=== PATIENT | female | born 1970 | race Two or more races ===

== ENCOUNTER 2018-10-14 11:41 | Inpatient (IN) | payer OTHER ==
[~2018-10-14] VITALS: Ht 167.6 cm; Wt 63.2 kg
[2018-10-14 13:13] LABS: Basophils # (auto) 0.1 uL; Eosinophils # (auto) 0.1 uL; Hemoglobin 12.8 g/dL (12.2-16.2); Lymphocytes # (auto) 2.2 uL; Monocytes # (auto) 0.9 uL
[2018-10-14 13:15] LABS: Basophils % (auto) 0.3 % (0.0-2.0); Eosinophils % (auto) 0.3 % (0.0-7.0); Hematocrit 37.6 % (36.0-46.0); Lymphocytes % (auto) 12.1 % (10.0-50.0); Mean Corpuscular Hemoglobin 32.5 pg (28.0-32.0); Mean Corpuscular Hgb Conc. 34.2 g/dL (32.0-36.0); Mean Corpuscular Volume 95.3 fL (80.0-100.0); Monocytes % (auto) 4.9 % (0.0-12.0); Neutrophils % (auto) 82.4 % (37.0-80.0); Nucleated Red Blood Cells % 0.1 %; Red Blood Cells 3.94 10^6/uL (4.0-5.20); Red Cell Distribution Width 12.5 % (11.8-14.3); White Blood Cell 18.2 10^3/uL (4.4-10.8)
[2018-10-14 13:24] LABS: INR 0.95 (0.9-1.15); Partial Thromboplastin Time 28.6 sec (23.78-33.04); Prothrombin Time 10.2 sec (9.27-12.13)
[2018-10-14 13:29] LABS: Albumin 2.2 g/dL (3.4-5.0); BUN/Creatinine Ratio 20.8; Calcium 8.7 mg/dL (8.5-10.1); Potassium 4.1 mmol/L (3.5-5.1)
[2018-10-14 13:32] LABS: Bilirubin, Total 0.3 mg/dL (0.2-1.0); Total Protein 9.2 g/dL (6.4-8.2)
[2018-10-14 14:36] LABS: Platelet Count (auto) 593 10^3/uL (140-450)
[2018-10-14] MEDS ORDERED: SODIUM CHLORIDE 0.9% 1,000 ML IVB ONE (15:21)
[2018-10-14] MEDS ORDERED: CLINDAMYCIN 600MG IV 50 ML IV ONE (15:30)
[2018-10-14] MEDS ORDERED: HYDROcodone-ACET 10/325MG TAB PO ONE (15:30)
[2018-10-14] MEDS ORDERED: NITROGLYCERIN 0.4 MG SL TAB SL PRN (17:30)
[2018-10-14] MEDS ORDERED: MORPHINE SULFATE 4 MG/ML SYR/VIAL IV PRN (17:30)
[2018-10-14] MEDS ORDERED: hydrALAZINE HCL 20 MG/ML VL IV PRN (17:30)
[2018-10-14] MEDS ORDERED: MORPHINE SULFATE 4 MG/ML SYR/VIAL IV ONE (17:30)
[2018-10-14] MEDS ORDERED: VANCOMYCIN PER PHARMACY 0 MG IV SCH (17:30)
[2018-10-14] MEDS ORDERED: DEXTROSE (50%) 50ML SYRG IV PRN (17:45)
[2018-10-14 18:10] LABS: Cholesterol 82 mg/dL (< 200); Triglycerides 126 mg/dL (< 150)
[2018-10-14 18:12] LABS: HDL Cholesterol 34 mg/dL (40-59); LDL Cholesterol 49 mg/dL (< 100)
[2018-10-14] MEDS: PIPERACILLIN-TAZOB 3.375GM 100 ML IV SCH ×2 (18:16→23:50)
[2018-10-14] MEDS: ONDANSETRON HCL 4 MG/2 ML VIAL IV PRN (18:17)
[2018-10-14] MEDS: SODIUM CHLORIDE 0.9% 1,000 ML IV SCH (19:42)
[2018-10-14 21:00] VITALS: BP 144/91
--- NOTE | 2018-10-14 21:00 | NUR ---
MS admit from [facility] admitted to [facility]/MS after SBAR received. Patient oriented to franklin Fagan RN, unit, room, bed, and unit policies regarding patient care and visiting hours. Patient weighed by bedscale and encouraged to call if they need something. All questions and concerns addressed, patient verbalized understanding. Note: pt. refused to take photo on her left foot ulcer due to pain. Addendum: 10/14/18 at 2349 by Katy Hunt RN above note time was 2200
[2018-10-14] MEDS ORDERED: ACETAMINOPHEN 325 MG TAB PO ONE (21:15)
[2018-10-14] MEDS: VANCOMYCIN 1GM/250ML 250 ML IV SCH (21:29)
[2018-10-14 22:00] VITALS: BP 137/79
[2018-10-14] MEDS: ACCU-CHEK COMFORT CURVE STRIP VI SCH (22:19)
[2018-10-14] MEDS: InsuLIN REG 1unit/0.01ml Soln (100units/ml) SC SCH (22:20)
[2018-10-14] MEDS ORDERED: GLIP-116 PO (23:15)
[2018-10-14] MEDS ORDERED: METF-370 PO (23:15)
[2018-10-15] MEDS ORDERED: MAGNESIUM SULFATE 1GM/100ML 200 ML IV ONE (00:17)
[2018-10-15] MEDS: MAGNESIUM SULFATE 1GM/100ML 100 ML IV SCH ×2 (00:18→01:34)
[2018-10-15] MEDS: SODIUM CHLORIDE 0.9% 1,000 ML IV SCH ×3 (01:45→17:45)
[2018-10-15 05:30] VITALS: BP 145/85
[2018-10-15] MEDS: PIPERACILLIN-TAZOB 3.375GM 100 ML IV SCH ×3 (06:00→18:00)
[2018-10-15 06:07] LABS: Basophils # (auto) 0.1 uL; Basophils % (auto) 0.3 % (0.0-2.0); Eosinophils # (auto) 0.1 uL; Hemoglobin 11.6 g/dL (12.2-16.2); Mean Corpuscular Volume 95.1 fL (80.0-100.0); White Blood Cell 15.2 10^3/uL (4.4-10.8)
[2018-10-15 06:10] LABS: Eosinophils % (auto) 0.6 % (0.0-7.0); Hematocrit 34.3 % (36.0-46.0); Lymphocytes # (auto) 2.1 uL; Lymphocytes % (auto) 13.9 % (10.0-50.0); Mean Corpuscular Hemoglobin 32.2 pg (28.0-32.0); Mean Corpuscular Hgb Conc. 33.8 g/dL (32.0-36.0); Monocytes # (auto) 1.2 uL; Neutrophils # (auto) 11.7 uL; Neutrophils % (auto) 77.2 % (37.0-80.0); Platelet Count (auto) 568 10^3/uL (140-450); Red Blood Cells 3.61 10^6/uL (4.0-5.20); Red Cell Distribution Width 12.3 % (11.8-14.3)
[2018-10-15 06:16] LABS: BUN/Creatinine Ratio 19.7; Calcium 8.3 mg/dL (8.5-10.1); Potassium 4.4 mmol/L (3.5-5.1)
[2018-10-15] MEDS: InsuLIN REG 1unit/0.01ml Soln (100units/ml) SC SCH ×4 (06:18→22:48)
[2018-10-15] MEDS: ACCU-CHEK COMFORT CURVE STRIP VI SCH ×4 (06:19→22:35)
--- NOTE | 2018-10-15 08:10 | NUR ---
SHIFT REPORT Received report from Katy SAUCEDA RN. per RN patient refused wound photos.
--- NOTE | 2018-10-15 08:50 | NUR ---
Opening Shift Note Assumed care of patient, awake and alert. No S/S of distress/SOB or pain. Instructed on POC and to call for assist PRN, will continue to monitor for changes Q1hr and PRN.
[2018-10-15 09:00] VITALS: BP 125/84
[2018-10-15] MEDS: VANCOMYCIN 1GM/250ML 250 ML IV SCH ×2 (09:04→21:21)
[2018-10-15] MEDS: HYDROcodone-ACET 5/325MG TAB PO PRN ×3 (09:05→22:35)
--- NOTE | 2018-10-15 12:23 | NUR ---
WOUND CARE/PHOTOS Patient free of pain at this time, agreed to wound care and photos. Photos taken as per policy.
[2018-10-15 13:00] VITALS: BP 126/72
--- NOTE | 2018-10-15 16:30 | NUR ---
WOUND CARE NOTE: Wound care consult received from physician. Patient is a 48 yo female admitted for sepsis and osteomyelitis to left foot. Patient with history of hypertension, diabetes and hysterectomy. Patient recently medicated for pain by bedside RNNena and patient states pain is tolerable. Last Cedric score is 20. Patient pending podiatry consultation. Photographs taken by coastal/harbor defense officer. Patient noted to have several wounds to left foot. Wound to dorsal foot measures 2x2cm and is black with extending erythema approximately 4cm. Wound to plantar foot measures 1x1cm and is black. No drainage noted to either wound. Wounds cleanse with NS and culture taken from dorsal wound. Covered wound bedside with foam dressing and secured with kerlex gauze. RECOMMENDATIONS: Diabetic teaching; Dietary consult; Nursing to cleanse wounds with wound cleanser, pat dry and cover with foam and secure with kerlex, change daily and PRN; wound care team to continue to follow. Addendum: 10/15/18 at 1859 by LAUREL GRADY RN Amended: Links added.
--- NOTE | 2018-10-15 16:30 | NUR ---
WOUND CARE supply teacher rounding on patient for consult. RN will collect culture.
[2018-10-15 17:00] VITALS: BP 156/89
--- NOTE | 2018-10-15 19:10 | NUR ---
Opening Shift Note Assumed care of patient, awake and alert. No S/S of distress or SOB. Instructed on POC and to call for assistance PRN, will continue to monitor for changes Q1hr and PRN.
[2018-10-15] MEDS: ACETAMINOPHEN 500 MG TAB PO PRN (21:24)
--- NOTE | 2018-10-15 21:25 | NUR ---
Patient has fever Patient has a temperature of 101.1. Tylenol given and cooling measures applied. Patient is not showing any signs or symptoms of distress. Will continue to monitor patient.
[2018-10-15 21:48] VITALS: BP 96/66
--- NOTE | 2018-10-15 22:40 | NUR ---
Reassess fever Patient currently has a temperature of 99.2. Cooling measures continued, patient is not showing any signs or symptoms of distress. Will continue to monitor patient.
[2018-10-16] MEDS: PIPERACILLIN-TAZOB 3.375GM 100 ML IV SCH ×5 (00:06→23:29)
[2018-10-16] MEDS: SODIUM CHLORIDE 0.9% 1,000 ML IV SCH ×3 (01:45→23:29)
[2018-10-16 05:27] VITALS: BP 111/73
[2018-10-16] MEDS: InsuLIN REG 1unit/0.01ml Soln (100units/ml) SC SCH ×4 (06:32→21:52)
[2018-10-16] MEDS: INSULIN NPH Isophane (HUMAN) 1unit/0.01ml Susp(100units/ml) SC SCH ×2 (06:32→17:20)
[2018-10-16] MEDS: ACCU-CHEK COMFORT CURVE STRIP VI SCH ×4 (06:32→21:52)
--- NOTE | 2018-10-16 07:50 | NUR ---
Opening Shift Note Assumed care of patient, awake and alert. Bolivian speaker, dressing to left foot clean/dry/intact. No S/S of distress/SOB or pain. Instructed on POC and to call for assist PRN, bed locked in the lowest position, call light within easy reach, will continue to monitor for changes Q1hr and PRN.
[2018-10-16 08:00] VITALS: BP 157/104
[2018-10-16] MEDS: VANCOMYCIN 1GM/250ML 250 ML IV SCH ×2 (08:45→21:02)
[2018-10-16] MEDS: HYDROcodone-ACET 5/325MG TAB PO PRN ×2 (08:45→20:37)
[2018-10-16 09:00] VITALS: BP 157/104
--- NOTE | 2018-10-16 09:20 | NUR ---
DR. FRANK AT BEDSIDE.
[2018-10-16 09:44] LABS: Basophils # (auto) 0.1 uL; Eosinophils # (auto) 0.1 uL; Lymphocytes # (auto) 1.6 uL; Monocytes # (auto) 0.9 uL; Monocytes % (auto) 5.5 % (0.0-12.0); Neutrophils # (auto) 13.5 uL
[2018-10-16 09:46] LABS: Basophils % (auto) 0.3 % (0.0-2.0); Eosinophils % (auto) 0.7 % (0.0-7.0); Hematocrit 35.1 % (36.0-46.0); Hemoglobin 11.9 g/dL (12.2-16.2); Lymphocytes % (auto) 9.8 % (10.0-50.0); Mean Corpuscular Hemoglobin 32.4 pg (28.0-32.0); Mean Corpuscular Volume 95.2 fL (80.0-100.0); Neutrophils % (auto) 83.7 % (37.0-80.0); Platelet Count (auto) 625 10^3/uL (140-450); Red Blood Cells 3.68 10^6/uL (4.0-5.20); Red Cell Distribution Width 12.5 % (11.8-14.3); White Blood Cell 16.2 10^3/uL (4.4-10.8)
[2018-10-16 10:24] LABS: BUN/Creatinine Ratio 13.6; Calcium 8.5 mg/dL (8.5-10.1); Potassium 4.6 mmol/L (3.5-5.1)
[2018-10-16] MEDS: MORPHINE SULFATE 4 MG/ML SYR/VIAL IV PRN (10:52)
--- NOTE | 2018-10-16 12:06 | NUR ---
Nutrition consult/assessment Notes please see attached link for complete assessment Est. Needs BW [id number] kcal (25-30 kcal/kgBW), 62-80 gms pro (1.0-1.3 gms/kgBW r/t severe hypoalb, wounds). Will continue to monitor pertinent labs and reassess nutrient needs prn Addendum: 10/16/18 at [address] Amended: Links added.
[2018-10-16 12:32] VITALS: BP 150/81
[2018-10-16 17:00] VITALS: BP 140/68
--- NOTE | 2018-10-16 17:44 | NUR ---
DR. RICO AT BEDSIDE FOR PODIATRY CONSULT.
--- NOTE | 2018-10-16 17:55 | NUR ---
NEW ORDER FROM DR. RICO, MRI LEFT FOOT W/WO CONTRAST. ORDER READ BACK AND VERIFIED, WILL PUT IN ORDER.
--- NOTE | 2018-10-16 17:58 | NUR ---
PT AND PT'S STATED SHE DOES NOT HAVE PACEMAKER, Sx CLIPS, WIRES, RODS.
--- NOTE | 2018-10-16 18:05 | NUR ---
DRESSING CHANGE TO LEFT FOOT DONE. PT TOLERATED WELL.
--- NOTE | 2018-10-16 19:24 | NUR ---
CARE ENDORSED TO PAYAL KINNEY.
--- NOTE | 2018-10-16 20:00 | NUR ---
OPENING NOTE RECEIVED REPORT FROM DAYSHIFT RN. ASSUMING ROLE OF CARE OF PATIENT AT THIS TIME. PATIENT SHOWING NO SIGN OF DISTRESS, SHORTNESS OF BREATH, BUT PATIENT STATES PAIN AT 9/10. PATIENT WILL BE GIVEN PAIN MEDICATION WHEN AVAILABLE. PATIENT EDUCATED ON PLAN OF CARE FOR THE NIGHT. PATIENT VERBALIZED UNDERSTANDING. BED LOWERED, CALL LIGHT WITHIN REACH, AND PATIENT WILL BE ROUNDED ON EVERY HOUR AND NEEDED.
[2018-10-16] MEDS: MULTIPLE VITAMINS W/ MINERALS TAB PO SCH (21:52)
[2018-10-16] MEDS: ASCORBIC ACID 500 MG TAB PO SCH (21:52)
[2018-10-16 22:00] VITALS: BP 116/71
[2018-10-16] MEDS: Pro-Stat SF 30ml Vanilla PO SCH (22:14)
[2018-10-17] VITALS (7 sets, daily range): BP systolic 100–158; BP diastolic 69–97
[2018-10-17] MEDS: PIPERACILLIN-TAZOB 3.375GM 100 ML IV SCH ×4 (05:19→23:35)
[2018-10-17] MEDS: ONDANSETRON HCL 4 MG/2 ML VIAL IV PRN (05:19)
[2018-10-17] MEDS: InsuLIN REG 1unit/0.01ml Soln (100units/ml) SC SCH ×4 (06:38→22:05)
[2018-10-17] MEDS: ACCU-CHEK COMFORT CURVE STRIP VI SCH ×4 (06:38→21:32)
[2018-10-17] MEDS: INSULIN NPH Isophane (HUMAN) 1unit/0.01ml Susp(100units/ml) SC SCH ×2 (06:38→18:12)
--- NOTE | 2018-10-17 07:50 | NUR ---
Opening Shift Note Assumed care of patient, awake and alert. No S/S of distress/SOB or pain. IV to right Ac 22G infusing Ns @ 80ml/hr. Dressing to left foot clean/dry/intact. Instructed on POC and to call for assist PRN, bed locked in the lowest position, call light within easy reach, will continue to monitor for changes Q1hr and PRN.
[2018-10-17 09:46] LABS: Basophils # (auto) 0.1 uL; Basophils % (auto) 0.3 % (0.0-2.0); Eosinophils # (auto) 0 uL; Eosinophils % (auto) 0.2 % (0.0-7.0); Lymphocytes # (auto) 1.5 uL; Mean Corpuscular Volume 94.4 fL (80.0-100.0); Platelet Count (auto) 615 10^3/uL (140-450)
[2018-10-17 09:49] LABS: Hematocrit 31.6 % (36.0-46.0); Hemoglobin 10.8 g/dL (12.2-16.2); Lymphocytes % (auto) 7.9 % (10.0-50.0); Mean Corpuscular Hemoglobin 32.4 pg (28.0-32.0); Mean Corpuscular Hgb Conc. 34.3 g/dL (32.0-36.0); Neutrophils # (auto) 16.9 uL; Neutrophils % (auto) 86.6 % (37.0-80.0); Red Blood Cells 3.35 10^6/uL (4.0-5.20); White Blood Cell 19.6 10^3/uL (4.4-10.8)
[2018-10-17] MEDS: MULTIPLE VITAMINS W/ MINERALS TAB PO SCH ×2 (10:16→21:27)
[2018-10-17] MEDS: ASCORBIC ACID 500 MG TAB PO SCH ×2 (10:16→21:27)
[2018-10-17] MEDS: Pro-Stat SF 30ml Vanilla PO SCH ×2 (10:16→21:32)
[2018-10-17] MEDS: MORPHINE SULFATE 4 MG/ML SYR/VIAL IV PRN ×3 (10:16→21:26)
[2018-10-17] MEDS: VANCOMYCIN 1GM/250ML 250 ML IV SCH ×2 (10:24→21:21)
[2018-10-17] MEDS: SODIUM CHLORIDE 0.9% 1,000 ML IV SCH ×2 (11:06→23:33)
--- NOTE | 2018-10-17 12:00 | NUR ---
PT OFF UNIT FOR MRI LEFT FOOT VIA W/C, NO S/S OF ACUTE DISTRESS NOTED AT DEPARTURE.
--- NOTE | 2018-10-17 13:15 | NUR ---
PT BACK TO ROOM, VS WNL WILL CONTINUE CARE.
[2018-10-17] MEDS ORDERED: FLUCONAZOLE 200MG/100ML 100 ML IV ONE (15:00)
[2018-10-17] MEDS ORDERED: LIDOCAINE 1% (LOCAL ANESTH.) PF 5ml SDV ID ONE (16:45)
--- NOTE | 2018-10-17 16:45 | NUR ---
PICC line placement Patient/Patient significant other educated on need for PICC line placement. All risks and benefits explained and all questions and concerns addressed prior to procedure. Noted past medical history and allergies with no contraindications. INR and Plt counts within acceptable range. 4 fr PICC line inserted via right basilic vein using [employer]'s [employer] US and Tip Location System. Sterile technique with maximum barrier precautions utilized. Blood return obtained from the lumen and each flushed easily with NS using proper technique. PICC secured with Stat-lock; biodisc and occlusive dressing applied. Stat portable chest x-ray obtained for PICC tip placement. *Baseline Arm Circumference 24cm. Internal length 38cm. External length 0cm. PICC lot # [id number]. Note: Placed easily
--- NOTE | 2018-10-17 20:00 | NUR ---
Opening Shift Note Assumed care of patient, awake and alert, Djiboutian speaking, military aircraft designer at bedside. oriented x 4. on room air with even and unlabored respirations, no S/S of distress or SOB or pain. Dressing to left foot clean, dry, and intact. PICC intact and patent. bed low locked position with side rails up x 2 and call light within reach. BSC within reach at bedside. Instructed on POC and to call for assist PRN, will continue to monitor for changes Q1hr and PRN.
--- NOTE | 2018-10-17 20:11 | NUR ---
CARE ENDORSED TO NIKO KINNEY.
[2018-10-17] MEDS: SODIUM CHLOR 0.9% PF (SALINE LOCK) 10ML VIAL/SYR IV SCH (21:32)
--- NOTE | 2018-10-17 22:45 | NUR ---
Wound dressing change dressing change to left foot done per orders. patient tolerated well.
[2018-10-18 05:00] VITALS: BP 115/75
[2018-10-18] MEDS: PIPERACILLIN-TAZOB 3.375GM 100 ML IV SCH ×3 (06:45→17:49)
[2018-10-18 06:48] LABS: Basophils # (auto) 0 uL; Eosinophils # (auto) 0.1 uL; Lymphocytes # (auto) 1.5 uL; Monocytes # (auto) 0.9 uL
[2018-10-18] MEDS: ACCU-CHEK COMFORT CURVE STRIP VI SCH ×4 (06:57→21:24)
[2018-10-18 06:59] LABS: BUN/Creatinine Ratio 15.3; Calcium 8.3 mg/dL (8.5-10.1); Potassium 3.8 mmol/L (3.5-5.1)
--- NOTE | 2018-10-18 07:00 | NUR ---
Closing Note patient resting in bed with even and unlabored respirations. iv intact and patent infusing zosyn at 33.33ml/hr. dressing to left foot clean, dry, and intact. endorsed care to day shift RN.
[2018-10-18] MEDS: INSULIN NPH Isophane (HUMAN) 1unit/0.01ml Susp(100units/ml) SC SCH ×2 (07:03→17:28)
[2018-10-18] MEDS: InsuLIN REG 1unit/0.01ml Soln (100units/ml) SC SCH ×4 (07:03→21:24)
[2018-10-18 07:13] LABS: Basophils % (auto) 0.1 % (0.0-2.0); Eosinophils % (auto) 0.6 % (0.0-7.0); Hematocrit 29.1 % (36.0-46.0); Hemoglobin 10.2 g/dL (12.2-16.2); Lymphocytes % (auto) 10.7 % (10.0-50.0); Mean Corpuscular Hemoglobin 32.9 pg (28.0-32.0); Mean Corpuscular Hgb Conc. 34.9 g/dL (32.0-36.0); Mean Corpuscular Volume 94.4 fL (80.0-100.0); Monocytes % (auto) 6.6 % (0.0-12.0); Neutrophils # (auto) 11.7 uL; Platelet Count (auto) 593 10^3/uL (140-450); Red Blood Cells 3.08 10^6/uL (4.0-5.20); Red Cell Distribution Width 12.4 % (11.8-14.3); White Blood Cell 14.2 10^3/uL (4.4-10.8)
[2018-10-18 08:00] VITALS: BP 132/89
[2018-10-18 09:38] VITALS: BP 132/89
[2018-10-18] MEDS: VANCOMYCIN 1GM/250ML 250 ML IV SCH ×2 (10:10→21:00)
[2018-10-18] MEDS: FLUCONAZOLE 200MG/100ML 100 ML IV SCH (10:10)
[2018-10-18] MEDS: Pro-Stat SF 30ml Vanilla PO SCH ×2 (10:11→21:23)
[2018-10-18] MEDS: MULTIPLE VITAMINS W/ MINERALS TAB PO SCH ×2 (10:11→21:23)
[2018-10-18] MEDS: ASCORBIC ACID 500 MG TAB PO SCH ×2 (10:11→21:24)
[2018-10-18] MEDS: SODIUM CHLOR 0.9% PF (SALINE LOCK) 10ML VIAL/SYR IV SCH ×2 (10:11→21:23)
[2018-10-18] MEDS: MORPHINE SULFATE 4 MG/ML SYR/VIAL IV PRN ×2 (10:16→17:28)
[2018-10-18] MEDS: SODIUM CHLORIDE 0.9% 1,000 ML IV SCH (12:53)
[2018-10-18 13:26] VITALS: BP 137/80
[2018-10-18] MEDS: HYDROcodone-ACET 5/325MG TAB PO PRN (13:46)
--- NOTE | 2018-10-18 15:50 | NUR ---
DR. RAMIREZ AT BEDSIDE.
--- NOTE | 2018-10-18 16:02 | NUR ---
NEW ORDERS FROM DR. RICO OBTAIN CONSENT FOR AMPUTATION OF THE FOURTH LEFT TOE, RESECTION OF OSTEOMYELITIC BONE FOURTH METATARSAL HEAD, NPO AFTER MIDNIGHT SATURDAY. SURGERY PLANNED FOR Saturday. ORDERS READ BACK AND VERIFIED, WILL PUT IN ORDER.
[2018-10-18] MEDS ORDERED: MORPHINE SULFATE 4 MG/ML SYR/VIAL IV PRN (16:15)
--- NOTE | 2018-10-18 16:55 | NUR ---
HOUSE SUP NOTIFIED OF ORDER FROM DR. RICO FOR Sx ON Saturday.
[2018-10-18 17:18] VITALS: BP 125/74
--- NOTE | 2018-10-18 19:27 | NUR ---
CARE ENDORSED TO BARAK KINNEY
--- NOTE | 2018-10-18 19:45 | NUR ---
OPENING SHIFT NOTE RECEIVED REPORT FROM DAYSHIFT RN. PATIENT RESTING COMFORTABLY IN BED. NO S/S OF DISTRESS OR SOB, NO PAIN NOTED OR REPORTED. PATIENT A/O X4. UPDATED PATIENT ON POC, VERBALIZED UNDERSTANDING. BED LOCKED IN LOW POSITION, CALL LIGHT WITHIN REACH. WILL CONTINUE TO MONITOR PATIENT Q1HR AND PRN.
[2018-10-18 22:00] VITALS: BP 114/75
[2018-10-19] VITALS (7 sets, daily range): BP systolic 111–164; BP diastolic 56–95
[2018-10-19] MEDS: SODIUM CHLORIDE 0.9% 1,000 ML IV SCH ×2 (00:30→13:13)
[2018-10-19] MEDS: PIPERACILLIN-TAZOB 3.375GM 100 ML IV SCH ×4 (05:49→18:52)
[2018-10-19] MEDS: InsuLIN REG 1unit/0.01ml Soln (100units/ml) SC SCH ×4 (06:35→21:33)
[2018-10-19] MEDS: INSULIN NPH Isophane (HUMAN) 1unit/0.01ml Susp(100units/ml) SC SCH ×2 (06:35→18:52)
[2018-10-19] MEDS: ACCU-CHEK COMFORT CURVE STRIP VI SCH ×4 (06:35→21:34)
[2018-10-19] MEDS: MORPHINE SULFATE 4 MG/ML SYR/VIAL IV PRN ×3 (06:43→20:57)
[2018-10-19 06:47] LABS: Basophils # (auto) 0.1 uL; Hemoglobin 10.3 g/dL (12.2-16.2); Lymphocytes # (auto) 2.2 uL; Neutrophils # (auto) 10.1 uL; White Blood Cell 13.5 10^3/uL (4.4-10.8)
[2018-10-19 06:50] LABS: Basophils % (auto) 0.4 % (0.0-2.0); Eosinophils # (auto) 0.1 uL; Eosinophils % (auto) 1.1 % (0.0-7.0); Hematocrit 29.4 % (36.0-46.0); Lymphocytes % (auto) 16.1 % (10.0-50.0); Mean Corpuscular Hemoglobin 33.4 pg (28.0-32.0); Mean Corpuscular Hgb Conc. 35.1 g/dL (32.0-36.0); Mean Corpuscular Volume 95.1 fL (80.0-100.0); Monocytes % (auto) 7.3 % (0.0-12.0); Neutrophils % (auto) 75.1 % (37.0-80.0); Platelet Count (auto) 655 10^3/uL (140-450); Red Blood Cells 3.09 10^6/uL (4.0-5.20); Red Cell Distribution Width 12.4 % (11.8-14.3)
[2018-10-19 07:05] LABS: BUN/Creatinine Ratio 16.2; Calcium 8.8 mg/dL (8.5-10.1); Potassium 4.1 mmol/L (3.5-5.1)
[2018-10-19] MEDS: FLUCONAZOLE 200MG/100ML 100 ML IV SCH (10:07)
[2018-10-19] MEDS: MULTIPLE VITAMINS W/ MINERALS TAB PO SCH ×2 (10:08→21:32)
[2018-10-19] MEDS: Pro-Stat SF 30ml Vanilla PO SCH ×2 (10:08→21:33)
[2018-10-19] MEDS: SODIUM CHLOR 0.9% PF (SALINE LOCK) 10ML VIAL/SYR IV SCH ×2 (10:08→21:32)
[2018-10-19] MEDS: ASCORBIC ACID 500 MG TAB PO SCH ×2 (10:08→21:33)
[2018-10-19] MEDS ORDERED: VANCOMYCIN 1,250 MG in D5W 5% 250 ML IV SCH (14:00)
--- NOTE | 2018-10-19 19:05 | NUR ---
ASSUMED PATIENT CARE- NOC SHIFT PATIENT IS BENGALI SPEAKING ONLY. PATIENT IS ALERT AND ORIENTED X4, ANSWERS IN COMPLETE SENTENCES AND MAKES APPROPRIATE EYE CONTACT. PATIENT IS IN BED, HEAD OF BED IS UP >30 DEGREES AND BED RAILS UP X2 FOR SAFETY PRECAUTIONS. BEDSIDE TABLE WITHIN REACH, CALL LIGHT WITHIN REACH. DISCUSSED POC WITH PATIENT AND INSTRUCTED PATIENT TO CALL PRN; PATIENT VERBALIZED UNDERSTANDING. WILL CONTINUE TO MONITOR Q1H AND PRN. BEDSIDE COMMODE AT BEDSIDE. DRESSING DRY AND INTACT.
[2018-10-20] VITALS (7 sets, daily range): BP systolic 113–157; BP diastolic 69–103
--- NOTE | 2018-10-20 | NUR ---
PATIENT NPO FOR PROCEDURE. PATIENT IS AWARE; VERBALIZED UNDERSTANDING.
[2018-10-20] MEDS: PIPERACILLIN-TAZOB 3.375GM 100 ML IV SCH ×2 (00:33→05:50)
[2018-10-20] MEDS: SODIUM CHLORIDE 0.9% 1,000 ML IV SCH ×2 (01:20→15:04)
--- NOTE | 2018-10-20 04:50 | NUR ---
URINE SENT TO LAB FOR UA PROTOCOL FOR PROCEDURE
--- NOTE | 2018-10-20 05:10 | NUR ---
EKG COMPLETE PROTOCOL FOR PROCEDURE, PRINT OUT IN HARD CHART
[2018-10-20 05:12] LABS: Urine Bacteria NONE SEEN /hpf (None Seen); Urine Blood TRACE /uL (Negative); Urine Specific Gravity 1.006 (1.001-1.035); Urine WBC 1 /hpf (0 - 5)
[2018-10-20] MEDS: InsuLIN REG 1unit/0.01ml Soln (100units/ml) SC SCH ×4 (06:39→22:55)
[2018-10-20] MEDS: INSULIN NPH Isophane (HUMAN) 1unit/0.01ml Susp(100units/ml) SC SCH ×2 (06:39→18:25)
[2018-10-20] MEDS: ACCU-CHEK COMFORT CURVE STRIP VI SCH ×4 (06:40→22:55)
--- NOTE | 2018-10-20 07:00 | NUR ---
Opening Shift Note Assumed care of patient, awake and alert. No S/S of distress/SOB. Pain reported at 8/10. Pain management options discussed with the patient. Instructed on POC and to call for assist PRN, will continue to monitor for changes Q1hr and PRN.
[2018-10-20 07:10] LABS: Basophils # (auto) 0.1 uL; Lymphocytes # (auto) 1.7 uL
[2018-10-20 07:12] LABS: Basophils % (auto) 0.6 % (0.0-2.0); Eosinophils # (auto) 0.1 uL; Eosinophils % (auto) 1.2 % (0.0-7.0); Hematocrit 30.3 % (36.0-46.0); Hemoglobin 10.5 g/dL (12.2-16.2); Lymphocytes % (auto) 14.4 % (10.0-50.0); Mean Corpuscular Hemoglobin 32.7 pg (28.0-32.0); Mean Corpuscular Hgb Conc. 34.5 g/dL (32.0-36.0); Mean Corpuscular Volume 94.8 fL (80.0-100.0); Monocytes # (auto) 0.9 uL; Monocytes % (auto) 7.3 % (0.0-12.0); Neutrophils # (auto) 9.2 uL; Neutrophils % (auto) 76.5 % (37.0-80.0); Platelet Count (auto) 644 10^3/uL (140-450); Red Cell Distribution Width 12.1 % (11.8-14.3)
[2018-10-20 07:21] LABS: BUN/Creatinine Ratio 15.5; Calcium 8.8 mg/dL (8.5-10.1); Magnesium 1.7 mg/dL (1.6-2.6); Potassium 4.1 mmol/L (3.5-5.1)
--- NOTE | 2018-10-20 09:00 | NUR ---
IV removal IV DC'd with clean sterile technique, catheter fully intact. Pressure dressing applied to site. Patient tolerated well. NOTE: Iv site was tender to touch and caused the patient pain. Was removed for phlebitis.
--- NOTE | 2018-10-20 09:07 | NUR ---
Patient to Or for procedure. VS stable and WNL at time of transfer. The patient is calm. went with the patient to pre-op. report given to tommy. Will await patient's return to her room.
[2018-10-20] MEDS ORDERED: BUPIVACAINE 0.75% INJ 10ML MPV SDV IJ ONE (09:11)
[2018-10-20] MEDS ORDERED: ceFAZolin 1GM/50ML 50 ML IV ONE (09:11)
[2018-10-20] MEDS ORDERED: PROPOFOL 10 MG/ML 20 ML IV ONE (09:23)
[2018-10-20] MEDS ORDERED: fentaNYL CITRATE 100 MCG/2 ML VL ONE (09:23)
[2018-10-20] MEDS ORDERED: MIDAZOLAM HCL 1MG/1ML-2 ML VIAL ONE (09:23)
[2018-10-20] MEDS ORDERED: ceFAZolin 1GM VL ONE (09:33)
[2018-10-20] MEDS: Pro-Stat SF 30ml Vanilla PO SCH ×2 (10:00→20:43)
[2018-10-20] MEDS ORDERED: ONDANSETRON HCL 4 MG/2 ML VIAL IV ONE (10:15)
[2018-10-20] MEDS ORDERED: ePHEDrine SULFATE 50 MG/ML AMP IV PRN (10:15)
[2018-10-20] MEDS ORDERED: hydrALAZINE HCL 20 MG/ML VL IV PRN (10:15)
[2018-10-20] MEDS: HYDROmorphone HCL 2 MG/ML VL IV PRN ×2 (10:23→10:33)
[2018-10-20] MEDS: ONDANSETRON HCL 4 MG/2 ML VIAL IV PRN (10:41)
--- NOTE | 2018-10-20 11:03 | NUR ---
Patient back from procedure. Tolerated well, no complications noted. Site to the left foot is wrapped in kerlix. small amount od bright red drainage noted to the stie. Awaiting a wound vac placement by the wound care nurse.
--- NOTE | 2018-10-20 11:28 | NUR ---
Nutrition Follow-up Notes Wt.: 65.6 kg Pt was with MD at bedside. per records pt with resolving sepsis. per records pt to have sx today for her wounds. per nursing pt is NPO. pt was on CCHO 60 gm/meal diet with adequate PO of 75% x 6 per RN doc Est. Needs BW [id number] kcal (25-30 kcal/kgBW), 62-80 gms pro (1.0-1.3 gms/kgBW r/t severe hypoalb, wounds). Will continue to monitor pertinent labs and reassess nutrient needs prn Labs: CREAT 1.16 H, GLU 173 H Skin: Cedric scale 20, low risk, pt's with DFU per electronics assembler. Pls refer to chinese language professor's notes for details. Noted pt on MVI C GI: Pt has no BM reported per electronics assembler. PES: Altered nutrition related lab values r/t current/chronic medical condition aeb elev A1C, severe hypoalb, hypocalcemia, hyperglycemia Will continue to monitor PO intake, skin status, pertinent labs and weight trend. F/u in 3-5 days. Rec.: 1.) consider prostat 1 packet bid 2) resume diet as medically feasible 3) refer to CDE oN DC 4) continue current plan of care
[2018-10-20] MEDS: FLUCONAZOLE 200MG/100ML 100 ML IV SCH (12:11)
[2018-10-20] MEDS: SODIUM CHLOR 0.9% PF (SALINE LOCK) 10ML VIAL/SYR IV SCH ×2 (12:12→20:42)
[2018-10-20] MEDS: MULTIPLE VITAMINS W/ MINERALS TAB PO SCH ×2 (12:12→20:43)
[2018-10-20] MEDS: ASCORBIC ACID 500 MG TAB PO SCH ×2 (12:12→20:43)
[2018-10-20] MEDS: HYDROcodone-ACET 5/325MG TAB PO PRN ×2 (13:04→20:44)
--- NOTE | 2018-10-20 13:45 | NUR ---
WOUND CARE NOTE: IN TO SEE PATIENT AT THIS TIME PER MD ORDER FOR WOUND VAC PLACEMENT, FOLLOWING OPEN AMPUTATION OF RIGHT # 4 TOE. PATIENT RECENTLY RETURNED TO ROOM. POST OPERATIVE DRESSING REMOVED. PATIENT HAS BEEN PREMEDICATED FOR PAIN. WOUND MEASURES 10 X 3.5 X 2.8 CM. TENDON IS VISIBLE WITHIN OPEN WOUND BED. WOUND DRAINAGE IS SANGUINOUS IN VERY LIGHT AMOUNTS. CLEANSED SKIN WITH WOUND CLEANSER, PATTED DRY WITH STERILE GAUZE. APPLIED CAVILON BARRIER FILM AND CLEAR DRAPE TO PERIWOUND. PLACED WHITE FOAM WITHIN OPEN WOUND TO PROTECT TENDON. APPLIED BLACK GRANUFOAM, DRAPE, TRAC PAD. CONNECTED TO WOUND VAC, TURNED VAC, SETTING TO 125 MM/HG CONTINUOUS. GOOD SUCTION, NO LEAKS DETECTED. WOUND CARE TEAM WILL CONTINUE TO MONITOR. Addendum: 10/20/18 at 1911 by Nancy Ortiz RN Amended: Links added.
[2018-10-20] MEDS: MORPHINE SULFATE 4 MG/ML SYR/VIAL IV PRN ×3 (14:05→22:20)
[2018-10-20] MEDS: ceFAZolin 1GM/50ML 50 ML IV SCH ×2 (15:04→18:25)
--- NOTE | 2018-10-20 19:00 | NUR ---
ASSUMED PATIENT CARE- NOC SHIFT PATIENT IS ALERT AND ORIENT X4, ANSWERS IN COMPLETE SENTENCES AND MAKES APPROPRIATE EYE CONTACT. PATIENT IS YAKUT SPEAKING ONLY. PATIENT IS STATUS POST AMPUTATION OF LEFT FOURTH TOE, WOUND VAC IN PLACE. WOUND VAC IS DRAINING SCANT AMOUNT OF SEROSANGUINEOUS FLUID. DRAINING PROPERLY. PATIENT REPORTS PAIN 10/10. DRESSING IS CLEAN, DRY AND INTACT. BED IS LOCKED IN LOWEST POSITION, BED RAILS UP X2, BEDSIDE TABLE WITHIN REACH, CALL LIGHT WITHIN REACH. DISCUSSED POC WITH PATIENT AND INSTRUCTED PATIENT TO CALL PRN; PATIENT VERBALIZED UNDERSTANDING.
[2018-10-21] MEDS: ceFAZolin 1GM/50ML 50 ML IV SCH ×2 (00:40→05:37)
[2018-10-21 05:11] VITALS: BP 115/77
[2018-10-21] MEDS: MORPHINE SULFATE 4 MG/ML SYR/VIAL IV PRN ×4 (05:38→20:51)
[2018-10-21] MEDS: INSULIN NPH Isophane (HUMAN) 1unit/0.01ml Susp(100units/ml) SC SCH ×2 (06:51→17:10)
[2018-10-21] MEDS: InsuLIN REG 1unit/0.01ml Soln (100units/ml) SC SCH ×4 (06:51→22:06)
[2018-10-21] MEDS: ACCU-CHEK COMFORT CURVE STRIP VI SCH ×4 (06:52→22:06)
[2018-10-21] MEDS: ACETAMINOPHEN 500 MG TAB PO PRN (06:59)
--- NOTE | 2018-10-21 07:35 | NUR ---
patient is alert and oriented x4 with no distress noted, respirations are unlabored, at bedside, patient repositioned herself in bed, she verbalized she was in pain, will medicate as ordered to manage pain, wound vac to left foot is intact, no leaks noted, scant serous drainage noted. she has sensation to the foot, can move foot, will continue to monitor, dressing is c-d-i.
--- NOTE | 2018-10-21 08:47 | NUR ---
MESSAGE LEFT FOR REGGIE AT [facility] TO DISCUSS DISCHARGE PLAN. AWAITING CALL BACK.
[2018-10-21 09:00] VITALS: BP 134/87
[2018-10-21] MEDS: FLUCONAZOLE 200MG/100ML 100 ML IV SCH (09:10)
[2018-10-21] MEDS: ASCORBIC ACID 500 MG TAB PO SCH ×2 (09:11→21:58)
[2018-10-21] MEDS: MULTIPLE VITAMINS W/ MINERALS TAB PO SCH ×2 (09:11→21:58)
[2018-10-21] MEDS: SODIUM CHLOR 0.9% PF (SALINE LOCK) 10ML VIAL/SYR IV SCH ×2 (09:11→21:58)
[2018-10-21] MEDS: Pro-Stat SF 30ml Vanilla PO SCH ×2 (09:12→22:08)
--- NOTE | 2018-10-21 12:00 | NUR ---
WOUND CARE NOTE: Daily check of wound vac. Wound vac in place to left foot, dressing C/D/I with no signs of leak noted. Suction remains at 125mm Hg continuous. Dressing scheduled to be changed 10/23/18. All paperwork necessary for home vac left in chart for primary doctor to sign. KAJAL Salas aware. Wound care team to continue to follow.
[2018-10-21 13:00] VITALS: BP 139/92
--- NOTE | 2018-10-21 13:05 | NUR ---
dr doe came to assess the patient and verbalized he'd start d/c planning for home antibiotic, wound care and wound vac care. he answered all the patients questions.
[2018-10-21] MEDS ORDERED: CEFTRIAXONE SODIUM 2 GM in D5W 5% 50 ML IV ONE (15:00)
--- NOTE | 2018-10-21 15:57 | NUR ---
ORDER AND CLINICALS FAXED TO [facility] FOR HOME IV ABX AND NURSING.
[2018-10-21 17:00] VITALS: BP 155/92
[2018-10-21] MEDS: HYDROcodone-ACET 5/325MG TAB PO PRN (17:09)
--- NOTE | 2018-10-21 19:05 | NUR ---
ASSUMED PATIENT CARE- NOC SHIFT PATIENT IS ALERT AND ORIENTED, ANSWERS IN COMPLETE SENTENCES AND MAKES APPROPRIATE EYE CONTACT. PATIENT STATES THAT SHE FEELS BETTER TODAY AND THAT SHE IS READY TO GO HOME. PATIENT IS IN BED, BED IS LOCKED AT LOWEST POSITION, BED RAILS UP X2 AND HEAD OF BED IS UP >30 DEGREES FOR SAFETY PRECAUTIONS. BEDSIDE TABLE WITHIN REACH, CALL LIGHT WITHIN REACH. PATIENT HAS WOUND VAC, DRAINING PROPERLY. DRESSING TO LEFT FOOT IS CLEAN, DRY AND INTACT. DISCUSSED POC WITH PATIENT AND INSTRUCTED PATIENT TO CALL PRN; PATIENT VERBALIZED UNDERSTANDING. WILL CONTINUE TO MONITOR Q1H AND PRN.
[2018-10-21 20:00] VITALS: BP 136/86
[2018-10-21 22:00] VITALS: BP 136/86
[2018-10-22 05:00] VITALS: BP 132/83
[2018-10-22] MEDS: INSULIN NPH Isophane (HUMAN) 1unit/0.01ml Susp(100units/ml) SC SCH ×2 (06:43→18:09)
[2018-10-22] MEDS: InsuLIN REG 1unit/0.01ml Soln (100units/ml) SC SCH ×4 (06:43→22:28)
[2018-10-22] MEDS: ACCU-CHEK COMFORT CURVE STRIP VI SCH ×4 (06:44→22:28)
[2018-10-22] MEDS: HYDROcodone-ACET 5/325MG TAB PO PRN (06:44)
--- NOTE | 2018-10-22 06:52 | NUR ---
PROVIDED PATIENT WITH INCENTIVE SPIROMETER INSTRUCTED PATIENT ON HOW TO USE INCENTIVE SPIROMETER AND PROVIDED EDUCATIONS FOR DC USE AND ITS IMPORTANCE.
[2018-10-22 07:59] LABS: Basophils # (auto) 0.1 uL; Eosinophils # (auto) 0.2 uL; Hematocrit 31.3 % (36.0-46.0); Hemoglobin 10.8 g/dL (12.2-16.2); Monocytes # (auto) 0.7 uL
[2018-10-22 08:01] LABS: Basophils % (auto) 0.6 % (0.0-2.0); Eosinophils % (auto) 1.7 % (0.0-7.0); Lymphocytes # (auto) 1.8 uL; Lymphocytes % (auto) 15.6 % (10.0-50.0); Mean Corpuscular Hgb Conc. 34.6 g/dL (32.0-36.0); Mean Corpuscular Volume 95.4 fL (80.0-100.0); Monocytes % (auto) 6.2 % (0.0-12.0); Neutrophils # (auto) 8.6 uL; Neutrophils % (auto) 75.9 % (37.0-80.0); Platelet Count (auto) 615 10^3/uL (140-450); Red Blood Cells 3.28 10^6/uL (4.0-5.20); Red Cell Distribution Width 12.5 % (11.8-14.3); White Blood Cell 11.3 10^3/uL (4.4-10.8)
[2018-10-22 08:12] LABS: BUN/Creatinine Ratio 21.9; Calcium 9.2 mg/dL (8.5-10.1); Potassium 4.2 mmol/L (3.5-5.1)
[2018-10-22 08:41] VITALS: BP 154/93
[2018-10-22] MEDS: MORPHINE SULFATE 4 MG/ML SYR/VIAL IV PRN ×3 (09:08→20:57)
[2018-10-22] MEDS: FLUCONAZOLE 200MG/100ML 100 ML IV SCH (09:50)
[2018-10-22] MEDS: Pro-Stat SF 30ml Vanilla PO SCH ×2 (09:50→22:28)
[2018-10-22] MEDS: SODIUM CHLOR 0.9% PF (SALINE LOCK) 10ML VIAL/SYR IV SCH ×2 (09:50→22:27)
[2018-10-22] MEDS: ASCORBIC ACID 500 MG TAB PO SCH ×2 (09:50→22:28)
[2018-10-22] MEDS: MULTIPLE VITAMINS W/ MINERALS TAB PO SCH ×2 (09:50→22:28)
--- NOTE | 2018-10-22 10:57 | NUR ---
SPOKE WITH LISA AT [facility]. EXPLAINED TO HER THAT WE ARE UNABLE TO FIND A CONTRACTED HOME HEALTH AGENCY THAT WILL SERVICE PATIENT. LISA WILL TALK TO THEIR ELECTRICAL WORKER AND CALL BACK. PHONE NUMBER FOR LISA [phone] EXT
[2018-10-22] MEDS: CEFTRIAXONE SODIUM 2 GM in D5W 5% 50 ML IV SCH (11:30)
[2018-10-22 11:53] VITALS: BP 121/78
--- NOTE | 2018-10-22 15:20 | NUR ---
WOUND CARE NOTE: T/C from bedside RNMariel. Wound vacc is stating possible blockage. Troubleshoot wound vacc and changed out tract pad. Suction maintained at 125mm Hg continuous. Slight leak noted and reinforced edges with clear drape. Seal achieved. Scant amount of sanguinous drainage noted in tubing and canister. Plan for complete dressing change on 10/23/18. Wound care team to continue to follow.
--- NOTE | 2018-10-22 15:44 | NUR ---
ORDER AND CLINICALS FAXED TO [facility] FOR POSSIBLE CONSIDERATION OF SERVICING PATIENT. [employer] FORM AND CLINICALS FAXED TO [facility]. ORDER AND CLINICALS FAXED TO [facility]
[2018-10-22 16:44] VITALS: BP 162/94
[2018-10-22 22:00] VITALS: BP 137/88
[2018-10-23] MEDS: MORPHINE SULFATE 4 MG/ML SYR/VIAL IV PRN ×4 (04:42→20:41)
[2018-10-23 05:27] VITALS: BP 133/90
[2018-10-23] MEDS: INSULIN NPH Isophane (HUMAN) 1unit/0.01ml Susp(100units/ml) SC SCH ×2 (06:26→18:42)
[2018-10-23] MEDS: ACCU-CHEK COMFORT CURVE STRIP VI SCH ×4 (06:26→22:24)
[2018-10-23] MEDS: InsuLIN REG 1unit/0.01ml Soln (100units/ml) SC SCH ×4 (06:27→22:24)
[2018-10-23 08:12] VITALS: BP 137/88
[2018-10-23] MEDS: HYDROcodone-ACET 5/325MG TAB PO PRN ×2 (08:14→16:39)
[2018-10-23] MEDS: Pro-Stat SF 30ml Vanilla PO SCH ×2 (09:00→22:24)
[2018-10-23] MEDS: SODIUM CHLOR 0.9% PF (SALINE LOCK) 10ML VIAL/SYR IV SCH ×2 (09:30→22:25)
[2018-10-23] MEDS: ASCORBIC ACID 500 MG TAB PO SCH ×2 (10:07→22:24)
[2018-10-23] MEDS: FLUCONAZOLE 200MG/100ML 100 ML IV SCH (10:07)
[2018-10-23] MEDS: MULTIPLE VITAMINS W/ MINERALS TAB PO SCH ×2 (10:07→22:24)
--- NOTE | 2018-10-23 11:13 | NUR ---
Nutrition Follow-up Notes Wt.: 63.2 kg Pt was with WC RN by bedside when rounded this am. per records pt s/p sx for her wounds, resumed on CCHO 60 gm/meal diet with adequate PO of 75% x6 per RN doc Est. Needs BW [id number] kcal (25-30 kcal/kgBW), 62-80 gms pro (1.0-1.3 gms/kgBW r/t severe hypoalb, wounds). Will continue to monitor pertinent labs and reassess nutrient needs prn Labs: BUN 25 H, CREAT 1.14 H, GLU 203 H Skin: Cedric scale 20, low risk, pt's with s/p debridement for DFU per cosmetic sales. Pls refer to clinic mgr's notes for details. Noted pt on MVI C GI: Pt has no BM reported per cosmetic sales. PES: Altered nutrition related lab values r/t current/chronic medical condition aeb elev A1C, severe hypoalb, hypocalcemia, hyperglycemia Will continue to monitor PO intake, skin status, pertinent labs and weight trend. F/u in 3-5 days. Rec.: 1.) consider prostat 1 packet bid if alb trend dwn with improved RFT. 2) refer to CDE oN DC 4) continue current plan of care
[2018-10-23 11:52] VITALS: BP 129/87
[2018-10-23] MEDS: CEFTRIAXONE SODIUM 2 GM in D5W 5% 50 ML IV SCH (12:00)
--- NOTE | 2018-10-23 12:00 | NUR ---
Spoke with insurance regarding wound vac. Stated they would bring it to bedside within the next two hours. Gave them the room number of the patient and the phone number of the hospital.
--- NOTE | 2018-10-23 12:10 | NUR ---
WOUND CARE NOTE: Wound care in to see patient for reevaluation of R foot wound and to change wound vac dressing. Patient is resting in bed in Rm 286A. She's premedicated for pain by her bedside nurse prior dressing change. Patient is self turn and reposition and her current Cedric score is 17. Patient is three days s/p amputation of R 4th toe. Removed R foot wound vac dressing. Patient's R dorsal foot wound measuring 8.5x3x1.2cm. Wound is red with visible tendon, minimal serosanguineous drainage noted. 25 mL serosanguineous drainage noted in canister. There's maceration to dorsal aspect of R foot wound and multi partial thickness wound. R foot has mild edema and shiny. Cleansed R foot wound with wound cleanser, patted dry with sterile gauze. Applied skin protectant to juanita wound. Covered juanita wound with transparent drape run along anterior lower leg for bridging. Applied one small piece of white foam to protect tendon. Packed wound cavity with one piece granu foam dressing, run over transparent drape to lower anterior leg. Placed trac pad over hole, connect tubings and run wound vac as order 125 mmHg continuos. Good suction noted with good seal, no leak detected. Patient tolerated well. New photograph of wound taken for reference. Patient's family at bedside. RECOMMENDATION: Continuation of all wound care order prescribed by MD, continue with skin/wound plan of care, continue monitoring by wound care while patient is hospitalized. Addendum: 10/23/18 at 1613 by Krystina Sanchez RN Amended: Links added.
--- NOTE | 2018-10-23 13:11 | NUR ---
PHONE CALL MADE TO DR RICO OFFICE TO INQUIRE ABOUT PATIENT COMING TO THEIR OFFICE FOR WOUND CARE. DR. RICO IS OUT OF STATE UNTIL NEXT WEEK. HIS OFFICE WILL TRY AND GET IN TOUCH WITH HIM. MESSAGE ALSO LEFT WITH REGGIE AT [facility] TO INQUIRE ABOUT OUTPATIENT WOUND CARE AND IF IT IS A COVERED BENEFIT.
[2018-10-23 17:00] VITALS: BP 167/104
--- NOTE | 2018-10-23 17:08 | NUR ---
assessment Patient is a 48 year old female who is Azerbaijani speaking. Patients Manual is at bedside translating for us. Patients cognitive abilities are intact. Prior to admission patient lived home with family and functioned with assistance from her . Per patient she will return home to her prior living arrangements post discharge and family will transport her home. Patient has a wheelchair for home use. Patients PCP is Dr Seo. Patient has been advised to call [employer] at [phone] for her deductible and copay amounts. Patients Manual informed me he will call and let me know what to do about patients IV ABX and home health. I informed patient she has a right to speak to a social media project manager regarding all care. I informed patient she has a right to participate in any and all discharge planning. Patient is aware of visiting hours on the hospital floor. I informed patient she has a right to privacy. Patient does not have a POA and advanced directive. I have offered patient information on POA and advanced directives. I informed the patient the advantages and benefits of having an Advanced Directive. Patient verbalized understanding and agreed to discharge plan. Addendum: 10/23/18 at 1712 by Justyna CASTELLANOS Amended: Links added.
[2018-10-23 21:55] VITALS: BP 143/86
[2018-10-24 05:41] LABS: BUN/Creatinine Ratio 28.7; Calcium 9.2 mg/dL (8.5-10.1)
[2018-10-24] MEDS: InsuLIN REG 1unit/0.01ml Soln (100units/ml) SC SCH ×4 (06:02→21:29)
[2018-10-24] MEDS: ACCU-CHEK COMFORT CURVE STRIP VI SCH ×4 (06:03→21:29)
[2018-10-24] MEDS: INSULIN NPH Isophane (HUMAN) 1unit/0.01ml Susp(100units/ml) SC SCH ×2 (06:03→18:16)
[2018-10-24 06:18] VITALS: BP 122/82
[2018-10-24] MEDS: MORPHINE SULFATE 4 MG/ML SYR/VIAL IV PRN ×2 (06:30→10:38)
--- NOTE | 2018-10-24 07:00 | NUR ---
PATIENT RESTING IN BED. ALERT AND ORIENTED. PAIN MED ADMINISTERED AT 0630 FOR 9/10 LEFT TOE PAIN S/P AMPUTATION. REASSESSED AND PAIN MUCH MORE TOLERABLE. PATIENT NOW COMFORTABLE. BED IN LOWEST LOCKED POSITION AND CALL SALAS W/IN REACH. CARE ENDORSED TO DAY SHIFT RN.
--- NOTE | 2018-10-24 07:15 | NUR ---
hift note: Received report from night NIRMAL Johnson. Pt resting in bed, bed locked, rails up x 2, in low position, call light in reach.
[2018-10-24 09:00] VITALS: BP 126/85
[2018-10-24] MEDS: HYDROcodone-ACET 5/325MG TAB PO PRN ×2 (09:01→18:27)
[2018-10-24] MEDS: Pro-Stat SF 30ml Vanilla PO SCH ×2 (10:00→21:28)
[2018-10-24] MEDS: FLUCONAZOLE 200MG/100ML 100 ML IV SCH (10:34)
[2018-10-24] MEDS: MULTIPLE VITAMINS W/ MINERALS TAB PO SCH ×2 (10:34→21:28)
[2018-10-24] MEDS: ENOXAPARIN SOD 40 MG/0.4 ML SYRINGE SC SCH (10:35)
[2018-10-24] MEDS: ASCORBIC ACID 500 MG TAB PO SCH ×2 (10:35→21:28)
[2018-10-24] MEDS: LISINOPRIL 5 MG TAB PO SCH (10:36)
[2018-10-24] MEDS: SODIUM CHLOR 0.9% PF (SALINE LOCK) 10ML VIAL/SYR IV SCH ×2 (10:37→21:57)
--- NOTE | 2018-10-24 12:06 | NUR ---
WOUND CARE NOTE: Wound care in for daily monitoring of wound vac functioning. Patient's L Foot wound vac dressing remain intact and attached to Info Vac, functioning well at 125 mmHg continuos as MD ordered. Good seal noted, no leak detected. 25 mL serosanguineous drainage noted in canister, will continue to monitor. Patient's not at bedside at this time.
[2018-10-24] MEDS: CEFTRIAXONE SODIUM 2 GM in D5W 5% 50 ML IV SCH (12:13)
[2018-10-24 13:00] VITALS: BP 125/83
--- NOTE | 2018-10-24 14:15 | NUR ---
SPOKE WITH CALIBRATION CHECKER AT [place] TO INQUIRE ABOUT PATIENT GOING TO URGENT CARE TO RECEIVE IV ANTIBIOTICS WHEN DISCHARGED. PHONE NUMBER [phone]. THEY WILL RESEARCH WHAT URGENT CARE SHE CAN USE AND CALL BACK WITH INFORMATION.
--- NOTE | 2018-10-24 14:36 | NUR ---
WOUND CARE NOTE: Noted wound consult to teach patient's wound dressing change for wound vac. Patient's L foot wound vac dressing was changed yesterday at presence of patient's . Teaching given verbally and by demonstration and explaining the NPWT. Informed patient's nurse, RN Linnette to call wound care if patient's at bedside; if needs another teaching or wants another teaching before discharge or next dressing change.
[2018-10-24 17:00] VITALS: BP 162/99
--- NOTE | 2018-10-24 19:10 | NUR ---
ASSUMED CARE, PT. AWAKE, BERMUDIAN SPEAKING ONLY, NO C/O PAIN, NO SOB.
[2018-10-24 22:00] VITALS: BP 133/83
[2018-10-25 05:00] VITALS: BP 144/83
[2018-10-25] MEDS: INSULIN NPH Isophane (HUMAN) 1unit/0.01ml Susp(100units/ml) SC SCH ×2 (06:12→17:00)
[2018-10-25] MEDS: ACCU-CHEK COMFORT CURVE STRIP VI SCH ×4 (06:12→21:26)
[2018-10-25] MEDS: InsuLIN REG 1unit/0.01ml Soln (100units/ml) SC SCH ×4 (06:12→21:25)
[2018-10-25 09:00] VITALS: BP 124/78
[2018-10-25] MEDS: SODIUM CHLOR 0.9% PF (SALINE LOCK) 10ML VIAL/SYR IV SCH ×2 (09:19→22:09)
[2018-10-25] MEDS: MULTIPLE VITAMINS W/ MINERALS TAB PO SCH ×2 (09:19→21:20)
[2018-10-25] MEDS: FLUCONAZOLE 100 MG TAB PO SCH (09:19)
[2018-10-25] MEDS: ASCORBIC ACID 500 MG TAB PO SCH ×2 (09:20→21:20)
[2018-10-25] MEDS: Pro-Stat SF 30ml Vanilla PO SCH ×2 (09:20→21:20)
[2018-10-25] MEDS: ENOXAPARIN SOD 40 MG/0.4 ML SYRINGE SC SCH (09:21)
[2018-10-25] MEDS: LISINOPRIL 5 MG TAB PO SCH (09:21)
[2018-10-25] MEDS: HYDROcodone-ACET 5/325MG TAB PO PRN ×2 (09:22→21:21)
--- NOTE | 2018-10-25 10:45 | NUR ---
WOUND CARE NOTE: Wound care in for daily monitoring of wound vac functioning. Patient's L Foot wound vac dressing remain intact and tubings are connected to Info Vac which is functioning well at 125 mmHg continuos as MD ordered. Good seal noted, no leak detected. Serosanguineous drainage noted in canister not passing the disha of 50mL, will continue to monitor. Attempted to teach patient's for wound care, wound vac dressing change but he states that after seeing the dressing application the other day make him doubt if he's able to do it as he is half blind and his hands are shaky. He added that he's willing to do it but not sure if he can. RN Linnette at bedside. DR. Guillory made aware.
--- NOTE | 2018-10-25 10:48 | NUR ---
WOUND CARE THE PATIENT'S SAYS HE IS HALF-BLIND AND HIS HANDS ARE SHAKY, MAKING HIM UNABLE TO DO ANY WOUND VAC CARE. WOUND NURSE IN THE ROOM HEARING THE SAME.
[2018-10-25] MEDS: CEFTRIAXONE SODIUM 2 GM in D5W 5% 50 ML IV SCH (12:06)
[2018-10-25 13:00] VITALS: BP 127/74
--- NOTE | 2018-10-25 13:09 | NUR ---
REPORT REPORT ENDORSED TO NIRMAL SALAS WHO WILL BE TAKING OVER FROM THIS TIME.
--- NOTE | 2018-10-25 15:41 | NUR ---
WOUND CULTURES HAVE BEEN COMPLETED 10/20/18 IT WAS STILL PENDING ORDER HOWEVER ITS BEEN COMPLETED THE DAY OF PROCEDURE WITH MD RICO
[2018-10-25 17:00] VITALS: BP 159/92
[2018-10-25] MEDS: MORPHINE SULFATE 4 MG/ML SYR/VIAL IV PRN ×2 (17:11→22:09)
--- NOTE | 2018-10-25 19:25 | NUR ---
OPENING SHIFT NOTE ASSUMED CARE OF PATIENT FROM DAY SHIFT RN JOSUE. PATIENT IS AWAKE, ALERT, AND SITTING UP IN BED RELAXED WITH EVEN AND UNLABORED RESPIRATIONS. FAMILY IS AT BEDSIDE. BED IS LOW, LOCKED, CALL LIGHT IN REACH, SIDE RAILS UP X2 AND NONSKID SOCKS ON RIGHT FOOT AND WOUND VAC TO LEFT FOOT. INSTRUCTED ON POC AND TO CALL FOR ASSIST PRN. WILL CONTINUE TO MONITOR.
[2018-10-26 05:28] VITALS: BP 121/82
[2018-10-26] MEDS ORDERED: THYR90TA PO (06:56)
[2018-10-26] MEDS ORDERED: SERT-274 PO (06:56)
[2018-10-26] MEDS ORDERED: FOLI1TAB6 PO (07:09)
[2018-10-26] MEDS ORDERED: FAMO-12 PO (07:09)
[2018-10-26] MEDS ORDERED: ONDA-155 PO (07:09)
[2018-10-26] MEDS ORDERED: FAMO20IN2 IV (07:09)
[2018-10-26] MEDS ORDERED: ATOR10TA52 PO (07:09)
[2018-10-26] MEDS ORDERED: FERR-20 PO (07:09)
[2018-10-26] MEDS ORDERED: ALLO100T PO (07:09)
[2018-10-26] MEDS ORDERED: RANI1TAB6 PO (07:09)
--- NOTE | 2018-10-26 07:10 | NUR ---
OPENING SHIFT NOTE Received report from night RN Sushma. Pt resting in bed, bed in low pos., locked, rails up x2, call massey in reach. Denies any pain.
[2018-10-26] MEDS: ACCU-CHEK COMFORT CURVE STRIP VI SCH ×4 (07:11→22:16)
[2018-10-26] MEDS: InsuLIN REG 1unit/0.01ml Soln (100units/ml) SC SCH ×4 (07:11→22:00)
[2018-10-26] MEDS: INSULIN NPH Isophane (HUMAN) 1unit/0.01ml Susp(100units/ml) SC SCH ×2 (07:15→18:16)
--- NOTE | 2018-10-26 07:19 | NUR ---
OPENING SHIFT NOTE TRANSFERRED CARE TO DAY SHIFT RN. PATIENT IS AWAKE, ALERT, AND SITTING UP IN BED RELAXED WITH EVEN AND UNLABORED RESPIRATIONS. BED IS LOW, LOCKED, CALL LIGHT IN REACH, SIDE RAILS UP X2 AND NONSKID SOCKS ON RIGHT FOOT AND WOUND VAC TO LEFT FOOT. Addendum: 10/26/18 at 0724 by PATI PALUMBO RN RN CLOSING SHIFT NOTE
[2018-10-26 08:49] VITALS: BP 114/80
[2018-10-26] MEDS: MULTIPLE VITAMINS W/ MINERALS TAB PO SCH ×2 (09:51→22:12)
[2018-10-26] MEDS: HYDROcodone-ACET 5/325MG TAB PO PRN ×2 (09:52→18:15)
[2018-10-26] MEDS: ASCORBIC ACID 500 MG TAB PO SCH ×2 (09:52→22:12)
[2018-10-26] MEDS: FLUCONAZOLE 100 MG TAB PO SCH (09:52)
[2018-10-26] MEDS: LISINOPRIL 5 MG TAB PO SCH (09:53)
[2018-10-26] MEDS: ENOXAPARIN SOD 40 MG/0.4 ML SYRINGE SC SCH (09:54)
[2018-10-26] MEDS: Pro-Stat SF 30ml Vanilla PO SCH ×2 (09:54→22:16)
[2018-10-26] MEDS: CEFTRIAXONE SODIUM 2 GM in D5W 5% 50 ML IV SCH (10:11)
[2018-10-26] MEDS: SODIUM CHLOR 0.9% PF (SALINE LOCK) 10ML VIAL/SYR IV SCH ×2 (10:12→22:16)
--- NOTE | 2018-10-26 10:14 | NUR ---
PICC CARE PICC Dressing change done. good blood return to the single port.
--- NOTE | 2018-10-26 11:56 | NUR ---
WOUND CARE NOTE: Wound care in to see patient to change R foot wound vac dressing. Patient continue resting in bed in Rm 286A. She's premedicated for pain by her bedside nurse prior dressing change. Patient is self turn and reposition and her current Cedric score is 15. Patient is six days s/p amputation of R 4th toe b y Dr. Marley. Patient's at bedside. Removed patient's R foot wound vac dressing. Patient's R dorsal foot wound measuring 8 x3x1.2cm. Wound is red with visible tendon, minimal serosanguineous drainage noted. There's multi partial thickness wound to proximal aspect of L dorsal foot. Cleansed R foot wound with wound cleanser, patted dry with sterile gauze. Applied skin protectant to juanita wound. Applied adaptic gauze to exposed tendon protect. Packed wound cavity with one piece granu foam dressing. Placed trac pad over hole and connected tubings. Run wound vac as ordered at 125 mmHg continuos. Good seal noted with good suction , no leak detected. Patient tolerated well. New photograph of wound taken for reference. Canister has over 25 mL serosanguineous drainage but not passed the 50mL disha. Patient and family wound care education given. Allowed patient's to help with wound care. Patient's states "There is no way I can do that". Patient tolerated dressing change well. RECOMMENDATION: Continuation of all wound care order prescribed by MD, continue with skin/wound plan of care, continue monitoring by wound care while patient is hospitalized. Addendum: 10/26/18 at 1808 by Krystina Sanchez RN Amended: Links added.
[2018-10-26] MEDS: MORPHINE SULFATE 4 MG/ML SYR/VIAL IV PRN ×2 (12:21→19:51)
[2018-10-26 13:00] VITALS: BP 148/91
[2018-10-26 17:00] VITALS: BP 120/78
--- NOTE | 2018-10-26 19:05 | NUR ---
SHIFT REPORT Endorsed report to night NIRMAL KRUEGER. Pt in bed resting, bed in low pos., locked, rails up x 2, call light in reach. at [id number]. No distress noted.
--- NOTE | 2018-10-26 19:25 | NUR ---
OPENING SHIFT NOTE ASSUMED CARE OF PATIENT FROM DAY SHIFT RN DAVE. PATIENT IS AWAKE, ALERT, AND SITTING UP IN BED RELAXED WITH EVEN AND UNLABORED RESPIRATIONS. FAMILY IS AT BEDSIDE. BED IS LOW, LOCKED, CALL LIGHT IN REACH, SIDE RAILS UP X2 AND NONSKID SOCKS ON RIGHT FOOT AND WOUND VAC TO LEFT FOOT. INSTRUCTED ON POC AND TO CALL FOR ASSIST PRN. WILL CONTINUE TO MONITOR.
[2018-10-26 22:00] VITALS: BP 125/84
[2018-10-27] MEDS: MORPHINE SULFATE 4 MG/ML SYR/VIAL IV PRN ×3 (05:00→18:04)
[2018-10-27 05:39] VITALS: BP 97/68
[2018-10-27] MEDS: InsuLIN REG 1unit/0.01ml Soln (100units/ml) SC SCH ×4 (06:35→21:55)
[2018-10-27] MEDS: ACCU-CHEK COMFORT CURVE STRIP VI SCH ×4 (07:08→21:47)
[2018-10-27] MEDS: INSULIN NPH Isophane (HUMAN) 1unit/0.01ml Susp(100units/ml) SC SCH ×2 (07:08→18:03)
--- NOTE | 2018-10-27 07:12 | NUR ---
CLOSING SHIFT NOTE TRANSFERRED CARE TO DAY SHIFT RN. PATIENT IS AWAKE, ALERT, AND SITTING UP IN BED RELAXED WITH EVEN AND UNLABORED RESPIRATIONS. BED IS LOW, LOCKED, CALL LIGHT IN REACH, SIDE RAILS UP X2 AND NONSKID SOCKS ON RIGHT FOOT AND WOUND VAC TO LEFT FOOT.
--- NOTE | 2018-10-27 08:00 | NUR ---
RECEIVED PT RESTING IN BED, CALL LIGHT WITHIN REACH, PT DENIES ANY PAIN OR DISCOMFORT AT THIS TIME, WOUND VAC ON LT FOOD, NO LEAK NOTICED, WILL CONTINUE TO MONITOR PT.
[2018-10-27 09:00] VITALS: BP 118/79
[2018-10-27] MEDS: SODIUM CHLOR 0.9% PF (SALINE LOCK) 10ML VIAL/SYR IV SCH ×2 (09:08→21:47)
[2018-10-27] MEDS: FLUCONAZOLE 100 MG TAB PO SCH (09:08)
[2018-10-27] MEDS: CEFTRIAXONE SODIUM 2 GM in D5W 5% 50 ML IV SCH (09:08)
[2018-10-27] MEDS: ENOXAPARIN SOD 40 MG/0.4 ML SYRINGE SC SCH (09:09)
[2018-10-27] MEDS: MULTIPLE VITAMINS W/ MINERALS TAB PO SCH ×2 (09:09→21:46)
[2018-10-27] MEDS: Pro-Stat SF 30ml Vanilla PO SCH ×2 (09:09→21:47)
[2018-10-27] MEDS: LISINOPRIL 5 MG TAB PO SCH (09:09)
[2018-10-27] MEDS: ASCORBIC ACID 500 MG TAB PO SCH ×2 (09:09→21:46)
--- NOTE | 2018-10-27 10:58 | NUR ---
WOUND CARE NOTE: Wound care in for daily monitoring of wound vac functioning. Patient is resting in bed in Rm. 286A. She's awake, alert and oriented. She's in no stated pain at this time. Patient's L Foot wound vac dressing remain intact and attached to Info Vac, functioning well at 125 mmHg continuos as MD ordered. Good seal noted, no leak detected. About 50 mL serosanguineous drainage noted in canister, will continue to monitor.
[2018-10-27] MEDS ORDERED: LISI-275 PO (12:05)
[2018-10-27] MEDS ORDERED: ASCO500T11 PO (12:05)
[2018-10-27 13:00] VITALS: BP 138/89
--- NOTE | 2018-10-27 14:22 | NUR ---
SPOKE WITH [place] AT [facility] (DR. AQUILES HADDAD [phone]) PER D[place] PATIENT NEEDS TO FOLLOW UP WITH THEIR OFFICE TO BE SET UP WITH A WOUND CARE CLINIC POST DISCHARGE. APPOINTMENT WAS MADE FOR SaturdayOCTOBER 29 AT 10:45AM. DR FRANK ADVISED OF DISCHARGE PLAN AND WILL DISCHARGE PATIENT 10-28-18.
[2018-10-27 17:00] VITALS: BP 135/84
--- NOTE | 2018-10-27 19:20 | NUR ---
Opening Shift Note Received report from Nancy KINNEY. Assumed care of patient, awake and alert, sitting on the bed. No S/S of distress/SOB or pain. Left foot wound dressing c/d/i and connected to wound vac functioning well. Instructed on POC and to call for assist PRN, will continue to monitor for changes Q1hr and PRN.
[2018-10-27 22:00] VITALS: BP 153/95
[2018-10-27] MEDS ORDERED: ATORVASTATIN 20 MG TAB PO SCH (22:00)
[2018-10-28 05:19] VITALS: BP 143/91
[2018-10-28] MEDS: ACCU-CHEK COMFORT CURVE STRIP VI SCH ×3 (06:47→16:47)
[2018-10-28] MEDS: InsuLIN REG 1unit/0.01ml Soln (100units/ml) SC SCH ×3 (06:48→16:47)
[2018-10-28] MEDS: INSULIN NPH Isophane (HUMAN) 1unit/0.01ml Susp(100units/ml) SC SCH (06:49)
[2018-10-28] MEDS: MORPHINE SULFATE 4 MG/ML SYR/VIAL IV PRN ×2 (06:49→14:54)
--- NOTE | 2018-10-28 07:20 | NUR ---
Patient still with moderate L foot pain. Requesting for stool softener. Endorsed care to Fannie KINNEY.
[2018-10-28 08:00] VITALS: BP 111/78
[2018-10-28 09:00] VITALS: BP 111/78
[2018-10-28] MEDS: HYDROcodone-ACET 5/325MG TAB PO PRN (09:04)
[2018-10-28] MEDS ORDERED: FLUC100T34 PO (09:31)
[2018-10-28] MEDS ORDERED: AMPI500C8 PO (09:31)
[2018-10-28] MEDS: LISINOPRIL 5 MG TAB PO SCH (10:00)
[2018-10-28] MEDS: MULTIPLE VITAMINS W/ MINERALS TAB PO SCH (10:15)
[2018-10-28] MEDS: CEFTRIAXONE SODIUM 2 GM in D5W 5% 50 ML IV SCH (10:15)
[2018-10-28] MEDS: FLUCONAZOLE 100 MG TAB PO SCH (10:15)
[2018-10-28] MEDS: ASCORBIC ACID 500 MG TAB PO SCH (10:15)
[2018-10-28] MEDS: ENOXAPARIN SOD 40 MG/0.4 ML SYRINGE SC SCH (10:17)
[2018-10-28] MEDS: SODIUM CHLOR 0.9% PF (SALINE LOCK) 10ML VIAL/SYR IV SCH (10:22)
[2018-10-28] MEDS: Pro-Stat SF 30ml Vanilla PO SCH (10:22)
[2018-10-28 12:28] VITALS: BP 128/85
[2018-10-28 12:45] VITALS: BP 128/85
--- NOTE | 2018-10-28 16:00 | NUR ---
WOUND CARE NOTE: Patient's daughter at bedside for education regarding wound vacc and dressing changes while at home. Patient is to be discharged today and daughter states she will be helping manage wound vacc for her mother. Previous wound care nurse, Krystina, attempted to teach patient's , but he stated that it was too much for him. Went over all supplies provided by [facility] with daughter, to include home vacc, carrying pouch, AC adapter and cord, white and black foam, canisters and extra drape. Daughter verbalized understand and didn't have any questions. Educated on basics of dressing changes and frequency as well as therapy settings. Photographs taken on 10/26/18 with last dressing change.
--- NOTE | 2018-10-28 16:45 | NUR ---
LAUREL KINNEYBANKRUPTCY LAW SPECIALIST NURSE AT BEDSIDE TEACHING WOUND VAC CARE. PATIENTS DAUGHTER VERBALIZED UNDERSTANDING OF THE TEACHING. NO PHOTOS TAKEN AT THIS TIME WOUND PICTURES WERE TAKEN ON LAST WOUND VAC CHANGE ON 10/26/18 WOUND VAC TO BE CHANGED EVERY 3 DAYS. PER LAUREL KINNEY SHE IS AWARE AND WILL DOCUMENT ON PHOTOS.
[2018-10-28 17:00] VITALS: BP 155/97
--- NOTE | 2018-10-28 17:56 | NUR ---
Discharge instructions given as ordered. Encourage to follow up with PMD as instructed. All questions and concerns addressed. Patient verbalized understanding. Medication reconciliation form completed and copy given to patient. No Home medications held in Pharmacy and none to be returned to patient, and no needed vaccines given. PICC line removed with catheter intact, pressure dressing applied. Patient taken to vehicle via wheelchair with all personal belongings, accompanied by staff and family member. No distress noted at time of departure, patient went with wound vac attached, and all prescriptions.
== END 2018-10-28 18:25 | disposition home or self-care (01) | DRG 853 ==
LOC: ER 11:41 → OVERFLOW 17:28 → WEST WING 21:41
PROVIDERS: ADMIT Nurse Practitioner Acute Care; ATTEND Internal Medicine
PROC: 02HV33Z Insertion of Infusion Device into Superior Vena Cava, Percutaneous Approach (ICD-10-PCS; 2018-10-17)
PROC: 0Y6N0ZD Detachment at Left Foot, Partial 4th Ray, Open Approach (ICD-10-PCS; 2018-10-20)
PROC: 0Y6W0Z0 Detachment at Left 4th Toe, Complete, Open Approach (ICD-10-PCS; principal; 2018-10-20 09:20)
DX: A41.9 Sepsis, unspecified organism (principal); E43 Unspecified severe protein-calorie malnutrition; E11.52 Type 2 diabetes mellitus with diabetic peripheral angiopathy with gangrene; E87.1 Hypo-osmolality and hyponatremia; L03.116 Cellulitis of left lower limb; M86.8X7 Other osteomyelitis, ankle and foot; E11.65 Type 2 diabetes mellitus with hyperglycemia; E11.69 Type 2 diabetes mellitus with other specified complication; E78.5 Hyperlipidemia, unspecified; E83.42 Hypomagnesemia; I10 Essential (primary) hypertension; Z79.4 Long term (current) use of insulin; Z82.49 Family history of ischemic heart disease and other diseases of the circulatory system; Z90.710 Acquired absence of both cervix and uterus; Z68.22 Body mass index [BMI] 22.0-22.9, adult
CPT/HCPCS: 36415; 36569; 71045; 73700; 73718; 80048; 80053; 80061; 80202; 81001; 82962; 83036; 83605; 83735; 84443; 84702; 85025; 85610; 85652; 85730; 86850; 86900; 86901; 87040; 87205; 93005; 93926; 94761; 96361; 96365; 96367; 96375; 97116; 97530; A6257; G0378; J0690; J0696; J1450; J1815; J2250; J2405; J2543; J2704; J3490; J7060

== ENCOUNTER 2022-04-12 21:37 | Inpatient (IN) | payer MEDICAID, OTHER ==
[~2022-04-12] VITALS: Ht 167.6 cm; Wt 55.6 kg
[~2022-04-12 21:37] MED LIST: AMPI500C8 PO; ASCO500T11 PO; ATOR10TA52 PO; FAMO-12 PO; FERR-20 PO; FLUC100T34 PO; FOLI1TAB6 PO; LISI-275 PO; SERT50TA19 PO; THYR90TA PO
[2022-04-12] MEDS ORDERED: ALBUTEROL SULF 2.5 MG/0.5ML(0.5%) NEB SOLN NEB ONE (22:30)
[2022-04-12] MEDS ORDERED: IPRATROPIUM BROM 0.5 MG/2.5ML INH SOL NEB ONE (22:30)
[2022-04-12] MEDS ORDERED: ASPirin 325 MG TAB PO ONE (22:30)
[2022-04-12 22:49] LABS: Basophils # (auto) 0.1 10 ^3/uL (0-0.2); Basophils % (auto) 1.2 % (0.0-2.0); Eosinophils # (auto) 0.2 10 ^3/uL (0-0.8); Eosinophils % (auto) 2.9 % (0.0-7.0); Hematocrit 31.4 % (36.0-46.0); Hemoglobin 9.9 g/dL (12.2-16.2); Lymphocytes # (auto) 1.4 10 ^3/uL (0.4-5.4); Lymphocytes % (auto) 23.3 % (10.0-50.0); Mean Corpuscular Hgb Conc. 31.5 g/dL (32.0-36.0); Mean Corpuscular Volume 98.1 fL (80.0-100.0); Monocytes # (auto) 0.5 10 ^3/uL (0-1.3); Monocytes % (auto) 8.2 % (0.0-12.0); Neutrophils # (auto) 3.9 10 ^3/uL (1.6-8.6); Neutrophils % (auto) 64.4 % (37.0-80.0); Nucleated Red Blood Cells % 0.4 %; Red Cell Distribution Width 15.1 % (11.8-14.3); White Blood Cell 6.1 10^3/uL (4.4-10.8)
[2022-04-12 23:08] LABS: Albumin 2.5 g/dL (3.4-5.0); Calcium 7.8 mg/dL (8.5-10.1); Magnesium 2.4 mg/dL (1.6-2.6); Potassium 4.4 mmol/L (3.5-5.1)
[2022-04-12 23:10] LABS: BUN/Creatinine Ratio 10.1
[2022-04-12 23:13] LABS: Bilirubin, Total 0.2 mg/dL (0.2-1.0); Total Protein 6.6 g/dL (6.4-8.2)
[2022-04-13] VITALS (22 sets, daily range): BP systolic 81–184; BP diastolic 54–100
[2022-04-13] MEDS ORDERED: cefTRIAXone 1GM/50ML D5W 50 ML IV ONE ×2 (01:00→13:00)
[2022-04-13] MEDS ORDERED: SODIUM CHLORIDE 0.9% 1,000 ML IV ONE (01:00)
[2022-04-13] MEDS ORDERED: AZITHROMYCIN 500MG/ 250ML 250 ML IV ONE (01:00)
[2022-04-13 01:22] LABS: INR 0.98 (0.9-1.15); Partial Thromboplastin Time 30.2 sec (24.6-33.4)
[2022-04-13] MEDS ORDERED: HEPARIN SODIUM (PORCINE) 5000 UNITS/ML 1ML VIAL IV ONE ×2 (01:45→21:00)
[2022-04-13] MEDS: HEPARIN DRIP/D5W 100UNITS/ML 250 ML IV SCH ×2 (02:15→06:53)
[2022-04-13] MEDS ORDERED: ALBUMIN 25% 100 ML IV ONE (04:30)
[2022-04-13] MEDS ORDERED: FUROSEMIDE 40 MG/4 ML VIAL IV ONE (04:30)
[2022-04-13] MEDS ORDERED: DEXTROSE (50%) 50ML SYRG IV PRN (04:30)
[2022-04-13] MEDS ORDERED: DOCUSATE SOD 100 MG CAP PO PRN (04:30)
[2022-04-13 05:02] LABS: Basophils # (auto) 0.1 10 ^3/uL (0-0.2); Basophils % (auto) 0.7 % (0.0-2.0); Eosinophils # (auto) 0.1 10 ^3/uL (0-0.8); Eosinophils % (auto) 1.4 % (0.0-7.0); Hematocrit 27.6 % (36.0-46.0); Hemoglobin 9.1 g/dL (12.2-16.2); Lymphocytes # (auto) 1.3 10 ^3/uL (0.4-5.4); Lymphocytes % (auto) 16.1 % (10.0-50.0); Mean Corpuscular Hemoglobin 32.2 pg (28.0-32.0); Mean Corpuscular Hgb Conc. 32.8 g/dL (32.0-36.0); Mean Corpuscular Volume 98.2 fL (80.0-100.0); Monocytes # (auto) 0.8 10 ^3/uL (0-1.3); Monocytes % (auto) 9.9 % (0.0-12.0); Neutrophils % (auto) 71.9 % (37.0-80.0); Nucleated Red Blood Cells % 0.5 %; Red Blood Cells 2.82 10^6/uL (4.0-5.20); Red Cell Distribution Width 15.3 % (11.8-14.3); White Blood Cell 8.3 10^3/uL (4.4-10.8)
[2022-04-13 05:17] LABS: Albumin 2.3 g/dL (3.4-5.0); Calcium 7.4 mg/dL (8.5-10.1); Potassium 4.3 mmol/L (3.5-5.1)
[2022-04-13 05:20] LABS: Bilirubin, Total 0.1 mg/dL (0.2-1.0); Total Protein 5.9 g/dL (6.4-8.2)
[2022-04-13 05:24] LABS: INR 1.03 (0.9-1.15)
[2022-04-13] MEDS ORDERED: MORPHINE SULFATE INJ 2 MG/ml SYRG IV PRN (05:30)
[2022-04-13] MEDS ORDERED: NITROGLYCERIN 0.4 MG SL TAB SL PRN (05:30)
[2022-04-13 05:43] LABS: Partial Thromboplastin Time 90.5 sec (24.6-33.4)
[2022-04-13] MEDS: SODIUM CHLOR 0.9% PF (SALINE LOCK) 10ML VIAL/SYR IV SCH ×3 (06:03→22:28)
[2022-04-13] MEDS: ACCU-CHEK COMFORT CURVE STRIP VI SCH ×4 (06:58→22:30)
[2022-04-13] MEDS: InsuLIN REG 1unit/0.01ml Soln (100units/ml) SC SCH ×4 (06:59→22:00)
[2022-04-13] MEDS: FAMOTIDINE (10MG/ML) 2ML VL IV SCH (11:18)
[2022-04-13] MEDS: FUROSEMIDE 40 MG/4 ML VIAL IV SCH (11:18)
[2022-04-13] MEDS: AZITHROMYCIN 500MG/ 250ML 250 ML IV SCH (11:19)
[2022-04-13] MEDS: ASPirin 81 mg TAB PO SCH (11:19)
[2022-04-13] MEDS: MULTIPLE VITAMIN TAB PO SCH (11:20)
[2022-04-13] MEDS: MORPHINE SULFATE INJ 2 MG/ml SYRG IV PRN (12:00)
[2022-04-13] MEDS: ONDANSETRON HCL 4 MG/2 ML VIAL IV PRN (14:13)
[2022-04-13] MEDS ORDERED: fentaNYL Drip 2500mCg/250mlNS 250 ML IV ONE (19:19)
[2022-04-13] MEDS ORDERED: MIDAZOLAM DRIP 50 mg/50mL 50 ML IV ONE (19:19)
[2022-04-13 19:50] LABS: INR 0.97 (0.9-1.15); Partial Thromboplastin Time 34.9 sec (24.6-33.4)
[2022-04-13 21:02] LABS: Eosinophils # (auto) 0.1 10 ^3/uL (0-0.8); Hemoglobin 8.2 g/dL (12.2-16.2); Lymphocytes # (auto) 0.8 10 ^3/uL (0.4-5.4); Lymphocytes % (auto) 7.7 % (10.0-50.0); Monocytes # (auto) 0.5 10 ^3/uL (0-1.3); Nucleated Red Blood Cells % 0.8 %
[2022-04-13 21:04] LABS: Basophils # (auto) 0 10 ^3/uL (0-0.2); Basophils % (auto) 0.3 % (0.0-2.0); Eosinophils % (auto) 1.4 % (0.0-7.0); Hematocrit 26.6 % (36.0-46.0); Mean Corpuscular Hemoglobin 30.9 pg (28.0-32.0); Mean Corpuscular Hgb Conc. 30.9 g/dL (32.0-36.0); Mean Corpuscular Volume 99.9 fL (80.0-100.0); Monocytes % (auto) 5.1 % (0.0-12.0); Neutrophils # (auto) 8.6 10 ^3/uL (1.6-8.6); Neutrophils % (auto) 85.5 % (37.0-80.0); Red Blood Cells 2.66 10^6/uL (4.0-5.20); Red Cell Distribution Width 15.9 % (11.8-14.3)
[2022-04-13] MEDS: NOREPINEPHRINE 8 MG/250ML KIT 250 ML IV SCH (21:20)
[2022-04-13 21:24] LABS: INR 1.01 (0.9-1.15); Partial Thromboplastin Time 32.6 sec (24.6-33.4)
[2022-04-13 21:28] LABS: Albumin 2.5 g/dL (3.4-5.0); Calcium 7.6 mg/dL (8.5-10.1); Potassium 4.4 mmol/L (3.5-5.1)
[2022-04-13 21:32] LABS: BUN/Creatinine Ratio 9.2; Bilirubin, Total 0.4 mg/dL (0.2-1.0)
[2022-04-13] MEDS ORDERED: EPINEPHrine HCL 1 MG/10 ML SYRG IV ONE (21:33)
[2022-04-13] MEDS ORDERED: SODIUM BICARBONATE 8.4 % INJ 50ML VIAL IV ONE ×2 (22:00→22:16)
[2022-04-13] MEDS: SODIUM BICARBONATE 50ML VIAL 150 ML in D5W 5% 1,000 ML IV SCH (22:28)
[2022-04-13] MEDS: ATORVASTATIN 20 MG TAB PO SCH (22:28)
[2022-04-13] MEDS: PROPOFOL 100 ML IV SCH (22:46)
[2022-04-14] VITALS (105 sets, daily range): BP systolic 97–131; BP diastolic 54–88
[2022-04-14] MEDS: MIDAZOLAM DRIP 50 mg/50mL 50 ML IV SCH ×3 (00:59→19:45)
[2022-04-14] MEDS ORDERED: BUMETANIDE INJECTION 10 ML ONE (01:29)
[2022-04-14] MEDS ORDERED: hydrALAZINE HCL 20 MG/ML VL IV PRN (01:30)
[2022-04-14] MEDS ORDERED: BUMETANIDE 2.5mg/10ml (0.25 mg/ml) INJ IV ONE ×2 (01:30→09:00)
[2022-04-14 03:15] LABS: Eosinophils # (auto) 0.1 10 ^3/uL (0-0.8); Eosinophils % (auto) 1.4 % (0.0-7.0); Hemoglobin 7.6 g/dL (12.2-16.2); Lymphocytes # (auto) 1.1 10 ^3/uL (0.4-5.4); Mean Corpuscular Hemoglobin 31.7 pg (28.0-32.0); Neutrophils % (auto) 74.1 % (37.0-80.0); Red Blood Cells 2.38 10^6/uL (4.0-5.20)
[2022-04-14 03:17] LABS: Basophils # (auto) 0 10 ^3/uL (0-0.2); Basophils % (auto) 0.7 % (0.0-2.0); Lymphocytes % (auto) 16.6 % (10.0-50.0); Mean Corpuscular Hgb Conc. 31.5 g/dL (32.0-36.0); Mean Corpuscular Volume 100.7 fL (80.0-100.0); Monocytes # (auto) 0.5 10 ^3/uL (0-1.3); Monocytes % (auto) 7.2 % (0.0-12.0); Neutrophils # (auto) 4.9 10 ^3/uL (1.6-8.6); Red Cell Distribution Width 15.6 % (11.8-14.3); White Blood Cell 6.6 10^3/uL (4.4-10.8)
[2022-04-14 03:25] LABS: Albumin 2.3 g/dL (3.4-5.0); BUN/Creatinine Ratio 10.3; Calcium 7.5 mg/dL (8.5-10.1); Phosphorus 5.1 mg/dL (2.5-4.90); Potassium 4.1 mmol/L (3.5-5.1); Uric Acid 8.8 mg/dL (2.6-6.0)
[2022-04-14 03:28] LABS: Bilirubin, Total 0.2 mg/dL (0.2-1.0); Total Protein 5.5 g/dL (6.4-8.2)
[2022-04-14 03:36] LABS: Partial Thromboplastin Time 62.9 sec (24.6-33.4)
[2022-04-14] MEDS: HEPARIN DRIP/D5W 100UNITS/ML 250 ML IV SCH (05:51)
[2022-04-14] MEDS: InsuLIN REG 1unit/0.01ml Soln (100units/ml) SC SCH ×4 (06:59→22:00)
[2022-04-14] MEDS: ACCU-CHEK COMFORT CURVE STRIP VI SCH ×4 (06:59→22:15)
[2022-04-14] MEDS: SODIUM CHLOR 0.9% PF (SALINE LOCK) 10ML VIAL/SYR IV SCH ×3 (06:59→22:15)
[2022-04-14 08:56] LABS: Eosinophils # (auto) 0.2 10 ^3/uL (0-0.8); Hemoglobin 7.8 g/dL (12.2-16.2); Lymphocytes # (auto) 1.8 10 ^3/uL (0.4-5.4); Monocytes # (auto) 0.5 10 ^3/uL (0-1.3); Neutrophils # (auto) 3.5 10 ^3/uL (1.6-8.6); Nucleated Red Blood Cells % 0.9 %; Red Cell Distribution Width 15.1 % (11.8-14.3); White Blood Cell 6.1 10^3/uL (4.4-10.8)
[2022-04-14 08:57] LABS: Basophils # (auto) 0.1 10 ^3/uL (0-0.2); Eosinophils % (auto) 3.8 % (0.0-7.0); Hematocrit 24.1 % (36.0-46.0); Lymphocytes % (auto) 29.6 % (10.0-50.0); Mean Corpuscular Hemoglobin 31.1 pg (28.0-32.0); Mean Corpuscular Hgb Conc. 32.1 g/dL (32.0-36.0); Mean Corpuscular Volume 96.7 fL (80.0-100.0); Monocytes % (auto) 8.4 % (0.0-12.0); Neutrophils % (auto) 57.2 % (37.0-80.0)
[2022-04-14 09:13] LABS: BUN/Creatinine Ratio 9.9; Calcium 7.5 mg/dL (8.5-10.1); Potassium 3.8 mmol/L (3.5-5.1)
[2022-04-14 09:17] LABS: INR 1.02 (0.9-1.15); Partial Thromboplastin Time 42.1 sec (24.6-33.4)
[2022-04-14] MEDS: MULTIPLE VITAMIN TAB PO SCH (09:58)
[2022-04-14] MEDS: ASPirin 81 mg TAB PO SCH (09:58)
[2022-04-14] MEDS: AZITHROMYCIN 500MG/ 250ML 250 ML IV SCH (09:58)
[2022-04-14] MEDS: cefTRIAXone 1GM/50ML D5W 50 ML IV SCH (09:58)
[2022-04-14] MEDS: FAMOTIDINE (10MG/ML) 2ML VL IV SCH (09:59)
[2022-04-14] MEDS: FUROSEMIDE 40 MG/4 ML VIAL IV SCH (09:59)
[2022-04-14] MEDS: PROPOFOL 100 ML IV SCH ×2 (10:09→17:59)
[2022-04-14] MEDS: fentaNYL Drip 2500mCg/250mlNS 250 ML IV SCH ×2 (10:12→19:45)
[2022-04-14] MEDS: SODIUM BICARBONATE 50ML VIAL 150 ML in D5W 5% 1,000 ML IV SCH (12:30)
[2022-04-14 17:07] LABS: Urine Bacteria FEW /hpf (None Seen); Urine Blood TRACE /uL (Negative); Urine Mucus FEW (None Seen); Urine Specific Gravity 1.008 (1.001-1.035); Urine WBC 206 /hpf (0 - 5); Urine WBC Clumps PRESENT /hpf (None Seen)
[2022-04-14 17:27] LABS: Creatinine, Urine 31 mg/dL (30.0-125.0); Sodium Urine 116 mmol/L (40-220)
[2022-04-14] MEDS: NOREPINEPHRINE 8 MG/250ML KIT 250 ML IV SCH (19:45)
[2022-04-14 20:03] LABS: INR 1.05 (0.9-1.15); Partial Thromboplastin Time 44.2 sec (24.6-33.4)
[2022-04-14] MEDS: ATORVASTATIN 20 MG TAB PO SCH (22:15)
[2022-04-15] VITALS (90 sets, daily range): BP systolic 93–158; BP diastolic 65–96
[2022-04-15] MEDS: SODIUM BICARBONATE 50ML VIAL 150 ML in D5W 5% 1,000 ML IV SCH (04:58)
[2022-04-15 05:16] LABS: Basophils # (auto) 0 10 ^3/uL (0-0.2); Basophils % (auto) 0.7 % (0.0-2.0); Eosinophils # (auto) 0.5 10 ^3/uL (0-0.8); Hematocrit 26.4 % (36.0-46.0); Hemoglobin 8.7 g/dL (12.2-16.2); Lymphocytes # (auto) 1.9 10 ^3/uL (0.4-5.4); Lymphocytes % (auto) 25.7 % (10.0-50.0); Mean Corpuscular Hemoglobin 31.6 pg (28.0-32.0); Mean Corpuscular Volume 95.9 fL (80.0-100.0); Monocytes # (auto) 0.7 10 ^3/uL (0-1.3); Neutrophils # (auto) 4.2 10 ^3/uL (1.6-8.6); Neutrophils % (auto) 57.6 % (37.0-80.0); Nucleated Red Blood Cells % 0.6 %; Red Blood Cells 2.75 10^6/uL (4.0-5.20); Red Cell Distribution Width 15.4 % (11.8-14.3); White Blood Cell 7.3 10^3/uL (4.4-10.8)
[2022-04-15 05:28] LABS: BUN/Creatinine Ratio 9.9; Calcium 7.2 mg/dL (8.5-10.1); Potassium 3.5 mmol/L (3.5-5.1)
[2022-04-15] MEDS: SODIUM CHLOR 0.9% PF (SALINE LOCK) 10ML VIAL/SYR IV SCH ×3 (06:10→20:54)
[2022-04-15] MEDS: ACCU-CHEK COMFORT CURVE STRIP VI SCH ×4 (07:00→20:49)
[2022-04-15] MEDS: InsuLIN REG 1unit/0.01ml Soln (100units/ml) SC SCH ×4 (07:00→20:49)
[2022-04-15] MEDS: FAMOTIDINE (10MG/ML) 2ML VL IV SCH (11:57)
[2022-04-15] MEDS: FUROSEMIDE 40 MG/4 ML VIAL IV SCH (11:57)
[2022-04-15] MEDS: AZITHROMYCIN 500MG/ 250ML 250 ML IV SCH (11:57)
[2022-04-15] MEDS: cefTRIAXone 1GM/50ML D5W 50 ML IV SCH (11:57)
[2022-04-15] MEDS: ASPirin 81 mg TAB PO SCH (11:58)
[2022-04-15] MEDS: MULTIPLE VITAMIN TAB PO SCH (11:58)
[2022-04-15 19:29] LABS: INR 1.1 (0.9-1.15)
[2022-04-15 19:34] LABS: Partial Thromboplastin Time 74.5 sec (24.6-33.4)
[2022-04-15] MEDS: MIDAZOLAM DRIP 50 mg/50mL 50 ML IV SCH (19:45)
[2022-04-15] MEDS: fentaNYL Drip 2500mCg/250mlNS 250 ML IV SCH (19:45)
[2022-04-15] MEDS: NOREPINEPHRINE 8 MG/250ML KIT 250 ML IV SCH (19:45)
[2022-04-15] MEDS: PROPOFOL 100 ML IV SCH (19:45)
[2022-04-15] MEDS: ATORVASTATIN 20 MG TAB PO SCH (20:54)
[2022-04-16] VITALS (76 sets, daily range): BP systolic 71–205; BP diastolic 48–120
[2022-04-16] MEDS: HEPARIN DRIP/D5W 100UNITS/ML 250 ML IV SCH (01:15)
[2022-04-16 04:51] LABS: Basophils # (auto) 0 10 ^3/uL (0-0.2); Basophils % (auto) 0.6 % (0.0-2.0); Eosinophils # (auto) 0.5 10 ^3/uL (0-0.8); Eosinophils % (auto) 6.5 % (0.0-7.0); Hematocrit 29.3 % (36.0-46.0); Hemoglobin 9.6 g/dL (12.2-16.2); Lymphocytes # (auto) 1.4 10 ^3/uL (0.4-5.4); Lymphocytes % (auto) 17.9 % (10.0-50.0); Mean Corpuscular Hemoglobin 31.1 pg (28.0-32.0); Mean Corpuscular Hgb Conc. 32.9 g/dL (32.0-36.0); Mean Corpuscular Volume 94.4 fL (80.0-100.0); Monocytes # (auto) 0.7 10 ^3/uL (0-1.3); Monocytes % (auto) 9.7 % (0.0-12.0); Neutrophils % (auto) 65.3 % (37.0-80.0); Nucleated Red Blood Cells % 0.2 %; Red Cell Distribution Width 15.2 % (11.8-14.3); White Blood Cell 7.6 10^3/uL (4.4-10.8)
[2022-04-16 05:07] LABS: Albumin 1.8 g/dL (3.4-5.0); Calcium 7.4 mg/dL (8.5-10.1); Potassium 3.4 mmol/L (3.5-5.1)
[2022-04-16 05:10] LABS: BUN/Creatinine Ratio 9.4; Bilirubin, Total 0.3 mg/dL (0.2-1.0); Total Protein 5.1 g/dL (6.4-8.2)
[2022-04-16] MEDS: InsuLIN REG 1unit/0.01ml Soln (100units/ml) SC SCH ×4 (05:29→22:00)
[2022-04-16] MEDS: SODIUM CHLOR 0.9% PF (SALINE LOCK) 10ML VIAL/SYR IV SCH ×3 (05:29→21:59)
[2022-04-16] MEDS: ACCU-CHEK COMFORT CURVE STRIP VI SCH ×4 (05:30→22:01)
[2022-04-16] MEDS ORDERED: LIDOCAINE 2%HCL (LOCAL ANESTH.) INJ 10ml MDV ONE (07:53)
[2022-04-16] MEDS ORDERED: IODIXANOL 320MG/ML 100ML BTL IV ONE ×2 (07:53→08:36)
[2022-04-16] MEDS ORDERED: ANGIOMAX 250 MG VIAL IV ONE (08:17)
[2022-04-16] MEDS ORDERED: SODIUM CHL 0.9% 50 ML ONE (08:18)
[2022-04-16] MEDS ORDERED: ASPirin 81 mg TAB ONE (08:52)
[2022-04-16] MEDS ORDERED: hydrALAZINE HCL 20 MG/ML VL ONE (08:55)
[2022-04-16] MEDS ORDERED: TICAGRELOR 90 MG TAB ONE (08:55)
[2022-04-16] MEDS: ASPirin 81 mg TAB PO SCH ×2 (09:10→10:00)
[2022-04-16] MEDS: hydrALAZINE HCL 25 MG TAB PO SCH ×2 (10:00→22:00)
[2022-04-16] MEDS: AZITHROMYCIN 500MG/ 250ML 250 ML IV SCH (10:00)
[2022-04-16] MEDS: POTASSIUM CHL 20MEQ/100ML 100 ML IV SCH ×2 (10:18→12:56)
[2022-04-16] MEDS: cefTRIAXone 1GM/50ML D5W 50 ML IV SCH (10:18)
[2022-04-16] MEDS: MULTIPLE VITAMIN TAB PO SCH (10:19)
[2022-04-16] MEDS: FAMOTIDINE (10MG/ML) 2ML VL IV SCH (10:19)
[2022-04-16] MEDS: FUROSEMIDE 40 MG/4 ML VIAL IV SCH (10:19)
[2022-04-16] MEDS: CARVEDILOL 3.125 MG TAB PO SCH ×2 (10:20→22:00)
[2022-04-16] MEDS: CALCIUM ACETATE 667 MG CAP NG SCH ×2 (15:23→21:59)
[2022-04-16] MEDS: TICAGRELOR 90 MG TAB PO SCH ×2 (18:44→22:03)
[2022-04-16] MEDS: MIDAZOLAM DRIP 50 mg/50mL 50 ML IV SCH (19:45)
[2022-04-16] MEDS: fentaNYL Drip 2500mCg/250mlNS 250 ML IV SCH (20:35)
[2022-04-16] MEDS: ATORVASTATIN 20 MG TAB PO SCH (22:01)
[2022-04-16] MEDS: NOREPINEPHRINE 8 MG/250ML KIT 250 ML IV SCH (23:45)
[2022-04-17] VITALS (101 sets, daily range): BP systolic 58–211; BP diastolic 38–120
[2022-04-17] MEDS: PROPOFOL 100 ML IV SCH ×2 (04:47→19:45)
[2022-04-17 05:14] LABS: Basophils # (auto) 0 10 ^3/uL (0-0.2); Basophils % (auto) 0.2 % (0.0-2.0); Eosinophils # (auto) 0.3 10 ^3/uL (0-0.8); Eosinophils % (auto) 3.1 % (0.0-7.0); Hematocrit 30.2 % (36.0-46.0); Hemoglobin 9.9 g/dL (12.2-16.2); Lymphocytes # (auto) 0.7 10 ^3/uL (0.4-5.4); Lymphocytes % (auto) 7.2 % (10.0-50.0); Mean Corpuscular Hemoglobin 31.2 pg (28.0-32.0); Mean Corpuscular Hgb Conc. 32.6 g/dL (32.0-36.0); Mean Corpuscular Volume 95.5 fL (80.0-100.0); Monocytes # (auto) 0.7 10 ^3/uL (0-1.3); Monocytes % (auto) 6.9 % (0.0-12.0); Neutrophils # (auto) 8.5 10 ^3/uL (1.6-8.6); Neutrophils % (auto) 82.6 % (37.0-80.0); Nucleated Red Blood Cells % 0.2 %; Red Blood Cells 3.17 10^6/uL (4.0-5.20); Red Cell Distribution Width 15.2 % (11.8-14.3); White Blood Cell 10.3 10^3/uL (4.4-10.8)
[2022-04-17 05:27] LABS: Albumin 1.7 g/dL (3.4-5.0); Calcium 7.5 mg/dL (8.5-10.1); Potassium 4.1 mmol/L (3.5-5.1)
[2022-04-17 05:32] LABS: BUN/Creatinine Ratio 9.4; Bilirubin, Total 0.4 mg/dL (0.2-1.0); Total Protein 5.2 g/dL (6.4-8.2)
[2022-04-17] MEDS: CALCIUM ACETATE 667 MG CAP NG SCH ×3 (06:30→23:27)
[2022-04-17] MEDS: SODIUM CHLOR 0.9% PF (SALINE LOCK) 10ML VIAL/SYR IV SCH ×3 (06:30→22:00)
[2022-04-17] MEDS: ACCU-CHEK COMFORT CURVE STRIP VI SCH ×4 (06:31→22:00)
[2022-04-17] MEDS: InsuLIN REG 1unit/0.01ml Soln (100units/ml) SC SCH ×4 (06:31→22:00)
[2022-04-17] MEDS ORDERED: SODIUM CHL 0.9% 1000 ML BAG XX ONE (07:00)
[2022-04-17] MEDS: hydrALAZINE HCL 25 MG TAB PO SCH ×2 (10:00→23:29)
[2022-04-17] MEDS: FUROSEMIDE 40 MG/4 ML VIAL IV SCH (10:00)
[2022-04-17] MEDS: CARVEDILOL 3.125 MG TAB PO SCH ×2 (10:00→23:28)
[2022-04-17] MEDS: ASPirin 81 mg TAB PO SCH (11:06)
[2022-04-17] MEDS: FAMOTIDINE (10MG/ML) 2ML VL IV SCH (11:06)
[2022-04-17] MEDS: cefTRIAXone 1GM/50ML D5W 50 ML IV SCH (11:06)
[2022-04-17] MEDS: AZITHROMYCIN 500MG/ 250ML 250 ML IV SCH (11:06)
[2022-04-17] MEDS: TICAGRELOR 90 MG TAB PO SCH ×2 (11:07→23:27)
[2022-04-17] MEDS: MULTIPLE VITAMIN TAB PO SCH (11:07)
[2022-04-17] MEDS: NOREPINEPHRINE 8 MG/250ML KIT 250 ML IV SCH (19:45)
[2022-04-17] MEDS: MIDAZOLAM DRIP 50 mg/50mL 50 ML IV SCH (19:45)
[2022-04-17] MEDS ORDERED: EPOETIN ALFA-EPBX 10,000 UNIT/1ML VIAL SC ONE (21:00)
[2022-04-17] MEDS: ATORVASTATIN 20 MG TAB PO SCH (22:00)
[2022-04-18] VITALS (82 sets, daily range): BP systolic 74–158; BP diastolic 44–87
[2022-04-18] MEDS: fentaNYL Drip 2500mCg/250mlNS 250 ML IV SCH (04:48)
[2022-04-18] MEDS: SODIUM CHLOR 0.9% PF (SALINE LOCK) 10ML VIAL/SYR IV SCH ×3 (04:50→22:29)
[2022-04-18 05:46] LABS: Basophils # (auto) 0 10 ^3/uL (0-0.2); Basophils % (auto) 0.2 % (0.0-2.0); Eosinophils # (auto) 0.1 10 ^3/uL (0-0.8); Hematocrit 31.4 % (36.0-46.0); Hemoglobin 9.8 g/dL (12.2-16.2); Lymphocytes # (auto) 0.9 10 ^3/uL (0.4-5.4); Lymphocytes % (auto) 7.6 % (10.0-50.0); Mean Corpuscular Hemoglobin 30.4 pg (28.0-32.0); Mean Corpuscular Hgb Conc. 31.4 g/dL (32.0-36.0); Monocytes # (auto) 0.8 10 ^3/uL (0-1.3); Monocytes % (auto) 6.5 % (0.0-12.0); Neutrophils % (auto) 84.7 % (37.0-80.0); Nucleated Red Blood Cells % 0.1 %; Red Blood Cells 3.23 10^6/uL (4.0-5.20); White Blood Cell 11.8 10^3/uL (4.4-10.8)
[2022-04-18 06:06] LABS: Potassium 4.6 mmol/L (3.5-5.1)
[2022-04-18] MEDS: CALCIUM ACETATE 667 MG CAP NG SCH ×3 (06:12→22:00)
[2022-04-18 06:21] LABS: Albumin 1.7 g/dL (3.4-5.0); Bilirubin, Total 0.4 mg/dL (0.2-1.0); Calcium 7.6 mg/dL (8.5-10.1); Total Protein 5.5 g/dL (6.4-8.2)
[2022-04-18] MEDS: InsuLIN REG 1unit/0.01ml Soln (100units/ml) SC SCH ×4 (06:26→22:00)
[2022-04-18] MEDS: ACCU-CHEK COMFORT CURVE STRIP VI SCH ×4 (06:29→22:00)
[2022-04-18] MEDS: cefTRIAXone 1GM/50ML D5W 50 ML IV SCH (08:47)
[2022-04-18] MEDS: AZITHROMYCIN 500MG/ 250ML 250 ML IV SCH (09:36)
[2022-04-18] MEDS: FUROSEMIDE 40 MG/4 ML VIAL IV SCH (09:36)
[2022-04-18] MEDS: MULTIPLE VITAMIN TAB PO SCH (09:36)
[2022-04-18] MEDS: FAMOTIDINE (10MG/ML) 2ML VL IV SCH (09:36)
[2022-04-18] MEDS: ASPirin 81 mg TAB PO SCH (09:36)
[2022-04-18] MEDS: CARVEDILOL 3.125 MG TAB PO SCH ×2 (09:37→22:00)
[2022-04-18] MEDS: TICAGRELOR 90 MG TAB PO SCH ×2 (09:37→22:00)
[2022-04-18] MEDS: hydrALAZINE HCL 25 MG TAB PO SCH ×2 (09:37→22:00)
[2022-04-18] MEDS: ALBUTEROL SULF 2.5 MG/0.5ML(0.5%) NEB SOLN NEB PRN (11:27)
[2022-04-18] MEDS: IPRATROPIUM BROM 0.5 MG/2.5ML INH SOL NEB PRN (11:27)
[2022-04-18] MEDS: ATORVASTATIN 20 MG TAB PO SCH (22:00)
[2022-04-19] VITALS (29 sets, daily range): BP systolic 83–141; BP diastolic 49–84
[2022-04-19 04:58] LABS: Basophils # (auto) 0 10 ^3/uL (0-0.2); Hematocrit 27.7 % (36.0-46.0); Lymphocytes # (auto) 0.9 10 ^3/uL (0.4-5.4); Monocytes # (auto) 0.8 10 ^3/uL (0-1.3); Red Cell Distribution Width 14.9 % (11.8-14.3)
[2022-04-19 05:00] LABS: Basophils % (auto) 0.1 % (0.0-2.0); Eosinophils # (auto) 0.1 10 ^3/uL (0-0.8); Eosinophils % (auto) 0.5 % (0.0-7.0); Hemoglobin 8.7 g/dL (12.2-16.2); Lymphocytes % (auto) 7.5 % (10.0-50.0); Mean Corpuscular Hemoglobin 30.1 pg (28.0-32.0); Mean Corpuscular Hgb Conc. 31.3 g/dL (32.0-36.0); Mean Corpuscular Volume 96.3 fL (80.0-100.0); Monocytes % (auto) 6.6 % (0.0-12.0); Neutrophils # (auto) 10.2 10 ^3/uL (1.6-8.6); Neutrophils % (auto) 85.3 % (37.0-80.0); Red Blood Cells 2.88 10^6/uL (4.0-5.20)
[2022-04-19 05:21] LABS: Albumin 1.6 g/dL (3.4-5.0); Calcium 7.8 mg/dL (8.5-10.1)
[2022-04-19 05:24] LABS: BUN/Creatinine Ratio 8.6; Bilirubin, Total 0.3 mg/dL (0.2-1.0); Total Protein 5.4 g/dL (6.4-8.2)
[2022-04-19] MEDS: SODIUM CHLOR 0.9% PF (SALINE LOCK) 10ML VIAL/SYR IV SCH ×3 (06:00→22:21)
[2022-04-19] MEDS: CALCIUM ACETATE 667 MG CAP NG SCH ×3 (06:00→22:21)
[2022-04-19] MEDS: InsuLIN REG 1unit/0.01ml Soln (100units/ml) SC SCH ×4 (06:58→22:59)
[2022-04-19] MEDS: ACCU-CHEK COMFORT CURVE STRIP VI SCH ×4 (06:59→22:59)
[2022-04-19] MEDS ORDERED: SODIUM CHL 0.9% 1000 ML BAG XX ONE (07:00)
[2022-04-19] MEDS: cefTRIAXone 1GM/50ML D5W 50 ML IV SCH (09:07)
[2022-04-19] MEDS: CARVEDILOL 3.125 MG TAB PO SCH ×2 (10:00→22:23)
[2022-04-19] MEDS: hydrALAZINE HCL 25 MG TAB PO SCH ×2 (10:00→22:22)
[2022-04-19] MEDS: ASPirin 81 mg TAB PO SCH (10:47)
[2022-04-19] MEDS: MULTIPLE VITAMIN TAB PO SCH (10:47)
[2022-04-19] MEDS: TICAGRELOR 90 MG TAB PO SCH ×2 (10:47→22:22)
[2022-04-19] MEDS: FAMOTIDINE (10MG/ML) 2ML VL IV SCH (13:00)
[2022-04-19] MEDS: FUROSEMIDE 40 MG/4 ML VIAL IV SCH (13:01)
[2022-04-19] MEDS: AZITHROMYCIN 500MG/ 250ML 250 ML IV SCH (13:01)
[2022-04-19] MEDS ORDERED: EPOETIN ALFA-EPBX 10,000 UNIT/1ML VIAL SC ONE (21:00)
[2022-04-19] MEDS: MORPHINE SULFATE INJ 2 MG/ml SYRG IV PRN (21:55)
[2022-04-19] MEDS: ONDANSETRON HCL 4 MG/2 ML VIAL IV PRN (21:55)
[2022-04-19] MEDS: ATORVASTATIN 20 MG TAB PO SCH (22:23)
[2022-04-19] MEDS: IPRATROPIUM BROM 0.5 MG/2.5ML INH SOL NEB PRN (23:32)
[2022-04-19] MEDS: ALBUTEROL SULF 2.5 MG/0.5ML(0.5%) NEB SOLN NEB PRN (23:32)
[2022-04-20 05:00] VITALS: BP 93/50
[2022-04-20 05:43] LABS: Basophils # (auto) 0 10 ^3/uL (0-0.2); Hemoglobin 8.3 g/dL (12.2-16.2); Lymphocytes # (auto) 0.9 10 ^3/uL (0.4-5.4); Monocytes # (auto) 0.7 10 ^3/uL (0-1.3); Neutrophils # (auto) 10.2 10 ^3/uL (1.6-8.6)
[2022-04-20 05:46] LABS: Basophils % (auto) 0.2 % (0.0-2.0); Eosinophils # (auto) 0.2 10 ^3/uL (0-0.8); Eosinophils % (auto) 1.5 % (0.0-7.0); Hematocrit 25.6 % (36.0-46.0); Lymphocytes % (auto) 7.5 % (10.0-50.0); Mean Corpuscular Hgb Conc. 32.5 g/dL (32.0-36.0); Mean Corpuscular Volume 95.4 fL (80.0-100.0); Monocytes % (auto) 5.8 % (0.0-12.0); Red Blood Cells 2.68 10^6/uL (4.0-5.20); Red Cell Distribution Width 14.6 % (11.8-14.3); White Blood Cell 11.9 10^3/uL (4.4-10.8)
[2022-04-20 05:51] LABS: Potassium 3.5 mmol/L (3.5-5.1)
[2022-04-20 06:00] LABS: Albumin 1.5 g/dL (3.4-5.0); BUN/Creatinine Ratio 8.2; Bilirubin, Total 0.3 mg/dL (0.2-1.0); Calcium 7.4 mg/dL (8.5-10.1)
[2022-04-20] MEDS: InsuLIN REG 1unit/0.01ml Soln (100units/ml) SC SCH ×4 (06:10→22:00)
[2022-04-20] MEDS: CALCIUM ACETATE 667 MG CAP NG SCH ×3 (06:10→22:07)
[2022-04-20] MEDS: ACCU-CHEK COMFORT CURVE STRIP VI SCH ×4 (06:10→22:00)
[2022-04-20] MEDS: SODIUM CHLOR 0.9% PF (SALINE LOCK) 10ML VIAL/SYR IV SCH ×3 (06:10→22:53)
[2022-04-20 09:00] VITALS: BP 130/75
[2022-04-20] MEDS: cefTRIAXone 1GM/50ML D5W 50 ML IV SCH (09:43)
[2022-04-20] MEDS: FUROSEMIDE 40 MG/4 ML VIAL IV SCH (09:47)
[2022-04-20] MEDS: TICAGRELOR 90 MG TAB PO SCH ×2 (09:50→22:07)
[2022-04-20] MEDS: ASPirin 81 mg TAB PO SCH (09:50)
[2022-04-20] MEDS: hydrALAZINE HCL 25 MG TAB PO SCH ×2 (09:51→22:08)
[2022-04-20] MEDS: CARVEDILOL 3.125 MG TAB PO SCH ×2 (09:51→22:09)
[2022-04-20] MEDS: AZITHROMYCIN 500MG/ 250ML 250 ML IV SCH (09:52)
[2022-04-20] MEDS: MULTIPLE VITAMIN TAB PO SCH (09:58)
[2022-04-20] MEDS: ONDANSETRON HCL 4 MG/2 ML VIAL IV PRN (09:58)
[2022-04-20] MEDS: FAMOTIDINE (10MG/ML) 2ML VL IV SCH (09:58)
[2022-04-20 12:37] VITALS: BP 113/69
[2022-04-20 16:41] VITALS: BP 101/62
[2022-04-20] MEDS: ATORVASTATIN 20 MG TAB PO SCH (22:08)
[2022-04-20 22:47] VITALS: BP 140/78
[2022-04-21] MEDS: ACETAMINOPHEN 325 MG TAB PO PRN (04:46)
[2022-04-21 05:15] VITALS: BP 133/83
[2022-04-21] MEDS: CALCIUM ACETATE 667 MG CAP NG SCH ×3 (05:42→21:25)
[2022-04-21] MEDS: InsuLIN REG 1unit/0.01ml Soln (100units/ml) SC SCH ×4 (05:56→22:00)
[2022-04-21] MEDS: SODIUM CHLOR 0.9% PF (SALINE LOCK) 10ML VIAL/SYR IV SCH ×2 (05:56→13:27)
[2022-04-21] MEDS: ACCU-CHEK COMFORT CURVE STRIP VI SCH ×4 (05:56→22:00)
[2022-04-21] MEDS: cefTRIAXone 1GM/50ML D5W 50 ML IV SCH (09:14)
[2022-04-21] MEDS: FUROSEMIDE 40 MG/4 ML VIAL IV SCH (09:19)
[2022-04-21] MEDS: FAMOTIDINE (10MG/ML) 2ML VL IV SCH (09:20)
[2022-04-21] MEDS: MULTIPLE VITAMIN TAB PO SCH (09:20)
[2022-04-21] MEDS: hydrALAZINE HCL 25 MG TAB PO SCH ×2 (09:20→21:26)
[2022-04-21] MEDS: ASPirin 81 mg TAB PO SCH (09:20)
[2022-04-21 09:21] VITALS: BP 135/82
[2022-04-21] MEDS: TICAGRELOR 90 MG TAB PO SCH ×2 (09:21→21:27)
[2022-04-21] MEDS: CARVEDILOL 3.125 MG TAB PO SCH ×2 (09:22→21:27)
[2022-04-21] MEDS: AZITHROMYCIN 500MG/ 250ML 250 ML IV SCH (09:22)
[2022-04-21 12:47] LABS: BUN/Creatinine Ratio 8.7; Calcium 7.5 mg/dL (8.5-10.1); Potassium 3.7 mmol/L (3.5-5.1)
[2022-04-21 13:00] VITALS: BP 107/70
[2022-04-21 17:15] VITALS: BP 123/83
[2022-04-21] MEDS ORDERED: EPOETIN ALFA-EPBX 10,000 UNIT/1ML VIAL SC ONE (21:00)
[2022-04-21] MEDS: ATORVASTATIN 20 MG TAB PO SCH (21:25)
[2022-04-21] MEDS: HYDROcodone-ACET 5/325MG TAB PO PRN (21:30)
[2022-04-21 22:00] VITALS: BP 119/84
[2022-04-22] MEDS: SODIUM CHLOR 0.9% PF (SALINE LOCK) 10ML VIAL/SYR IV SCH ×4 (00:21→21:29)
[2022-04-22 05:00] VITALS: BP 131/83
[2022-04-22] MEDS: ONDANSETRON HCL 4 MG/2 ML VIAL IV PRN ×2 (05:08→13:32)
[2022-04-22] MEDS: CALCIUM ACETATE 667 MG CAP NG SCH ×3 (06:05→21:38)
[2022-04-22] MEDS: InsuLIN REG 1unit/0.01ml Soln (100units/ml) SC SCH ×4 (06:15→21:40)
[2022-04-22] MEDS: ACCU-CHEK COMFORT CURVE STRIP VI SCH ×4 (06:15→21:40)
[2022-04-22 06:44] LABS: Basophils # (auto) 0 10 ^3/uL (0-0.2); Basophils % (auto) 0.5 % (0.0-2.0); Eosinophils # (auto) 0.1 10 ^3/uL (0-0.8); Eosinophils % (auto) 1.6 % (0.0-7.0); Hematocrit 29.4 % (36.0-46.0); Hemoglobin 9.5 g/dL (12.2-16.2); Lymphocytes # (auto) 1.1 10 ^3/uL (0.4-5.4); Lymphocytes % (auto) 13.3 % (10.0-50.0); Mean Corpuscular Hemoglobin 30.3 pg (28.0-32.0); Mean Corpuscular Hgb Conc. 32.3 g/dL (32.0-36.0); Mean Corpuscular Volume 93.8 fL (80.0-100.0); Monocytes # (auto) 0.4 10 ^3/uL (0-1.3); Monocytes % (auto) 5.5 % (0.0-12.0); Neutrophils # (auto) 6.4 10 ^3/uL (1.6-8.6); Neutrophils % (auto) 79.1 % (37.0-80.0); Red Blood Cells 3.13 10^6/uL (4.0-5.20); Red Cell Distribution Width 14.4 % (11.8-14.3); White Blood Cell 8.1 10^3/uL (4.4-10.8)
[2022-04-22 07:10] LABS: BUN/Creatinine Ratio 8.8; Calcium 7.8 mg/dL (8.5-10.1); Potassium 4.1 mmol/L (3.5-5.1)
[2022-04-22 09:08] VITALS: BP 144/87
[2022-04-22] MEDS: cefTRIAXone 1GM/50ML D5W 50 ML IV SCH (11:13)
[2022-04-22] MEDS: FAMOTIDINE (10MG/ML) 2ML VL IV SCH (11:13)
[2022-04-22] MEDS: AZITHROMYCIN 500MG/ 250ML 250 ML IV SCH (11:14)
[2022-04-22] MEDS: hydrALAZINE HCL 25 MG TAB PO SCH ×2 (11:14→21:38)
[2022-04-22] MEDS: SODIUM CHLORIDE 0.9% 1,000 ML IV SCH (11:14)
[2022-04-22] MEDS: FUROSEMIDE 40 MG/4 ML VIAL IV SCH (11:14)
[2022-04-22] MEDS: ASPirin 81 mg TAB PO SCH (11:14)
[2022-04-22] MEDS: CARVEDILOL 3.125 MG TAB PO SCH ×2 (11:15→21:39)
[2022-04-22] MEDS: MULTIPLE VITAMIN TAB PO SCH (11:15)
[2022-04-22] MEDS ORDERED: ENOXAPARIN SOD 60 MG/0.6 ML SYRINGE SC ONE (11:15)
[2022-04-22] MEDS: TICAGRELOR 90 MG TAB PO SCH ×2 (11:15→21:27)
[2022-04-22 12:32] VITALS: BP 122/75
[2022-04-22] MEDS: HYDROcodone-ACET 5/325MG TAB PO PRN (12:34)
[2022-04-22 16:27] VITALS: BP 118/80
[2022-04-22] MEDS: ATORVASTATIN 20 MG TAB PO SCH (21:39)
[2022-04-23] MEDS: SODIUM CHLORIDE 0.9% 1,000 ML IV SCH (05:15)
[2022-04-23] MEDS: SODIUM CHLOR 0.9% PF (SALINE LOCK) 10ML VIAL/SYR IV SCH ×3 (06:00→21:55)
[2022-04-23] MEDS: CALCIUM ACETATE 667 MG CAP NG SCH ×3 (06:54→21:55)
[2022-04-23] MEDS: InsuLIN REG 1unit/0.01ml Soln (100units/ml) SC SCH ×4 (06:54→22:00)
[2022-04-23] MEDS: ACCU-CHEK COMFORT CURVE STRIP VI SCH ×4 (06:55→21:57)
[2022-04-23] MEDS ORDERED: SODIUM CHL 0.9% 1000 ML BAG XX ONE (07:00)
[2022-04-23 09:00] VITALS: BP 136/83
[2022-04-23 09:41] LABS: Calcium 7.6 mg/dL (8.5-10.1); Potassium 4.2 mmol/L (3.5-5.1)
[2022-04-23] MEDS: MULTIPLE VITAMIN TAB PO SCH (10:00)
[2022-04-23] MEDS: hydrALAZINE HCL 25 MG TAB PO SCH ×2 (10:00→21:55)
[2022-04-23] MEDS: ASPirin 81 mg TAB PO SCH (10:00)
[2022-04-23] MEDS: TICAGRELOR 90 MG TAB PO SCH ×2 (10:00→22:00)
[2022-04-23] MEDS: CARVEDILOL 3.125 MG TAB PO SCH ×2 (10:00→21:56)
[2022-04-23] MEDS: FUROSEMIDE 40 MG/4 ML VIAL IV SCH (10:10)
[2022-04-23] MEDS: cefTRIAXone 1GM/50ML D5W 50 ML IV SCH (10:10)
[2022-04-23] MEDS: FAMOTIDINE (10MG/ML) 2ML VL IV SCH (10:11)
[2022-04-23 11:45] LABS: INR 1.09 (0.9-1.15); Partial Thromboplastin Time 33.3 sec (24.6-33.4)
[2022-04-23] MEDS ORDERED: LIDOCAINE 2%HCL (LOCAL ANESTH.) INJ 20ML MDV ONE (12:31)
[2022-04-23] MEDS ORDERED: HEPARIN IN NS 1000Units/500mL 0 ML ONE (12:31)
[2022-04-23 16:00] LABS: Hematocrit 34.6 % (36.0-46.0); Hemoglobin 10.8 g/dL (12.2-16.2)
[2022-04-23 17:00] VITALS: BP 97/67
[2022-04-23] MEDS: ACETAMINOPHEN 325 MG TAB PO PRN (17:48)
[2022-04-23] MEDS ORDERED: EPOETIN ALFA-EPBX 10,000 UNIT/1ML VIAL SC ONE (21:00)
[2022-04-23] MEDS: ATORVASTATIN 20 MG TAB PO SCH (21:56)
[2022-04-23 22:00] VITALS: BP 136/83
[2022-04-24] MEDS: SODIUM CHLORIDE 0.9% 1,000 ML IV SCH ×2 (01:15→21:15)
[2022-04-24 05:00] VITALS: BP 136/80
[2022-04-24] MEDS: SODIUM CHLOR 0.9% PF (SALINE LOCK) 10ML VIAL/SYR IV SCH ×3 (06:49→22:00)
[2022-04-24] MEDS: CALCIUM ACETATE 667 MG CAP NG SCH ×3 (06:49→22:47)
[2022-04-24] MEDS: ACCU-CHEK COMFORT CURVE STRIP VI SCH ×4 (06:49→22:00)
[2022-04-24] MEDS: InsuLIN REG 1unit/0.01ml Soln (100units/ml) SC SCH ×4 (06:59→22:00)
[2022-04-24 08:57] VITALS: BP 103/62
[2022-04-24] MEDS: FUROSEMIDE 40 MG/4 ML VIAL IV SCH (09:50)
[2022-04-24] MEDS: hydrALAZINE HCL 25 MG TAB PO SCH ×2 (09:50→22:47)
[2022-04-24] MEDS: ASPirin 81 mg TAB PO SCH (09:51)
[2022-04-24] MEDS: FAMOTIDINE (10MG/ML) 2ML VL IV SCH (09:52)
[2022-04-24] MEDS: cefTRIAXone 1GM/50ML D5W 50 ML IV SCH (09:54)
[2022-04-24] MEDS: CARVEDILOL 3.125 MG TAB PO SCH ×2 (09:57→22:48)
[2022-04-24] MEDS: MULTIPLE VITAMIN TAB PO SCH (09:58)
[2022-04-24] MEDS: TICAGRELOR 90 MG TAB PO SCH ×2 (09:59→22:47)
[2022-04-24 11:06] LABS: BUN/Creatinine Ratio 7.5; Calcium 7.1 mg/dL (8.5-10.1); Potassium 4.2 mmol/L (3.5-5.1)
[2022-04-24 12:46] VITALS: BP 125/71
[2022-04-24 17:00] VITALS: BP 139/94
[2022-04-24 21:00] VITALS: BP 138/76
[2022-04-24] MEDS: ATORVASTATIN 20 MG TAB PO SCH (22:48)
[2022-04-25 04:48] VITALS: BP 102/61
[2022-04-25] MEDS: ACCU-CHEK COMFORT CURVE STRIP VI SCH ×4 (05:59→21:07)
[2022-04-25] MEDS: SODIUM CHLOR 0.9% PF (SALINE LOCK) 10ML VIAL/SYR IV SCH ×3 (05:59→21:05)
[2022-04-25] MEDS: CALCIUM ACETATE 667 MG CAP NG SCH ×3 (06:02→21:06)
[2022-04-25] MEDS: InsuLIN REG 1unit/0.01ml Soln (100units/ml) SC SCH ×4 (06:12→21:07)
[2022-04-25 07:14] LABS: Potassium 4.1 mmol/L (3.5-5.1)
[2022-04-25 07:24] LABS: Albumin 1.7 g/dL (3.4-5.0); BUN/Creatinine Ratio 7.1; Bilirubin, Total 0.3 mg/dL (0.2-1.0); Calcium 7.4 mg/dL (8.5-10.1); Total Protein 5.4 g/dL (6.4-8.2)
[2022-04-25 09:00] VITALS: BP 104/68
[2022-04-25] MEDS: cefTRIAXone 1GM/50ML D5W 50 ML IV SCH (09:14)
[2022-04-25] MEDS: FUROSEMIDE 40 MG/4 ML VIAL IV SCH (09:14)
[2022-04-25] MEDS: TICAGRELOR 90 MG TAB PO SCH ×2 (09:15→22:00)
[2022-04-25] MEDS: FAMOTIDINE (10MG/ML) 2ML VL IV SCH (09:15)
[2022-04-25] MEDS: hydrALAZINE HCL 25 MG TAB PO SCH ×2 (09:15→21:06)
[2022-04-25] MEDS: ASPirin 81 mg TAB PO SCH (09:15)
[2022-04-25] MEDS: MULTIPLE VITAMIN TAB PO SCH (09:16)
[2022-04-25] MEDS: CARVEDILOL 3.125 MG TAB PO SCH ×2 (09:16→21:07)
[2022-04-25 13:25] VITALS: BP 112/60
[2022-04-25 16:53] LABS: INR 1.13 (0.9-1.15); Partial Thromboplastin Time 35.9 sec (24.6-33.4)
[2022-04-25] MEDS: SODIUM CHLORIDE 0.9% 1,000 ML IV SCH (16:56)
[2022-04-25 17:00] VITALS: BP 111/86
[2022-04-25] MEDS: ATORVASTATIN 20 MG TAB PO SCH (21:07)
[2022-04-25 22:00] VITALS: BP 140/82
[2022-04-26 05:00] VITALS: BP 119/75
[2022-04-26] MEDS: InsuLIN REG 1unit/0.01ml Soln (100units/ml) SC SCH ×4 (05:36→21:02)
[2022-04-26] MEDS: ACCU-CHEK COMFORT CURVE STRIP VI SCH ×4 (05:36→21:03)
[2022-04-26] MEDS: SODIUM CHLOR 0.9% PF (SALINE LOCK) 10ML VIAL/SYR IV SCH ×3 (05:37→21:02)
[2022-04-26] MEDS: CALCIUM ACETATE 667 MG CAP NG SCH ×3 (05:37→21:01)
[2022-04-26 05:48] LABS: Albumin 1.6 g/dL (3.4-5.0); Calcium 7.3 mg/dL (8.5-10.1); Potassium 3.8 mmol/L (3.5-5.1)
[2022-04-26 05:52] LABS: BUN/Creatinine Ratio 7.1; Bilirubin, Total 0.3 mg/dL (0.2-1.0)
[2022-04-26 08:44] VITALS: BP 125/65
[2022-04-26] MEDS: MULTIPLE VITAMIN TAB PO SCH (11:00)
[2022-04-26] MEDS: FUROSEMIDE 40 MG/4 ML VIAL IV SCH (11:00)
[2022-04-26] MEDS: ASPirin 81 mg TAB PO SCH ×2 (11:00→14:23)
[2022-04-26] MEDS: TICAGRELOR 90 MG TAB PO SCH ×3 (11:00→21:01)
[2022-04-26] MEDS: hydrALAZINE HCL 25 MG TAB PO SCH ×2 (11:00→21:02)
[2022-04-26] MEDS: CARVEDILOL 3.125 MG TAB PO SCH ×2 (11:00→21:01)
[2022-04-26] MEDS: FAMOTIDINE (10MG/ML) 2ML VL IV SCH (11:02)
[2022-04-26 12:32] VITALS: BP 143/90
[2022-04-26] MEDS: SODIUM CHLORIDE 0.9% 1,000 ML IV SCH (13:15)
[2022-04-26] MEDS ORDERED: SODIUM CHL 0.9% 1000 ML BAG XX ONE (14:30)
[2022-04-26 14:40] VITALS: BP 126/79
[2022-04-26 17:00] VITALS: BP 135/78
[2022-04-26] MEDS ORDERED: EPOETIN ALFA-EPBX 10,000 UNIT/1ML VIAL SC ONE (21:00)
[2022-04-26] MEDS: ATORVASTATIN 20 MG TAB PO SCH (21:01)
[2022-04-26 21:48] VITALS: BP 126/78
[2022-04-27] VITALS (7 sets, daily range): BP systolic 92–130; BP diastolic 56–84
[2022-04-27 05:22] LABS: Albumin 1.6 g/dL (3.4-5.0); Calcium 7.3 mg/dL (8.5-10.1); Potassium 3.9 mmol/L (3.5-5.1)
[2022-04-27 05:25] LABS: Bilirubin, Total 0.2 mg/dL (0.2-1.0)
[2022-04-27] MEDS: CALCIUM ACETATE 667 MG CAP NG SCH ×3 (06:00→21:37)
[2022-04-27] MEDS: SODIUM CHLOR 0.9% PF (SALINE LOCK) 10ML VIAL/SYR IV SCH ×3 (06:01→21:37)
[2022-04-27] MEDS: ACCU-CHEK COMFORT CURVE STRIP VI SCH ×4 (06:02→21:37)
[2022-04-27] MEDS: InsuLIN REG 1unit/0.01ml Soln (100units/ml) SC SCH ×4 (06:06→21:37)
[2022-04-27] MEDS: hydrALAZINE HCL 25 MG TAB PO SCH ×2 (10:00→21:36)
[2022-04-27] MEDS: FUROSEMIDE 40 MG/4 ML VIAL IV SCH (11:02)
[2022-04-27] MEDS: ASPirin 81 mg TAB PO SCH (11:03)
[2022-04-27] MEDS: MULTIPLE VITAMIN TAB PO SCH (11:03)
[2022-04-27] MEDS: TICAGRELOR 90 MG TAB PO SCH ×2 (11:03→21:37)
[2022-04-27] MEDS: CARVEDILOL 3.125 MG TAB PO SCH ×2 (11:03→21:36)
[2022-04-27] MEDS: SODIUM CHLORIDE 0.9% 1,000 ML IV SCH (11:04)
[2022-04-27] MEDS: FAMOTIDINE (10MG/ML) 2ML VL IV SCH (11:04)
[2022-04-27] MEDS ORDERED: fentaNYL CITRATE 100 MCG/2 ML VL ONE (12:05)
[2022-04-27] MEDS ORDERED: MIDAZOLAM HCL 2MG/2ML 2ml VIAL (1mg/ml) ONE (12:06)
[2022-04-27] MEDS ORDERED: LIDOCAINE 2%HCL (LOCAL ANESTH.) INJ 20ML MDV ONE (12:26)
[2022-04-27] MEDS ORDERED: HEPARIN SODIUM (PORCINE) 5000 UNITS/ML 1ML VIAL ONE (12:53)
[2022-04-27] MEDS: ACETAMINOPHEN 325 MG TAB PO PRN (20:29)
[2022-04-27] MEDS: ATORVASTATIN 20 MG TAB PO SCH (21:36)
[2022-04-28 04:43] VITALS: BP 97/60
[2022-04-28 05:26] LABS: Albumin 1.6 g/dL (3.4-5.0); BUN/Creatinine Ratio 5.4; Potassium 3.8 mmol/L (3.5-5.1)
[2022-04-28 05:29] LABS: Bilirubin, Total 0.3 mg/dL (0.2-1.0)
[2022-04-28] MEDS: SODIUM CHLORIDE 0.9% 1,000 ML IV SCH (06:29)
[2022-04-28] MEDS: CALCIUM ACETATE 667 MG CAP NG SCH ×3 (06:29→21:43)
[2022-04-28] MEDS: ACCU-CHEK COMFORT CURVE STRIP VI SCH ×4 (06:29→21:46)
[2022-04-28] MEDS: InsuLIN REG 1unit/0.01ml Soln (100units/ml) SC SCH ×4 (06:29→21:46)
[2022-04-28] MEDS: SODIUM CHLOR 0.9% PF (SALINE LOCK) 10ML VIAL/SYR IV SCH ×3 (06:29→21:43)
[2022-04-28 09:00] VITALS: BP 95/59
[2022-04-28] MEDS: FUROSEMIDE 40 MG/4 ML VIAL IV SCH (09:30)
[2022-04-28] MEDS: MULTIPLE VITAMIN TAB PO SCH (09:30)
[2022-04-28] MEDS: CARVEDILOL 3.125 MG TAB PO SCH ×2 (09:30→21:45)
[2022-04-28] MEDS: TICAGRELOR 90 MG TAB PO SCH ×2 (09:30→21:44)
[2022-04-28] MEDS: FAMOTIDINE (10MG/ML) 2ML VL IV SCH (09:30)
[2022-04-28] MEDS: ASPirin 81 mg TAB PO SCH (09:30)
[2022-04-28] MEDS: hydrALAZINE HCL 25 MG TAB PO SCH ×2 (09:30→21:44)
[2022-04-28 13:00] VITALS: BP 106/71
[2022-04-28 17:00] VITALS: BP 112/76
[2022-04-28 21:44] VITALS: BP 106/73
[2022-04-28] MEDS: ATORVASTATIN 20 MG TAB PO SCH (21:45)
[2022-04-29] MEDS: SODIUM CHLORIDE 0.9% 1,000 ML IV SCH (01:15)
[2022-04-29 04:58] VITALS: BP 86/55
[2022-04-29 06:20] LABS: Calcium 6.9 mg/dL (8.5-10.1); Potassium 3.8 mmol/L (3.5-5.1)
[2022-04-29 06:27] LABS: Albumin 1.5 g/dL (3.4-5.0); BUN/Creatinine Ratio 5.1; Bilirubin, Total 0.4 mg/dL (0.2-1.0)
[2022-04-29] MEDS: SODIUM CHLOR 0.9% PF (SALINE LOCK) 10ML VIAL/SYR IV SCH ×3 (06:42→22:04)
[2022-04-29] MEDS: CALCIUM ACETATE 667 MG CAP NG SCH ×3 (06:43→22:07)
[2022-04-29] MEDS: InsuLIN REG 1unit/0.01ml Soln (100units/ml) SC SCH ×4 (06:44→22:00)
[2022-04-29] MEDS: ACCU-CHEK COMFORT CURVE STRIP VI SCH ×4 (06:44→22:05)
[2022-04-29 09:00] VITALS: BP 87/54
[2022-04-29] MEDS: FUROSEMIDE 40 MG/4 ML VIAL IV SCH (11:16)
[2022-04-29] MEDS: FAMOTIDINE (10MG/ML) 2ML VL IV SCH (11:16)
[2022-04-29] MEDS: TICAGRELOR 90 MG TAB PO SCH ×2 (11:16→22:07)
[2022-04-29] MEDS: ASPirin 81 mg TAB PO SCH (11:16)
[2022-04-29] MEDS: MULTIPLE VITAMIN TAB PO SCH (11:16)
[2022-04-29] MEDS: CARVEDILOL 3.125 MG TAB PO SCH ×2 (11:17→22:00)
[2022-04-29 16:55] VITALS: BP 124/79
[2022-04-29 21:35] VITALS: BP 96/63
[2022-04-29] MEDS: ATORVASTATIN 20 MG TAB PO SCH (22:06)
[2022-04-30 05:23] VITALS: BP 93/55
[2022-04-30] MEDS: SODIUM CHLOR 0.9% PF (SALINE LOCK) 10ML VIAL/SYR IV SCH ×3 (05:55→21:42)
[2022-04-30] MEDS: CALCIUM ACETATE 667 MG CAP NG SCH ×4 (05:55→22:00)
[2022-04-30] MEDS: ACCU-CHEK COMFORT CURVE STRIP VI SCH ×4 (05:56→21:50)
[2022-04-30] MEDS ORDERED: SODIUM CHL 0.9% 1000 ML BAG XX ONE (07:00)
[2022-04-30] MEDS: InsuLIN REG 1unit/0.01ml Soln (100units/ml) SC SCH ×4 (07:00→21:49)
[2022-04-30 09:00] VITALS: BP 101/72
[2022-04-30] MEDS: FAMOTIDINE (10MG/ML) 2ML VL IV SCH (10:19)
[2022-04-30] MEDS: MULTIPLE VITAMIN TAB PO SCH (10:19)
[2022-04-30] MEDS: ALBUMIN 25% 100 ML IV SCH ×2 (10:25→11:16)
[2022-04-30 13:00] VITALS: BP 97/69
[2022-04-30] MEDS: CARVEDILOL 3.125 MG TAB PO SCH ×2 (13:13→21:47)
[2022-04-30] MEDS: ASPirin 81 mg TAB PO SCH (13:13)
[2022-04-30] MEDS: FUROSEMIDE 40 MG/4 ML VIAL IV SCH (13:13)
[2022-04-30] MEDS: TICAGRELOR 90 MG TAB PO SCH ×2 (13:13→22:20)
[2022-04-30] MEDS ORDERED: LOPERAMIDE HCL 2 MG CAP/TAB PO PRN ×2 (14:15→14:30)
[2022-04-30] MEDS ORDERED: LOPERAMIDE HCL 2 MG CAP/TAB PO ONE (14:15)
[2022-04-30 17:00] VITALS: BP 98/66
[2022-04-30] MEDS ORDERED: EPOETIN ALFA-EPBX 10,000 UNIT/1ML VIAL SC ONE (21:00)
[2022-04-30] MEDS: ATORVASTATIN 20 MG TAB PO SCH (21:49)
[2022-05-01 05:00] VITALS: BP 87/57
[2022-05-01] MEDS: InsuLIN REG 1unit/0.01ml Soln (100units/ml) SC SCH ×3 (05:56→16:52)
[2022-05-01] MEDS: SODIUM CHLOR 0.9% PF (SALINE LOCK) 10ML VIAL/SYR IV SCH ×2 (05:56→14:00)
[2022-05-01] MEDS: CALCIUM ACETATE 667 MG CAP NG SCH ×2 (05:56→15:01)
[2022-05-01] MEDS: ACCU-CHEK COMFORT CURVE STRIP VI SCH ×3 (05:57→16:53)
[2022-05-01 06:26] VITALS: BP 97/65
[2022-05-01 09:11] VITALS: BP 89/59
[2022-05-01] MEDS: TICAGRELOR 90 MG TAB PO SCH (09:35)
[2022-05-01] MEDS: ASPirin 81 mg TAB PO SCH (09:35)
[2022-05-01] MEDS: MULTIPLE VITAMIN TAB PO SCH (09:35)
[2022-05-01] MEDS: FAMOTIDINE (10MG/ML) 2ML VL IV SCH (09:35)
[2022-05-01] MEDS: FUROSEMIDE 40 MG/4 ML VIAL IV SCH (10:47)
[2022-05-01] MEDS: CARVEDILOL 3.125 MG TAB PO SCH (10:49)
[2022-05-01 13:00] VITALS: BP 113/78
[2022-05-01 17:00] VITALS: BP 101/69
[2022-05-02] MEDS ORDERED: SODIUM CHL 0.9% 1000 ML BAG XX ONE (07:00)
[2022-05-02] MEDS ORDERED: EPOETIN ALFA-EPBX 10,000 UNIT/1ML VIAL SC ONE (21:00)
== END 2022-05-01 20:16 | DRG 174 ==
LOC: ER 21:37 → TELE 04-13 05:29 → TELE-WESTW 04-13 08:10 → ICU CENTRL 04-13 19:45 → TELE-WESTW 04-19 16:54
PROVIDERS: ADMIT Nurse Practitioner Family; ATTEND Family Medicine
PROC: 5A12012 Performance of Cardiac Output, Single, Manual (ICD-10-PCS; 2022-04-13)
PROC: 5A1955Z Respiratory Ventilation, Greater than 96 Consecutive Hours (ICD-10-PCS; 2022-04-14)
PROC: 0BH17EZ Insertion of Endotracheal Airway into Trachea, Via Natural or Artificial Opening (ICD-10-PCS; 2022-04-14)
PROC: 02HV33Z Insertion of Infusion Device into Superior Vena Cava, Percutaneous Approach (ICD-10-PCS; 2022-04-14)
PROC: B548ZZA Ultrasonography of Superior Vena Cava, Guidance (ICD-10-PCS; 2022-04-14)
PROC: 06HY33Z Insertion of Infusion Device into Lower Vein, Percutaneous Approach (ICD-10-PCS; 2022-04-14)
PROC: B54BZZA Ultrasonography of Right Lower Extremity Veins, Guidance (ICD-10-PCS; 2022-04-14)
PROC: 027135Z Dilation of Coronary Artery, Two Arteries with Two Drug-eluting Intraluminal Devices, Percutaneous Approach (ICD-10-PCS; 2022-04-15)
PROC: 0W993ZZ Drainage of Right Pleural Cavity, Percutaneous Approach (ICD-10-PCS; 2022-04-15)
PROC: 0W993ZZ Drainage of Right Pleural Cavity, Percutaneous Approach (ICD-10-PCS; 2022-04-15)
PROC: 5A1D70Z Performance of Urinary Filtration, Intermittent, Less than 6 Hours Per Day (ICD-10-PCS; 2022-04-15)
PROC: B211YZZ Fluoroscopy of Multiple Coronary Arteries using Other Contrast (ICD-10-PCS; principal; 2022-04-16)
PROC: 0W993ZZ Drainage of Right Pleural Cavity, Percutaneous Approach (ICD-10-PCS; 2022-04-16)
PROC: 4A023N7 Measurement of Cardiac Sampling and Pressure, Left Heart, Percutaneous Approach (ICD-10-PCS; 2022-04-16)
PROC: 0W9B3ZZ Drainage of Left Pleural Cavity, Percutaneous Approach (ICD-10-PCS; 2022-04-16)
PROC: 5A1D70Z Performance of Urinary Filtration, Intermittent, Less than 6 Hours Per Day (ICD-10-PCS; 2022-04-17)
PROC: 5A1D70Z Performance of Urinary Filtration, Intermittent, Less than 6 Hours Per Day (ICD-10-PCS; 2022-04-19)
PROC: 0JH63XZ Insertion of Tunneled Vascular Access Device into Chest Subcutaneous Tissue and Fascia, Percutaneous Approach (ICD-10-PCS; 2022-04-27)
PROC: 02HV33Z Insertion of Infusion Device into Superior Vena Cava, Percutaneous Approach (ICD-10-PCS; 2022-04-27)
PROC: B5181ZA Fluoroscopy of Superior Vena Cava using Low Osmolar Contrast, Guidance (ICD-10-PCS; 2022-04-27)
PROC: B548ZZA Ultrasonography of Superior Vena Cava, Guidance (ICD-10-PCS; 2022-04-27)
PROC: 5A1D70Z Performance of Urinary Filtration, Intermittent, Less than 6 Hours Per Day (ICD-10-PCS; 2022-04-27)
PROC: 5A1D70Z Performance of Urinary Filtration, Intermittent, Less than 6 Hours Per Day (ICD-10-PCS; 2022-04-30)
DX: I21.4 Non-ST elevation (NSTEMI) myocardial infarction (principal); J96.01 Acute respiratory failure with hypoxia; I46.9 Cardiac arrest, cause unspecified; I26.99 Other pulmonary embolism without acute cor pulmonale; N17.0 Acute kidney failure with tubular necrosis; J18.9 Pneumonia, unspecified organism; D63.1 Anemia in chronic kidney disease; E83.39 Other disorders of phosphorus metabolism; J91.8 Pleural effusion in other conditions classified elsewhere; G93.41 Metabolic encephalopathy; N18.6 End stage renal disease; E87.2 Acidosis; Z20.822 Contact with and (suspected) exposure to COVID-19; E88.09 Other disorders of plasma-protein metabolism, not elsewhere classified; I42.9 Cardiomyopathy, unspecified; I50.43 Acute on chronic combined systolic (congestive) and diastolic (congestive) heart failure; J98.11 Atelectasis; N39.0 Urinary tract infection, site not specified; E11.22 Type 2 diabetes mellitus with diabetic chronic kidney disease; I13.2 Hypertensive heart and chronic kidney disease with heart failure and with stage 5 chronic kidney disease, or end stage renal disease; Z99.2 Dependence on renal dialysis; E78.00 Pure hypercholesterolemia, unspecified; E11.40 Type 2 diabetes mellitus with diabetic neuropathy, unspecified; E11.65 Type 2 diabetes mellitus with hyperglycemia; F17.200 Nicotine dependence, unspecified, uncomplicated; F23 Brief psychotic disorder; G93.1 Anoxic brain damage, not elsewhere classified; J44.0 Chronic obstructive pulmonary disease with (acute) lower respiratory infection; Z83.3 Family history of diabetes mellitus; Z91.15 Patient's noncompliance with renal dialysis; Z79.4 Long term (current) use of insulin
CPT/HCPCS: 36415; 36600; 70450; 71045; 76775; 76942; 78582; 80048; 80053; 81001; 81025; 82570; 82805; 82962; 83036; 83735; 83880; 83986; 84100; 84300; 84443; 84484; 84550; 85014; 85018; 85025; 85379; 85610; 85730; 87045; 87070; 87081; 87086; 87205; 87340; 87427; 87493; 87804; 89051; 90935; 93005; 93306; 93970; 94002; 94003; 94640; 95819; 96365; 96367; 96368; 96375; 97110; 97116; 97163; 97530; 99152; 99153; 99291; C1874; G0378; J0696; J1642; J1815; J2001; J2250; J2405; J2704; J3480; J3490; P9047; Q9967

== ENCOUNTER 2022-05-11 13:45 | Inpatient (IN) | payer MEDICAID ==
[~2022-05-11] VITALS: Ht 152.4 cm; Wt 50.7 kg
[2022-05-11 14:43] LABS: Basophils # (auto) 0 10 ^3/uL (0-0.2); Basophils % (auto) 0.6 % (0.0-2.0); Eosinophils # (auto) 0.1 10 ^3/uL (0-0.8); Eosinophils % (auto) 0.8 % (0.0-7.0); Hematocrit 27.3 % (36.0-46.0); Hemoglobin 8.5 g/dL (12.2-16.2); Lymphocytes # (auto) 0.6 10 ^3/uL (0.4-5.4); Lymphocytes % (auto) 7.8 % (10.0-50.0); Mean Corpuscular Hemoglobin 29.5 pg (28.0-32.0); Monocytes # (auto) 0.2 10 ^3/uL (0-1.3); Monocytes % (auto) 2.9 % (0.0-12.0); Neutrophils # (auto) 6.9 10 ^3/uL (1.6-8.6); Neutrophils % (auto) 87.9 % (37.0-80.0); Nucleated Red Blood Cells % 0.1 %; Red Blood Cells 2.88 10^6/uL (4.0-5.20); Red Cell Distribution Width 16.3 % (11.8-14.3); White Blood Cell 7.8 10^3/uL (4.4-10.8)
[2022-05-11 15:44] LABS: Potassium 3.6 mmol/L (3.5-5.1)
[2022-05-11 15:58] LABS: BUN/Creatinine Ratio 4.4; Bilirubin, Total 0.2 mg/dL (0.2-1.0); Calcium 7.5 mg/dL (8.5-10.1); Magnesium 1.8 mg/dL (1.6-2.6); Total Protein 6.4 g/dL (6.4-8.2)
[2022-05-11] MEDS ORDERED: HEPARIN DRIP/D5W 100UNITS/ML 250 ML IV SCH (17:00)
[2022-05-11] MEDS ORDERED: HEPARIN SODIUM (PORCINE) 5000 UNITS/ML 1ML VIAL IV ONE (17:00)
[2022-05-11] MEDS ORDERED: ASPirin 325 MG TAB PO ONE (17:15)
[2022-05-11] MEDS ORDERED: TICAGRELOR 90 MG TAB PO ONE (17:15)
[2022-05-11] MEDS ORDERED: VANCOMYCIN 1GM/250ML 250 ML IV ONE ×3 (17:30→22:00)
[2022-05-11] MEDS ORDERED: CEFEPIME 1GM/ 50ML 50 ML IV ONE ×2 (17:30→22:15)
[2022-05-11] MEDS ORDERED: SODIUM CHLORIDE 0.9% 500 ML IV ONE (17:45)
[2022-05-11] MEDS ORDERED: MAGNESIUM SULFATE 1GM/100ML 100 ML IV ONE (17:45)
[2022-05-11 17:59] LABS: INR 1.03 (0.9-1.15); Partial Thromboplastin Time 29.3 sec (24.6-33.4)
[2022-05-11] MEDS ORDERED: NITROGLYCERIN 0.4 MG SL TAB SL PRN (18:45)
[2022-05-11] MEDS ORDERED: MORPHINE SULFATE INJ 2 MG/ml SYRG IV PRN (18:45)
[2022-05-11] MEDS ORDERED: FUROSEMIDE 20 MG/2 ML VIAL IV ONE (20:15)
[2022-05-11] MEDS ORDERED: DEXTROSE (50%) 50ML SYRG IV PRN (20:15)
[2022-05-12] VITALS (8 sets, daily range): BP systolic 10–111; BP diastolic 57–80
[2022-05-12] MEDS: ACCU-CHEK COMFORT CURVE STRIP VI SCH ×5 (00:26→22:05)
[2022-05-12] MEDS: InsuLIN REG 1unit/0.01ml Soln (100units/ml) SC SCH ×5 (00:29→22:10)
[2022-05-12 01:45] LABS: INR 1.04 (0.9-1.15); Partial Thromboplastin Time 39.6 sec (24.6-33.4)
[2022-05-12] MEDS ORDERED: MIDODRINE HCL 10 MG TAB PO ONE (02:45)
[2022-05-12] MEDS: MIDODRINE HCL 10 MG TAB PO SCH ×3 (06:34→18:17)
[2022-05-12] MEDS: THYROID 60 MG TAB PO SCH ×2 (06:36→06:49)
[2022-05-12 06:59] LABS: Potassium 3.2 mmol/L (3.5-5.1)
[2022-05-12 07:09] LABS: Albumin 1.8 g/dL (3.4-5.0); BUN/Creatinine Ratio 4.6; Bilirubin, Total 0.3 mg/dL (0.2-1.0); Calcium 7.3 mg/dL (8.5-10.1)
[2022-05-12 07:39] LABS: Basophils # (auto) 0.1 10 ^3/uL (0-0.2); Eosinophils # (auto) 0.1 10 ^3/uL (0-0.8); Eosinophils % (auto) 1.1 % (0.0-7.0); Hemoglobin 8.1 g/dL (12.2-16.2); Lymphocytes # (auto) 1.2 10 ^3/uL (0.4-5.4); Monocytes # (auto) 0.5 10 ^3/uL (0-1.3); Neutrophils # (auto) 6.4 10 ^3/uL (1.6-8.6); White Blood Cell 8.3 10^3/uL (4.4-10.8)
[2022-05-12 07:43] LABS: Basophils % (auto) 0.7 % (0.0-2.0); Hematocrit 25.4 % (36.0-46.0); Lymphocytes % (auto) 14.8 % (10.0-50.0); Mean Corpuscular Hgb Conc. 31.8 g/dL (32.0-36.0); Mean Corpuscular Volume 94.2 fL (80.0-100.0); Monocytes % (auto) 6.2 % (0.0-12.0); Neutrophils % (auto) 77.2 % (37.0-80.0); Nucleated Red Blood Cells % 0.2 %; Red Blood Cells 2.69 10^6/uL (4.0-5.20)
[2022-05-12 08:46] LABS: INR 1.08 (0.9-1.15); Partial Thromboplastin Time 47.8 sec (24.6-33.4)
[2022-05-12] MEDS ORDERED: SODIUM CHL 0.9% 1000 ML BAG XX ONE (09:15)
[2022-05-12] MEDS: ASPirin 81 mg TAB PO SCH (09:47)
[2022-05-12] MEDS: SERTRALINE HCL 50 MG TAB PO SCH (09:48)
[2022-05-12] MEDS: TICAGRELOR 90 MG TAB PO SCH ×2 (09:48→22:00)
[2022-05-12] MEDS: HEPARIN DRIP/D5W 100UNITS/ML 250 ML IV SCH ×2 (10:45→21:27)
[2022-05-12] MEDS: ONDANSETRON HCL 4 MG/2 ML VIAL IV PRN ×2 (12:03→18:17)
[2022-05-12] MEDS: LOPERAMIDE HCL 2 MG CAP/TAB PO PRN (13:24)
[2022-05-12] MEDS ORDERED: ACETAMINOPHEN 325 MG TAB PO PRN (17:45)
[2022-05-12] MEDS ORDERED: PANTOPRAZOLE 40 MG/10 ML VIAL INJ IV ONE (17:45)
[2022-05-12 20:46] LABS: INR 1.11 (0.9-1.15)
[2022-05-12] MEDS ORDERED: EPOETIN ALFA-EPBX 10,000 UNIT/1ML VIAL SC ONE (21:00)
[2022-05-12] MEDS: ATORVASTATIN 20 MG TAB PO SCH (22:00)
[2022-05-13 04:10] LABS: INR 1.1 (0.9-1.15); Partial Thromboplastin Time 60.9 sec (24.6-33.4)
[2022-05-13 05:00] VITALS: BP_SYST 103; BP_SYST 161; BP_DIAS 70; BP_DIAS 87
[2022-05-13] MEDS: ONDANSETRON HCL 4 MG/2 ML VIAL IV PRN ×2 (06:30→12:36)
[2022-05-13] MEDS: ACCU-CHEK COMFORT CURVE STRIP VI SCH ×4 (06:35→22:33)
[2022-05-13] MEDS: InsuLIN REG 1unit/0.01ml Soln (100units/ml) SC SCH ×4 (06:35→22:00)
[2022-05-13] MEDS: THYROID 60 MG TAB PO SCH (06:59)
[2022-05-13] MEDS: MIDODRINE HCL 10 MG TAB PO SCH ×3 (06:59→17:59)
[2022-05-13 09:12] VITALS: BP 109/77
[2022-05-13 09:40] LABS: INR 1.11 (0.9-1.15); Partial Thromboplastin Time 60.2 sec (24.6-33.4)
[2022-05-13] MEDS: PANTOPRAZOLE 40 MG/10 ML VIAL INJ IV SCH ×2 (09:46→22:22)
[2022-05-13] MEDS: TICAGRELOR 90 MG TAB PO SCH ×2 (09:47→22:23)
[2022-05-13] MEDS: ASPirin 81 mg TAB PO SCH (09:47)
[2022-05-13] MEDS: SERTRALINE HCL 50 MG TAB PO SCH (09:47)
[2022-05-13 17:12] VITALS: BP 105/71
[2022-05-13] MEDS: VANCOMYCIN HCL 125MG/5ML ORAL SOL PO SCH ×2 (17:59→22:22)
[2022-05-13 22:00] VITALS: BP 107/74
[2022-05-13] MEDS: ATORVASTATIN 20 MG TAB PO SCH (22:24)
[2022-05-14] VITALS (9 sets, daily range): BP systolic 85–113; BP diastolic 61–83
[2022-05-14] MEDS ORDERED: HEPARIN 1,000 UNITS/ml 1ML VIAL IV ONE ×2 (02:15)
[2022-05-14] MEDS ORDERED: SODIUM CHLORIDE 0.9% 1,000 ML IV ONE (02:15)
[2022-05-14] MEDS ORDERED: SODIUM CHL 0.9% 1000 ML BAG XX ONE (02:45)
[2022-05-14] MEDS ORDERED: ALBUMIN 25% 100 ML IV ONE ×2 (03:00)
[2022-05-14] MEDS: VANCOMYCIN HCL 125MG/5ML ORAL SOL PO SCH ×4 (05:31→21:36)
[2022-05-14] MEDS: MIDODRINE HCL 10 MG TAB PO SCH ×3 (05:31→17:35)
[2022-05-14] MEDS: THYROID 60 MG TAB PO SCH (06:19)
[2022-05-14] MEDS: ACCU-CHEK COMFORT CURVE STRIP VI SCH ×4 (06:19→21:50)
[2022-05-14] MEDS: InsuLIN REG 1unit/0.01ml Soln (100units/ml) SC SCH ×4 (06:22→21:50)
[2022-05-14 06:23] LABS: BUN/Creatinine Ratio 4.5; Calcium 8.8 mg/dL (8.5-10.1); Potassium 4.1 mmol/L (3.5-5.1)
[2022-05-14 06:34] LABS: Eosinophils # (auto) 0.1 10 ^3/uL (0-0.8); Hematocrit 26.2 % (36.0-46.0); Hemoglobin 8.4 g/dL (12.2-16.2); Mean Corpuscular Hemoglobin 30.1 pg (28.0-32.0); Mean Corpuscular Hgb Conc. 32.2 g/dL (32.0-36.0); Mean Corpuscular Volume 93.6 fL (80.0-100.0); Monocytes # (auto) 0.5 10 ^3/uL (0-1.3)
[2022-05-14 06:37] LABS: Basophils # (auto) 0 10 ^3/uL (0-0.2); Basophils % (auto) 0.6 % (0.0-2.0); Eosinophils % (auto) 0.9 % (0.0-7.0); Lymphocytes # (auto) 1.2 10 ^3/uL (0.4-5.4); Lymphocytes % (auto) 14.8 % (10.0-50.0); Monocytes % (auto) 6.6 % (0.0-12.0); Neutrophils # (auto) 6.1 10 ^3/uL (1.6-8.6); Neutrophils % (auto) 77.1 % (37.0-80.0); Nucleated Red Blood Cells % 0.3 %; Red Cell Distribution Width 16.5 % (11.8-14.3)
[2022-05-14 08:02] LABS: INR 1.13 (0.9-1.15); Partial Thromboplastin Time 31.7 sec (24.6-33.4)
[2022-05-14] MEDS: PANTOPRAZOLE 40 MG/10 ML VIAL INJ IV SCH ×2 (10:00→21:36)
[2022-05-14] MEDS: SERTRALINE HCL 50 MG TAB PO SCH (10:00)
[2022-05-14] MEDS: TICAGRELOR 90 MG TAB PO SCH ×2 (10:00→21:36)
[2022-05-14] MEDS: ASPirin 81 mg TAB PO SCH (10:00)
[2022-05-14] MEDS ORDERED: IODIXANOL 320MG/ML 100ML BTL IV ONE (11:01)
[2022-05-14] MEDS ORDERED: LIDOCAINE 2%HCL (LOCAL ANESTH.) INJ 20ML MDV ONE (11:01)
[2022-05-14] MEDS ORDERED: HEPARIN SODIUM (PORCINE) 5000 UNITS/ML 1ML VIAL ONE (11:39)
[2022-05-14] MEDS ORDERED: VERAPAMIL 2.5MG/ML INJ 2ML VIAL IV ONE (11:40)
[2022-05-14] MEDS ORDERED: fentaNYL CITRATE 100 MCG/2 ML VL ONE (11:40)
[2022-05-14] MEDS ORDERED: MIDAZOLAM HCL 2MG/2ML 2ml VIAL (1mg/ml) ONE (11:40)
[2022-05-14] MEDS ORDERED: SODIUM CHL 0.9% 50 ML ONE (12:05)
[2022-05-14] MEDS ORDERED: ANGIOMAX 250 MG VIAL IV ONE (12:05)
[2022-05-14] MEDS ORDERED: TICAGRELOR 90 MG TAB ONE (12:21)
[2022-05-14] MEDS: ATORVASTATIN 20 MG TAB PO SCH (21:37)
[2022-05-15 05:00] VITALS: BP 112/72
[2022-05-15] MEDS: THYROID 60 MG TAB PO SCH (05:28)
[2022-05-15] MEDS: VANCOMYCIN HCL 125MG/5ML ORAL SOL PO SCH ×4 (05:28→21:46)
[2022-05-15] MEDS: MIDODRINE HCL 10 MG TAB PO SCH ×3 (05:28→18:34)
[2022-05-15] MEDS: InsuLIN REG 1unit/0.01ml Soln (100units/ml) SC SCH ×4 (05:29→21:47)
[2022-05-15] MEDS: ACCU-CHEK COMFORT CURVE STRIP VI SCH ×4 (05:29→21:47)
[2022-05-15] MEDS ORDERED: SODIUM CHL 0.9% 1000 ML BAG XX ONE (07:00)
[2022-05-15 09:00] VITALS: BP 95/62
[2022-05-15] MEDS: PANTOPRAZOLE 40 MG/10 ML VIAL INJ IV SCH ×2 (10:00→21:46)
[2022-05-15] MEDS: TICAGRELOR 90 MG TAB PO SCH ×2 (10:33→21:46)
[2022-05-15] MEDS: ASPirin 81 mg TAB PO SCH (10:33)
[2022-05-15] MEDS: SERTRALINE HCL 50 MG TAB PO SCH (10:33)
[2022-05-15] MEDS: LOPERAMIDE HCL 2 MG CAP/TAB PO PRN ×2 (10:35→11:13)
[2022-05-15] MEDS ORDERED: ERGOCALCIFEROL 50,000 UNIT(1.25MG) CAP PO SCH (11:00)
[2022-05-15] MEDS ORDERED: TICA90TA PO (11:49)
[2022-05-15] MEDS ORDERED: ASPI-325 PO (11:49)
[2022-05-15] MEDS ORDERED: VANC125PO PO (11:49)
[2022-05-15] MEDS ORDERED: CHL4PW PO (11:49)
[2022-05-15] MEDS: CHOLESTYRAMINE 4 GM POWDER PO SCH ×3 (12:05→22:00)
[2022-05-15 13:00] VITALS: BP 114/73
[2022-05-15 17:00] VITALS: BP 133/77
[2022-05-15] MEDS ORDERED: EPOETIN ALFA-EPBX 10,000 UNIT/1ML VIAL SC ONE (21:00)
[2022-05-15] MEDS: ATORVASTATIN 20 MG TAB PO SCH (21:46)
[2022-05-15 22:00] VITALS: BP 108/71
[2022-05-15] MEDS: ONDANSETRON HCL 4 MG/2 ML VIAL IV PRN (22:31)
[2022-05-16 05:00] VITALS: BP 111/77
[2022-05-16] MEDS: VANCOMYCIN HCL 125MG/5ML ORAL SOL PO SCH ×4 (05:12→21:32)
[2022-05-16] MEDS: THYROID 60 MG TAB PO SCH (05:12)
[2022-05-16] MEDS: MIDODRINE HCL 10 MG TAB PO SCH ×3 (05:12→18:15)
[2022-05-16] MEDS: InsuLIN REG 1unit/0.01ml Soln (100units/ml) SC SCH ×4 (05:28→21:38)
[2022-05-16] MEDS: ACCU-CHEK COMFORT CURVE STRIP VI SCH ×4 (05:28→21:38)
[2022-05-16] MEDS: CHOLESTYRAMINE 4 GM POWDER PO SCH ×2 (05:41→12:00)
[2022-05-16 09:00] VITALS: BP 117/78
[2022-05-16] MEDS: PANTOPRAZOLE 40 MG/10 ML VIAL INJ IV SCH ×2 (10:27→21:31)
[2022-05-16] MEDS: TICAGRELOR 90 MG TAB PO SCH ×2 (10:27→21:32)
[2022-05-16] MEDS: ASPirin 81 mg TAB PO SCH (10:27)
[2022-05-16] MEDS: SERTRALINE HCL 50 MG TAB PO SCH (10:28)
[2022-05-16 13:00] VITALS: BP 104/71
[2022-05-16] MEDS ORDERED: CHOLESTYRAMINE 4 GM POWDER PO SCH (16:15)
[2022-05-16 17:00] VITALS: BP 114/79
[2022-05-16 20:14] VITALS: BP 104/71
[2022-05-16] MEDS: ATORVASTATIN 20 MG TAB PO SCH (21:32)
[2022-05-16 21:59] VITALS: BP 104/71
[2022-05-17 04:51] VITALS: BP 104/73
[2022-05-17] MEDS: VANCOMYCIN HCL 125MG/5ML ORAL SOL PO SCH ×3 (05:36→18:21)
[2022-05-17] MEDS: MIDODRINE HCL 10 MG TAB PO SCH ×3 (05:37→18:20)
[2022-05-17] MEDS: THYROID 60 MG TAB PO SCH (05:37)
[2022-05-17] MEDS: ACCU-CHEK COMFORT CURVE STRIP VI SCH ×3 (05:48→17:00)
[2022-05-17] MEDS: InsuLIN REG 1unit/0.01ml Soln (100units/ml) SC SCH ×3 (06:34→17:00)
[2022-05-17] MEDS ORDERED: SODIUM CHL 0.9% 1000 ML BAG XX ONE (07:00)
[2022-05-17 09:00] VITALS: BP 99/57
[2022-05-17 13:00] VITALS: BP 93/63
[2022-05-17] MEDS: SERTRALINE HCL 50 MG TAB PO SCH (16:07)
[2022-05-17] MEDS: TICAGRELOR 90 MG TAB PO SCH (16:07)
[2022-05-17] MEDS: ASPirin 81 mg TAB PO SCH (16:08)
[2022-05-17] MEDS: PANTOPRAZOLE 40 MG/10 ML VIAL INJ IV SCH (16:08)
[2022-05-17 16:29] VITALS: BP 98/61
[2022-05-17] MEDS ORDERED: EPOETIN ALFA-EPBX 10,000 UNIT/1ML VIAL SC ONE (21:00)
[2022-05-18] MEDS ORDERED: CLOP75TA70 PO (10:48)
== END 2022-05-17 21:15 | disposition home health service (06) | DRG 174 ==
LOC: EDBD 13:45 → EDUNIT# 13:45 → ER 13:52 → TELE 18:33 → TELE-WESTW 05-12 02:23
PROVIDERS: ADMIT Nurse Practitioner Family; ATTEND Hospitalist
PROC: 02703ZZ Dilation of Coronary Artery, One Artery, Percutaneous Approach (ICD-10-PCS; principal; 2022-05-14)
PROC: B211YZZ Fluoroscopy of Multiple Coronary Arteries using Other Contrast (ICD-10-PCS; 2022-05-14)
PROC: 5A1D70Z Performance of Urinary Filtration, Intermittent, Less than 6 Hours Per Day (ICD-10-PCS; 2022-05-14)
PROC: 5A1D70Z Performance of Urinary Filtration, Intermittent, Less than 6 Hours Per Day (ICD-10-PCS; 2022-05-15)
PROC: 5A1D70Z Performance of Urinary Filtration, Intermittent, Less than 6 Hours Per Day (ICD-10-PCS; 2022-05-17)
DX: I21.4 Non-ST elevation (NSTEMI) myocardial infarction (principal); N17.9 Acute kidney failure, unspecified; I13.2 Hypertensive heart and chronic kidney disease with heart failure and with stage 5 chronic kidney disease, or end stage renal disease; A04.72 Enterocolitis due to Clostridium difficile, not specified as recurrent; E44.0 Moderate protein-calorie malnutrition; D63.1 Anemia in chronic kidney disease; N18.6 End stage renal disease; R62.7 Adult failure to thrive; I50.9 Heart failure, unspecified; E11.22 Type 2 diabetes mellitus with diabetic chronic kidney disease; E86.0 Dehydration; N39.0 Urinary tract infection, site not specified; E87.6 Hypokalemia; I25.10 Atherosclerotic heart disease of native coronary artery without angina pectoris; E03.9 Hypothyroidism, unspecified; E78.5 Hyperlipidemia, unspecified; Z20.822 Contact with and (suspected) exposure to COVID-19; R74.01 Elevation of levels of liver transaminase levels; R79.89 Other specified abnormal findings of blood chemistry; R54 Age-related physical debility; E55.9 Vitamin D deficiency, unspecified; Z74.01 Bed confinement status; Z68.23 Body mass index [BMI] 23.0-23.9, adult; I25.2 Old myocardial infarction; Z79.899 Other long term (current) drug therapy; Z83.3 Family history of diabetes mellitus; Z90.710 Acquired absence of both cervix and uterus; Z98.891 History of uterine scar from previous surgery; Z99.2 Dependence on renal dialysis
CPT/HCPCS: 36415; 36600; 71045; 80048; 80053; 82040; 82306; 82805; 82962; 83605; 83735; 83880; 83970; 84100; 84484; 85025; 85610; 85730; 87040; 87081; 87493; 90935; 92920; 93005; 93454; 96365; 96366; 96368; 96375; 99152; 99153; 99291; C9113; G0378; J1642; J1815; J2250; J2405; P9047; Q9967

== ENCOUNTER 2022-06-02 14:28 | Inpatient (IN) | payer MEDICAID ==
[~2022-06-02] VITALS: Ht 162.6 cm; Wt 49.6 kg
[~2022-06-02 14:28] MED LIST changes: -AMPI500C8 PO; -ASCO500T11 PO; +ASPI-325 PO; +CLOP75TA70 PO; -FLUC100T34 PO; -FOLI1TAB6 PO; -LISI-275 PO; +VANC125PO PO
[2022-06-02] MEDS: NOREPINEPHRINE 8 MG/250ML KIT 250 ML IV SCH (14:40)
[2022-06-02] MEDS ORDERED: SODIUM CHLORIDE 0.9% 500 ML IV ONE (15:00)
[2022-06-02] MEDS ORDERED: IOHEXOL 300 MG/ML 100ML BOTTLE IJ ONE (15:45)
[2022-06-02 16:26] LABS: Basophils # (auto) 0.1 10 ^3/uL (0-0.2); Basophils % (auto) 0.7 % (0.0-2.0); Eosinophils # (auto) 0.3 10 ^3/uL (0-0.8); Eosinophils % (auto) 4.3 % (0.0-7.0); Hematocrit 34.5 % (36.0-46.0); Hemoglobin 10.9 g/dL (12.2-16.2); Lymphocytes # (auto) 0.9 10 ^3/uL (0.4-5.4); Lymphocytes % (auto) 11.7 % (10.0-50.0); Mean Corpuscular Hemoglobin 30.1 pg (28.0-32.0); Mean Corpuscular Hgb Conc. 31.5 g/dL (32.0-36.0); Mean Corpuscular Volume 95.5 fL (80.0-100.0); Monocytes # (auto) 0.4 10 ^3/uL (0-1.3); Monocytes % (auto) 4.8 % (0.0-12.0); Neutrophils % (auto) 78.5 % (37.0-80.0); Nucleated Red Blood Cells % 0.1 %; Red Blood Cells 3.61 10^6/uL (4.0-5.20); Red Cell Distribution Width 18.4 % (11.8-14.3); White Blood Cell 7.6 10^3/uL (4.4-10.8)
[2022-06-02 16:40] LABS: Albumin 2.5 g/dL (3.4-5.0); Calcium 8.3 mg/dL (8.5-10.1); Magnesium 2.5 mg/dL (1.6-2.6); Potassium 3.2 mmol/L (3.5-5.1)
[2022-06-02 16:44] LABS: Bilirubin, Total 0.4 mg/dL (0.2-1.0); Total Protein 7.6 g/dL (6.4-8.2)
[2022-06-02] MEDS ORDERED: IBUPROFEN 400 MG TAB PO PRN (23:00)
[2022-06-02] MEDS ORDERED: DOCUSATE SOD 100 MG CAP PO PRN (23:00)
[2022-06-02] MEDS ORDERED: DEXTROSE (50%) 50ML SYRG IV PRN (23:00)
[2022-06-03] VITALS (69 sets, daily range): BP systolic 69–140; BP diastolic 46–88
[2022-06-03] MEDS ORDERED: NITROGLYCERIN 0.4 MG SL TAB SL PRN
[2022-06-03] MEDS ORDERED: MORPHINE SULFATE INJ 2 MG/ml SYRG IV PRN
[2022-06-03] MEDS: InsuLIN REG 1unit/0.01ml Soln (100units/ml) SC SCH ×4 (07:00→22:00)
[2022-06-03 07:32] LABS: Basophils # (auto) 0.1 10 ^3/uL (0-0.2); Basophils % (auto) 0.7 % (0.0-2.0); Eosinophils # (auto) 0.4 10 ^3/uL (0-0.8); Eosinophils % (auto) 4.6 % (0.0-7.0); Hematocrit 32.9 % (36.0-46.0); Hemoglobin 10.5 g/dL (12.2-16.2); Lymphocytes # (auto) 1.7 10 ^3/uL (0.4-5.4); Lymphocytes % (auto) 19.4 % (10.0-50.0); Mean Corpuscular Hemoglobin 30.2 pg (28.0-32.0); Mean Corpuscular Hgb Conc. 31.8 g/dL (32.0-36.0); Mean Corpuscular Volume 94.8 fL (80.0-100.0); Monocytes # (auto) 0.5 10 ^3/uL (0-1.3); Neutrophils % (auto) 69.3 % (37.0-80.0); Nucleated Red Blood Cells % 0.1 %; Red Blood Cells 3.47 10^6/uL (4.0-5.20); Red Cell Distribution Width 18.5 % (11.8-14.3); White Blood Cell 8.7 10^3/uL (4.4-10.8)
[2022-06-03] MEDS: SODIUM CHLOR 0.9% PF (SALINE LOCK) 10ML VIAL/SYR IV SCH ×3 (07:47→22:20)
[2022-06-03] MEDS: ACCU-CHEK COMFORT CURVE STRIP VI SCH ×4 (07:47→22:19)
[2022-06-03 08:01] LABS: Albumin 2.3 g/dL (3.4-5.0); BUN/Creatinine Ratio 5.5
[2022-06-03 08:04] LABS: Bilirubin, Total 0.3 mg/dL (0.2-1.0); Total Protein 7.4 g/dL (6.4-8.2)
[2022-06-03 08:17] LABS: Potassium 2.8 mmol/L (3.5-5.1)
[2022-06-03] MEDS: POTASSIUM CHL 20MEQ/100ML 100 ML IV SCH ×2 (09:22→12:56)
[2022-06-03] MEDS: FAMOTIDINE (10MG/ML) 2ML VL IV SCH ×2 (09:22→22:19)
[2022-06-03] MEDS: SEVELAMER 800 MG TAB PO SCH ×3 (09:22→17:42)
[2022-06-03] MEDS: B-COMPLEX W/ C & FOLIC ACID(NEPHROVITE TAB) PO SCH (09:22)
[2022-06-03] MEDS: ASPirin 81 mg TAB PO SCH (09:23)
[2022-06-03] MEDS ORDERED: CLOPIDOGREL BISULFATE 75 MG TAB PO SCH (10:00)
[2022-06-03] MEDS: NOREPINEPHRINE 8 MG/250ML KIT 250 ML IV SCH (14:50)
[2022-06-03] MEDS ORDERED: CHL4PW PO (16:19)
[2022-06-03] MEDS ORDERED: POTASSIUM CHL 20 Meq TABLET PO ONE ×2 (17:30→17:42)
[2022-06-03] MEDS: MIDODRINE HCL 10 MG TAB PO SCH (17:42)
[2022-06-03] MEDS ORDERED: TICAGRELOR 90 MG TAB PO SCH (22:00)
[2022-06-03] MEDS: ATORVASTATIN 20 MG TAB PO SCH ×2 (22:19→22:27)
[2022-06-03] MEDS ORDERED: CHOLESTYRAMINE 4 GM POWDER PO SCH (23:00)
[2022-06-04] VITALS (92 sets, daily range): BP systolic 70–121; BP diastolic 46–83
[2022-06-04 05:01] LABS: Cholesterol 96 mg/dL (< 200)
[2022-06-04 05:05] LABS: HDL Cholesterol 50 mg/dL (40-59); LDL Cholesterol 37 mg/dL (< 100); Triglycerides 137 mg/dL (< 150)
[2022-06-04] MEDS: MIDODRINE HCL 10 MG TAB PO SCH ×3 (06:41→17:59)
[2022-06-04] MEDS: ACCU-CHEK COMFORT CURVE STRIP VI SCH ×4 (06:41→22:16)
[2022-06-04] MEDS: SODIUM CHLOR 0.9% PF (SALINE LOCK) 10ML VIAL/SYR IV SCH ×3 (06:41→22:16)
[2022-06-04] MEDS: InsuLIN REG 1unit/0.01ml Soln (100units/ml) SC SCH ×4 (06:42→22:00)
[2022-06-04] MEDS ORDERED: SODIUM CHL 0.9% 1000 ML BAG XX ONE (07:00)
[2022-06-04] MEDS: SEVELAMER 800 MG TAB PO SCH ×3 (08:41→17:59)
[2022-06-04] MEDS: CLOPIDOGREL BISULFATE 75 MG TAB PO SCH (10:13)
[2022-06-04] MEDS: PANTOPRAZOLE 40 MG/10 ML VIAL INJ IV SCH (10:13)
[2022-06-04] MEDS: B-COMPLEX W/ C & FOLIC ACID(NEPHROVITE TAB) PO SCH (10:13)
[2022-06-04] MEDS: ASPirin 81 mg TAB PO SCH (10:14)
[2022-06-04 10:17] LABS: Anion Gap 11 (5-15); BUN/Creatinine Ratio 6.1; Blood Urea Nitrogen 41 mg/dL (7-18); Calcium 8.4 mg/dL (8.5-10.1); Carbon Dioxide 12 mmol/L (21-32); Chloride 116 mmol/L (98-107); GFR African American 8 mL/min; GFR Non-African American 7 mL/min; Glucose 129 mg/dL (74-106); Potassium 4.1 mmol/L (3.5-5.1); Sodium 139 mmol/L (136-145)
[2022-06-04] MEDS: SODIUM CHLORIDE 0.9% 1,000 ML IV SCH ×2 (12:30→13:55)
[2022-06-04] MEDS: CHOLESTYRAMINE 4 GM POWDER PO SCH (13:53)
[2022-06-04] MEDS: NOREPINEPHRINE 8 MG/250ML KIT 250 ML IV SCH (14:50)
[2022-06-04] MEDS ORDERED: EPOETIN ALFA-EPBX 10,000 UNIT/1ML VIAL SC ONE (21:00)
[2022-06-04] MEDS: ATORVASTATIN 20 MG TAB PO SCH (22:15)
[2022-06-04] MEDS: SODIUM BICARBONATE 650 MG TAB PO SCH (22:16)
[2022-06-04] MEDS: ONDANSETRON HCL 4 MG/2 ML VIAL IV PRN (22:23)
[2022-06-05] VITALS (90 sets, daily range): BP systolic 67–146; BP diastolic 38–92
[2022-06-05] MEDS: CHOLESTYRAMINE 4 GM POWDER PO SCH ×2 (01:35→14:49)
[2022-06-05 04:41] LABS: Calcium 8.2 mg/dL (8.5-10.1); Potassium 4.7 mmol/L (3.5-5.1)
[2022-06-05 04:42] LABS: BUN/Creatinine Ratio 6.3
[2022-06-05] MEDS: MIDODRINE HCL 10 MG TAB PO SCH ×3 (06:06→17:34)
[2022-06-05] MEDS: metroNIDAZOLE 500 MG TAB PO SCH ×2 (06:06→13:48)
[2022-06-05] MEDS: SODIUM BICARBONATE 650 MG TAB PO SCH ×2 (06:07→13:48)
[2022-06-05] MEDS: ONDANSETRON HCL 4 MG/2 ML VIAL IV PRN (06:07)
[2022-06-05] MEDS: SODIUM CHLOR 0.9% PF (SALINE LOCK) 10ML VIAL/SYR IV SCH ×3 (06:08→22:34)
[2022-06-05] MEDS: ACCU-CHEK COMFORT CURVE STRIP VI SCH ×4 (06:49→22:33)
[2022-06-05] MEDS: InsuLIN REG 1unit/0.01ml Soln (100units/ml) SC SCH ×4 (06:49→22:53)
[2022-06-05] MEDS: SEVELAMER 800 MG TAB PO SCH ×3 (08:46→18:22)
[2022-06-05] MEDS: SODIUM BICARBONATE 50ML VIAL 150 ML in D5W 5% 1,000 ML IV SCH (10:00)
[2022-06-05] MEDS: SODIUM BICARBONATE 8.4 % INJ 50ML VIAL IV SCH ×2 (10:30→13:12)
[2022-06-05] MEDS: PANTOPRAZOLE 40 MG/10 ML VIAL INJ IV SCH (10:32)
[2022-06-05] MEDS: CLOPIDOGREL BISULFATE 75 MG TAB PO SCH (10:33)
[2022-06-05] MEDS: ASPirin 81 mg TAB PO SCH (10:33)
[2022-06-05] MEDS: B-COMPLEX W/ C & FOLIC ACID(NEPHROVITE TAB) PO SCH (10:33)
[2022-06-05] MEDS ORDERED: SODIUM BICARBONATE 8.4 % INJ 50ML VIAL IV SCH (14:00)
[2022-06-05] MEDS: NOREPINEPHRINE 8 MG/250ML KIT 250 ML IV SCH (14:50)
[2022-06-05] MEDS ORDERED: SODIUM BICARBONATE 650 MG TAB PO SCH (22:00)
[2022-06-05] MEDS: metroNIDAZOLE 500MG/100ML 100 ML IV SCH (22:31)
[2022-06-05] MEDS: ATORVASTATIN 20 MG TAB PO SCH (22:32)
[2022-06-05] MEDS: FLORASTOR (S. BOULARDII) 250 MG CAP PO SCH (22:33)
[2022-06-05] MEDS: VANCOMYCIN HCL 125MG/5ML ORAL SOL PO SCH (22:33)
[2022-06-06] VITALS (88 sets, daily range): BP systolic 64–146; BP diastolic 40–95
[2022-06-06] MEDS: CHOLESTYRAMINE 4 GM POWDER PO SCH ×2 (01:13→14:26)
[2022-06-06] MEDS: SODIUM BICARBONATE 50ML VIAL 150 ML in D5W 5% 1,000 ML IV SCH (04:34)
[2022-06-06] MEDS ORDERED: ALBUMIN 25% 0 ML IV ONE (06:24)
[2022-06-06] MEDS: InsuLIN REG 1unit/0.01ml Soln (100units/ml) SC SCH ×4 (06:51→22:00)
[2022-06-06] MEDS: ACCU-CHEK COMFORT CURVE STRIP VI SCH ×4 (06:51→22:28)
[2022-06-06] MEDS ORDERED: SODIUM CHL 0.9% 1000 ML BAG XX ONE (07:00)
[2022-06-06] MEDS: metroNIDAZOLE 500MG/100ML 100 ML IV SCH ×3 (09:22→22:28)
[2022-06-06] MEDS: VANCOMYCIN HCL 125MG/5ML ORAL SOL PO SCH ×4 (09:23→22:46)
[2022-06-06] MEDS: FLORASTOR (S. BOULARDII) 250 MG CAP PO SCH ×2 (09:23→22:28)
[2022-06-06] MEDS: PANTOPRAZOLE 40 MG/10 ML VIAL INJ IV SCH (09:23)
[2022-06-06] MEDS: ASPirin 81 mg TAB PO SCH (09:23)
[2022-06-06] MEDS: B-COMPLEX W/ C & FOLIC ACID(NEPHROVITE TAB) PO SCH (09:23)
[2022-06-06] MEDS: MIDODRINE HCL 10 MG TAB PO SCH ×3 (09:23→18:51)
[2022-06-06] MEDS: SODIUM CHLOR 0.9% PF (SALINE LOCK) 10ML VIAL/SYR IV SCH ×3 (09:23→22:28)
[2022-06-06] MEDS: SEVELAMER 800 MG TAB PO SCH ×3 (09:23→18:51)
[2022-06-06] MEDS: CLOPIDOGREL BISULFATE 75 MG TAB PO SCH (09:24)
[2022-06-06 11:28] LABS: BUN/Creatinine Ratio 4.5; Calcium 7.5 mg/dL (8.5-10.1); Potassium 3.5 mmol/L (3.5-5.1)
[2022-06-06] MEDS: NOREPINEPHRINE 8 MG/250ML KIT 250 ML IV SCH (14:50)
[2022-06-06] MEDS ORDERED: POTASSIUM PHOSPHATE 22 MEQ in SODIUM CHL 0.9% 100 ML IV ONE (18:30)
[2022-06-06] MEDS ORDERED: EPOETIN ALFA-EPBX 10,000 UNIT/1ML VIAL SC ONE (21:00)
[2022-06-06] MEDS: ATORVASTATIN 20 MG TAB PO SCH (22:28)
[2022-06-07] VITALS (20 sets, daily range): BP systolic 84–127; BP diastolic 50–90
[2022-06-07] MEDS: CHOLESTYRAMINE 4 GM POWDER PO SCH ×2 (01:27→14:01)
[2022-06-07 04:25] LABS: Basophils # (auto) 0.1 10 ^3/uL (0-0.2); Eosinophils # (auto) 0.2 10 ^3/uL (0-0.8); Eosinophils % (auto) 2.5 % (0.0-7.0); Hematocrit 32.7 % (36.0-46.0); Hemoglobin 10.3 g/dL (12.2-16.2); Lymphocytes # (auto) 1.4 10 ^3/uL (0.4-5.4); Mean Corpuscular Hemoglobin 29.7 pg (28.0-32.0); Mean Corpuscular Hgb Conc. 31.5 g/dL (32.0-36.0); Mean Corpuscular Volume 94.3 fL (80.0-100.0); Monocytes # (auto) 0.5 10 ^3/uL (0-1.3); Monocytes % (auto) 7.7 % (0.0-12.0); Neutrophils # (auto) 4.6 10 ^3/uL (1.6-8.6); Neutrophils % (auto) 67.8 % (37.0-80.0); Nucleated Red Blood Cells % 0.1 %; Red Blood Cells 3.47 10^6/uL (4.0-5.20); Red Cell Distribution Width 18.2 % (11.8-14.3); White Blood Cell 6.8 10^3/uL (4.4-10.8)
[2022-06-07 04:48] LABS: BUN/Creatinine Ratio 4.9; Calcium 7.3 mg/dL (8.5-10.1); Magnesium 1.9 mg/dL (1.6-2.6); Potassium 3.3 mmol/L (3.5-5.1)
[2022-06-07] MEDS: SODIUM CHLOR 0.9% PF (SALINE LOCK) 10ML VIAL/SYR IV SCH ×3 (05:34→22:15)
[2022-06-07] MEDS: metroNIDAZOLE 500MG/100ML 100 ML IV SCH ×3 (05:34→22:01)
[2022-06-07] MEDS: MIDODRINE HCL 10 MG TAB PO SCH ×3 (05:35→18:01)
[2022-06-07] MEDS: VANCOMYCIN HCL 125MG/5ML ORAL SOL PO SCH ×4 (05:40→22:15)
[2022-06-07] MEDS: InsuLIN REG 1unit/0.01ml Soln (100units/ml) SC SCH ×4 (06:37→22:00)
[2022-06-07] MEDS: ACCU-CHEK COMFORT CURVE STRIP VI SCH ×4 (06:37→22:16)
[2022-06-07] MEDS: SEVELAMER 800 MG TAB PO SCH ×3 (08:00→18:01)
[2022-06-07] MEDS ORDERED: SODIUM CHL 0.9% 1000 ML BAG XX ONE (10:45)
[2022-06-07] MEDS ORDERED: ALBUMIN 25% 100 ML IV PRN (10:45)
[2022-06-07] MEDS: FLORASTOR (S. BOULARDII) 250 MG CAP PO SCH ×2 (12:18→22:03)
[2022-06-07] MEDS: ASPirin 81 mg TAB PO SCH (12:18)
[2022-06-07] MEDS: B-COMPLEX W/ C & FOLIC ACID(NEPHROVITE TAB) PO SCH (12:18)
[2022-06-07] MEDS: CLOPIDOGREL BISULFATE 75 MG TAB PO SCH (12:18)
[2022-06-07] MEDS ORDERED: EPOETIN ALFA-EPBX 10,000 UNIT/1ML VIAL SC ONE (21:00)
[2022-06-07] MEDS: ATORVASTATIN 20 MG TAB PO SCH (22:03)
[2022-06-08] MEDS: CHOLESTYRAMINE 4 GM POWDER PO SCH ×2 (00:23→12:41)
[2022-06-08 05:00] VITALS: BP 110/74
[2022-06-08] MEDS: SODIUM CHLOR 0.9% PF (SALINE LOCK) 10ML VIAL/SYR IV SCH ×3 (05:41→22:58)
[2022-06-08] MEDS: MIDODRINE HCL 10 MG TAB PO SCH ×3 (05:41→18:05)
[2022-06-08] MEDS: metroNIDAZOLE 500MG/100ML 100 ML IV SCH ×3 (05:41→22:56)
[2022-06-08] MEDS: VANCOMYCIN HCL 125MG/5ML ORAL SOL PO SCH ×4 (05:42→22:57)
[2022-06-08] MEDS: InsuLIN REG 1unit/0.01ml Soln (100units/ml) SC SCH ×4 (06:47→22:00)
[2022-06-08] MEDS: ACCU-CHEK COMFORT CURVE STRIP VI SCH ×4 (06:48→22:01)
[2022-06-08] MEDS: SEVELAMER 800 MG TAB PO SCH ×3 (08:33→18:05)
[2022-06-08 09:23] VITALS: BP 110/77
[2022-06-08] MEDS: FLORASTOR (S. BOULARDII) 250 MG CAP PO SCH ×2 (10:54→22:57)
[2022-06-08] MEDS: ASPirin 81 mg TAB PO SCH (10:54)
[2022-06-08] MEDS: B-COMPLEX W/ C & FOLIC ACID(NEPHROVITE TAB) PO SCH (10:54)
[2022-06-08] MEDS: CLOPIDOGREL BISULFATE 75 MG TAB PO SCH (10:54)
[2022-06-08] MEDS ORDERED: HYDROcodone-ACET 5/325MG TAB PO PRN (11:45)
[2022-06-08 13:00] VITALS: BP 126/86
[2022-06-08 17:24] VITALS: BP 107/74
[2022-06-08] MEDS: ONDANSETRON HCL 4 MG/2 ML VIAL IV PRN ×2 (18:06→22:58)
[2022-06-08 19:55] LABS: BUN/Creatinine Ratio 3.9; Calcium 7.4 mg/dL (8.5-10.1); Magnesium 2.1 mg/dL (1.6-2.6); Potassium 3.2 mmol/L (3.5-5.1)
[2022-06-08 22:00] VITALS: BP 104/74
[2022-06-08] MEDS: ATORVASTATIN 20 MG TAB PO SCH (22:57)
[2022-06-09] MEDS ORDERED: POTASSIUM CHL 20 Meq TABLET PO ONE (00:15)
[2022-06-09] MEDS: CHOLESTYRAMINE 4 GM POWDER PO SCH ×2 (00:39→13:06)
[2022-06-09 05:00] VITALS: BP 107/77
[2022-06-09] MEDS: metroNIDAZOLE 500MG/100ML 100 ML IV SCH ×3 (05:55→22:30)
[2022-06-09] MEDS: MIDODRINE HCL 10 MG TAB PO SCH ×3 (05:55→18:00)
[2022-06-09] MEDS: VANCOMYCIN HCL 125MG/5ML ORAL SOL PO SCH ×4 (05:56→22:00)
[2022-06-09] MEDS: ACCU-CHEK COMFORT CURVE STRIP VI SCH ×4 (05:56→22:00)
[2022-06-09] MEDS: SODIUM CHLOR 0.9% PF (SALINE LOCK) 10ML VIAL/SYR IV SCH ×3 (05:57→22:31)
[2022-06-09] MEDS: InsuLIN REG 1unit/0.01ml Soln (100units/ml) SC SCH ×4 (06:10→22:00)
[2022-06-09 08:00] LABS: Potassium 3.4 mmol/L (3.5-5.1)
[2022-06-09 08:05] LABS: BUN/Creatinine Ratio 4.5; Calcium 7.8 mg/dL (8.5-10.1)
[2022-06-09 09:09] VITALS: BP 114/82
[2022-06-09] MEDS ORDERED: POTASSIUM EFFERVESENT TAB 25 MEQ PO ONE (11:00)
[2022-06-09] MEDS: SEVELAMER 800 MG TAB PO SCH ×3 (12:00→18:00)
[2022-06-09] MEDS: ASPirin 81 mg TAB PO SCH (12:36)
[2022-06-09] MEDS: CLOPIDOGREL BISULFATE 75 MG TAB PO SCH (12:36)
[2022-06-09] MEDS: B-COMPLEX W/ C & FOLIC ACID(NEPHROVITE TAB) PO SCH (12:36)
[2022-06-09] MEDS: FLORASTOR (S. BOULARDII) 250 MG CAP PO SCH ×2 (12:36→22:29)
[2022-06-09 16:42] VITALS: BP 110/75
[2022-06-09 22:00] VITALS: BP 104/71
[2022-06-09] MEDS: ATORVASTATIN 20 MG TAB PO SCH (22:30)
[2022-06-10] MEDS: CHOLESTYRAMINE 4 GM POWDER PO SCH ×2 (01:03→13:00)
[2022-06-10] MEDS: HEPARIN SODIUM (PORCINE) 5000 UNITS/ML 1ML VIAL SC SCH ×2 (03:19→22:05)
[2022-06-10 05:00] VITALS: BP 100/64
[2022-06-10] MEDS: MIDODRINE HCL 10 MG TAB PO SCH ×3 (05:34→18:00)
[2022-06-10] MEDS: SODIUM CHLOR 0.9% PF (SALINE LOCK) 10ML VIAL/SYR IV SCH ×3 (05:35→21:52)
[2022-06-10] MEDS: VANCOMYCIN HCL 125MG/5ML ORAL SOL PO SCH ×4 (05:35→21:52)
[2022-06-10] MEDS: metroNIDAZOLE 500MG/100ML 100 ML IV SCH ×3 (05:35→21:51)
[2022-06-10] MEDS: ACCU-CHEK COMFORT CURVE STRIP VI SCH ×4 (06:42→21:52)
[2022-06-10] MEDS: InsuLIN REG 1unit/0.01ml Soln (100units/ml) SC SCH ×4 (06:43→21:52)
[2022-06-10 07:08] LABS: BUN/Creatinine Ratio 2.7; Calcium 7.3 mg/dL (8.5-10.1); Potassium 3.8 mmol/L (3.5-5.1)
[2022-06-10 07:25] LABS: Basophils # (auto) 0.1 10 ^3/uL (0-0.2); Basophils % (auto) 0.9 % (0.0-2.0); Eosinophils # (auto) 0.1 10 ^3/uL (0-0.8); Eosinophils % (auto) 0.7 % (0.0-7.0); Hematocrit 30.2 % (36.0-46.0); Hemoglobin 9.7 g/dL (12.2-16.2); Lymphocytes # (auto) 1.8 10 ^3/uL (0.4-5.4); Lymphocytes % (auto) 23.7 % (10.0-50.0); Mean Corpuscular Hgb Conc. 32.2 g/dL (32.0-36.0); Mean Corpuscular Volume 96.2 fL (80.0-100.0); Monocytes # (auto) 0.4 10 ^3/uL (0-1.3); Monocytes % (auto) 5.6 % (0.0-12.0); Neutrophils # (auto) 5.3 10 ^3/uL (1.6-8.6); Neutrophils % (auto) 69.1 % (37.0-80.0); Nucleated Red Blood Cells % 0.2 %; Red Blood Cells 3.14 10^6/uL (4.0-5.20); Red Cell Distribution Width 18.2 % (11.8-14.3); White Blood Cell 7.7 10^3/uL (4.4-10.8)
[2022-06-10] MEDS: SEVELAMER 800 MG TAB PO SCH ×3 (08:28→18:00)
[2022-06-10] MEDS: POTASSIUM EFFERVESENT TAB 25 MEQ GT SCH (10:00)
[2022-06-10] MEDS: FLORASTOR (S. BOULARDII) 250 MG CAP PO SCH ×2 (10:17→21:51)
[2022-06-10] MEDS: B-COMPLEX W/ C & FOLIC ACID(NEPHROVITE TAB) PO SCH (10:17)
[2022-06-10] MEDS: ASPirin 81 mg TAB PO SCH (10:17)
[2022-06-10] MEDS: CLOPIDOGREL BISULFATE 75 MG TAB PO SCH (10:17)
[2022-06-10 13:00] VITALS: BP 109/69
[2022-06-10 17:00] VITALS: BP 114/78
[2022-06-10] MEDS: ATORVASTATIN 20 MG TAB PO SCH (21:51)
[2022-06-10 22:00] VITALS: BP 119/82
[2022-06-11] MEDS: CHOLESTYRAMINE 4 GM POWDER PO SCH ×2 (01:17→13:00)
[2022-06-11 05:00] VITALS: BP 100/72
[2022-06-11] MEDS: SODIUM CHLOR 0.9% PF (SALINE LOCK) 10ML VIAL/SYR IV SCH ×2 (06:00→14:00)
[2022-06-11] MEDS: metroNIDAZOLE 500MG/100ML 100 ML IV SCH ×2 (06:47→14:00)
[2022-06-11] MEDS: InsuLIN REG 1unit/0.01ml Soln (100units/ml) SC SCH ×3 (06:48→17:00)
[2022-06-11] MEDS: ACCU-CHEK COMFORT CURVE STRIP VI SCH ×3 (06:48→17:00)
[2022-06-11] MEDS: VANCOMYCIN HCL 125MG/5ML ORAL SOL PO SCH ×3 (06:48→18:00)
[2022-06-11] MEDS: MIDODRINE HCL 10 MG TAB PO SCH ×3 (06:48→18:00)
[2022-06-11 08:03] LABS: Basophils # (auto) 0.1 10 ^3/uL (0-0.2); Basophils % (auto) 0.9 % (0.0-2.0); Eosinophils # (auto) 0.1 10 ^3/uL (0-0.8); Lymphocytes # (auto) 1.7 10 ^3/uL (0.4-5.4)
[2022-06-11 08:05] LABS: Eosinophils % (auto) 1.1 % (0.0-7.0); Hematocrit 37.6 % (36.0-46.0); Hemoglobin 11.4 g/dL (12.2-16.2); Lymphocytes % (auto) 22.3 % (10.0-50.0); Mean Corpuscular Hemoglobin 29.9 pg (28.0-32.0); Mean Corpuscular Hgb Conc. 30.2 g/dL (32.0-36.0); Mean Corpuscular Volume 98.7 fL (80.0-100.0); Monocytes # (auto) 0.5 10 ^3/uL (0-1.3); Monocytes % (auto) 6.5 % (0.0-12.0); Neutrophils # (auto) 5.2 10 ^3/uL (1.6-8.6); Neutrophils % (auto) 69.2 % (37.0-80.0); Nucleated Red Blood Cells % 0.3 %; Red Blood Cells 3.81 10^6/uL (4.0-5.20); Red Cell Distribution Width 18.8 % (11.8-14.3); White Blood Cell 7.5 10^3/uL (4.4-10.8)
[2022-06-11 08:25] VITALS: BP 99/73
[2022-06-11] MEDS: SEVELAMER 800 MG TAB PO SCH (08:29)
[2022-06-11] MEDS: ASPirin 81 mg TAB PO SCH (10:00)
[2022-06-11] MEDS: CLOPIDOGREL BISULFATE 75 MG TAB PO SCH (10:00)
[2022-06-11] MEDS: FLORASTOR (S. BOULARDII) 250 MG CAP PO SCH (10:00)
[2022-06-11] MEDS: POTASSIUM EFFERVESENT TAB 25 MEQ GT SCH (10:00)
[2022-06-11] MEDS: HEPARIN SODIUM (PORCINE) 5000 UNITS/ML 1ML VIAL SC SCH (10:00)
[2022-06-11] MEDS: B-COMPLEX W/ C & FOLIC ACID(NEPHROVITE TAB) PO SCH (10:00)
[2022-06-11] MEDS ORDERED: MID10T PO (10:10)
[2022-06-11] MEDS ORDERED: CHL4PW PO (10:10)
[2022-06-11] MEDS ORDERED: SACC250C PO (10:10)
[2022-06-11] MEDS ORDERED: VANC125PO PO (10:10)
[2022-06-11 12:29] VITALS: BP 115/74
[2022-06-12] MEDS ORDERED: SODIUM CHL 0.9% 1000 ML BAG XX ONE (07:00)
[2022-06-12] MEDS ORDERED: EPOETIN ALFA-EPBX 4,000 UNIT/ML VIAL SC ONE (21:00)
== END 2022-06-11 16:39 | disposition home health service (06) | DRG 248 ==
LOC: ER 14:32 → OVERFLOW 23:47 → ICU WEST 06-03 05:29 → TELE-WESTW 06-07 15:15
PROVIDERS: ADMIT Internal Medicine; ATTEND Internal Medicine
PROC: 05HC33Z Insertion of Infusion Device into Left Basilic Vein, Percutaneous Approach (ICD-10-PCS; 2022-06-02)
PROC: B54NZZA Ultrasonography of Left Upper Extremity Veins, Guidance (ICD-10-PCS; 2022-06-02)
PROC: 5A1D70Z Performance of Urinary Filtration, Intermittent, Less than 6 Hours Per Day (ICD-10-PCS; 2022-06-06)
PROC: 5A1D70Z Performance of Urinary Filtration, Intermittent, Less than 6 Hours Per Day (ICD-10-PCS; 2022-06-07)
PROC: 5A1D70Z Performance of Urinary Filtration, Intermittent, Less than 6 Hours Per Day (ICD-10-PCS; principal; 2022-06-09)
DX: A04.72 Enterocolitis due to Clostridium difficile, not specified as recurrent (principal); R57.1 Hypovolemic shock; I50.23 Acute on chronic systolic (congestive) heart failure; L89.210 Pressure ulcer of right hip, unstageable; I21.A1 Myocardial infarction type 2; E44.1 Mild protein-calorie malnutrition; E87.2 Acidosis; L89.322 Pressure ulcer of left buttock, stage 2; I42.9 Cardiomyopathy, unspecified; D63.1 Anemia in chronic kidney disease; E83.39 Other disorders of phosphorus metabolism; E88.09 Other disorders of plasma-protein metabolism, not elsewhere classified; N13.6 Pyonephrosis; L89.152 Pressure ulcer of sacral region, stage 2; I13.2 Hypertensive heart and chronic kidney disease with heart failure and with stage 5 chronic kidney disease, or end stage renal disease; E87.5 Hyperkalemia; N18.6 End stage renal disease; E11.22 Type 2 diabetes mellitus with diabetic chronic kidney disease; E87.6 Hypokalemia; K21.9 Gastro-esophageal reflux disease without esophagitis; Z20.822 Contact with and (suspected) exposure to COVID-19; E78.5 Hyperlipidemia, unspecified; E86.0 Dehydration; I25.10 Atherosclerotic heart disease of native coronary artery without angina pectoris; Z79.4 Long term (current) use of insulin; Z83.3 Family history of diabetes mellitus; Z99.2 Dependence on renal dialysis; I25.2 Old myocardial infarction; Z90.710 Acquired absence of both cervix and uterus; Z98.61 Coronary angioplasty status; Z88.1 Allergy status to other antibiotic agents; Z88.5 Allergy status to narcotic agent
CPT/HCPCS: 36415; 36600; 71045; 74176; 80048; 80053; 80061; 82533; 82805; 82962; 83036; 83605; 83690; 83735; 83880; 84100; 84443; 84484; 85025; 85048; 87045; 87081; 87427; 87493; 90935; 93005; 96360; 96361; C9113; G0378; J1642; J1815; J2405; J3480; J3490; P9047

== ENCOUNTER 2022-06-12 14:35 | Inpatient (IN) | payer MEDICAID ==
[~2022-06-12] VITALS: Ht 152.4 cm; Wt 46.8 kg
[~2022-06-12 14:35] MED LIST changes: -ATOR10TA52 PO; +CHL4PW PO; -FAMO-12 PO; -FERR-20 PO; +MID10T PO; +SACC250C PO; -SERT50TA19 PO; -THYR90TA PO
[2022-06-12 15:46] LABS: Eosinophils # (auto) 0 10 ^3/uL (0-0.8); Lymphocytes # (auto) 1.4 10 ^3/uL (0.4-5.4); Mean Corpuscular Hgb Conc. 30.9 g/dL (32.0-36.0); Monocytes # (auto) 0.3 10 ^3/uL (0-1.3); Red Cell Distribution Width 19.3 % (11.8-14.3)
[2022-06-12 15:47] LABS: Basophils # (auto) 0.1 10 ^3/uL (0-0.2); Basophils % (auto) 0.9 % (0.0-2.0); Eosinophils % (auto) 0.5 % (0.0-7.0); Hematocrit 38.1 % (36.0-46.0); Hemoglobin 11.8 g/dL (12.2-16.2); Lymphocytes % (auto) 24.9 % (10.0-50.0); Mean Corpuscular Hemoglobin 29.7 pg (28.0-32.0); Mean Corpuscular Volume 96.3 fL (80.0-100.0); Monocytes % (auto) 5.6 % (0.0-12.0); Neutrophils # (auto) 3.8 10 ^3/uL (1.6-8.6); Neutrophils % (auto) 68.1 % (37.0-80.0); Nucleated Red Blood Cells % 0.3 %; Red Blood Cells 3.96 10^6/uL (4.0-5.20); White Blood Cell 5.6 10^3/uL (4.4-10.8)
[2022-06-12] MEDS ORDERED: NOREPINEPHRINE 8 MG/250ML KIT 250 ML IV SCH (16:00)
[2022-06-12] MEDS ORDERED: SODIUM CHLORIDE 0.9% 500 ML IV ONE ×2 (16:00→21:15)
[2022-06-12 16:01] LABS: INR 1.51 (0.9-1.15)
[2022-06-12 16:03] LABS: Albumin 2.3 g/dL (3.4-5.0); Potassium 3.5 mmol/L (3.5-5.1)
[2022-06-12 16:08] LABS: BUN/Creatinine Ratio 4.1; Bilirubin, Total 0.4 mg/dL (0.2-1.0); Total Protein 6.7 g/dL (6.4-8.2)
[2022-06-12] MEDS ORDERED: MORPHINE SULFATE INJ 2 MG/ml SYRG IV PRN (23:45)
[2022-06-12] MEDS ORDERED: DOCUSATE SOD 100 MG CAP PO PRN (23:45)
[2022-06-12] MEDS ORDERED: ONDANSETRON HCL 4 MG/2 ML VIAL IV PRN (23:45)
[2022-06-13 00:34] LABS: Magnesium 2.3 mg/dL (1.6-2.6); Phosphorus 3.2 mg/dL (2.5-4.90)
[2022-06-13] MEDS ORDERED: HEPARIN SODIUM (PORCINE) 5000 UNITS/ML 1ML VIAL SC SCH ×2 (06:00→18:00)
[2022-06-13 06:23] LABS: Basophils # (auto) 0 10 ^3/uL (0-0.2); Eosinophils # (auto) 0.1 10 ^3/uL (0-0.8); Neutrophils # (auto) 2.2 10 ^3/uL (1.6-8.6); Red Cell Distribution Width 19.5 % (11.8-14.3)
[2022-06-13 06:28] LABS: Basophils % (auto) 0.7 % (0.0-2.0); Eosinophils % (auto) 1.3 % (0.0-7.0); Hemoglobin 11.8 g/dL (12.2-16.2); Lymphocytes # (auto) 1.9 10 ^3/uL (0.4-5.4); Lymphocytes % (auto) 41.8 % (10.0-50.0); Mean Corpuscular Hemoglobin 29.7 pg (28.0-32.0); Mean Corpuscular Hgb Conc. 30.3 g/dL (32.0-36.0); Mean Corpuscular Volume 98.1 fL (80.0-100.0); Monocytes # (auto) 0.4 10 ^3/uL (0-1.3); Monocytes % (auto) 8.3 % (0.0-12.0); Neutrophils % (auto) 47.9 % (37.0-80.0); Nucleated Red Blood Cells % 0.4 %; Red Blood Cells 3.97 10^6/uL (4.0-5.20); White Blood Cell 4.6 10^3/uL (4.4-10.8)
[2022-06-13 06:36] LABS: Albumin 2.2 g/dL (3.4-5.0); Calcium 7.7 mg/dL (8.5-10.1); Potassium 3.4 mmol/L (3.5-5.1)
[2022-06-13 06:40] LABS: BUN/Creatinine Ratio 4.1; Bilirubin, Total 0.4 mg/dL (0.2-1.0); Total Protein 6.7 g/dL (6.4-8.2)
[2022-06-13] MEDS: MIDODRINE HCL 10 MG TAB PO SCH ×2 (06:52→19:00)
[2022-06-13] MEDS: CHOLESTYRAMINE 4 GM POWDER PO SCH ×2 (07:00→10:45)
[2022-06-13] MEDS: VANCOMYCIN HCL 125MG/5ML ORAL SOL PO SCH ×3 (07:49→21:45)
[2022-06-13] MEDS ORDERED: SODIUM CHL 0.9% 1000 ML BAG XX ONE (09:30)
[2022-06-13] MEDS ORDERED: ALBUMIN 25% 100 ML IV ONE (12:15)
[2022-06-13 16:05] VITALS: BP 112/50
[2022-06-13 16:07] VITALS: BP 112/50
[2022-06-13 16:10] VITALS: BP 112/50
[2022-06-13] MEDS ORDERED: DEXTROSE (50%) 50ML SYRG IV ONE (18:30)
[2022-06-13] MEDS ORDERED: DEXTROSE (50%) 50ML SYRG IV PRN (18:30)
[2022-06-13] MEDS: CLOPIDOGREL BISULFATE 75 MG TAB PO SCH (19:01)
[2022-06-13] MEDS: ASPirin-EC 81 mg tab PO SCH (19:01)
[2022-06-13] MEDS: FLORASTOR (S. BOULARDII) 250 MG CAP PO SCH (21:44)
[2022-06-14 05:00] VITALS: BP 96/77
[2022-06-14] MEDS: VANCOMYCIN HCL 125MG/5ML ORAL SOL PO SCH ×2 (05:32→11:00)
[2022-06-14] MEDS: MIDODRINE HCL 10 MG TAB PO SCH ×2 (05:33→11:00)
[2022-06-14 07:55] VITALS: BP 89/55
[2022-06-14 09:00] VITALS: BP 89/55
[2022-06-14] MEDS: ASPirin-EC 81 mg tab PO SCH (09:30)
[2022-06-14] MEDS: CLOPIDOGREL BISULFATE 75 MG TAB PO SCH (09:30)
[2022-06-14] MEDS: FLORASTOR (S. BOULARDII) 250 MG CAP PO SCH (09:30)
[2022-06-14 13:00] VITALS: BP 96/63
[2022-06-14] MEDS: CHOLESTYRAMINE 4 GM POWDER PO SCH (13:43)
[2022-06-14 14:02] VITALS: BP 96/69
[2022-06-15] MEDS ORDERED: SODIUM CHL 0.9% 1000 ML BAG XX ONE (07:00)
== END 2022-06-14 17:00 | disposition home health service (06) | DRG 469 ==
LOC: ER 14:35 → EDBD 14:35 → TELE 23:47 → TELE-WESTW 06-13 15:02
PROVIDERS: ADMIT Nurse Practitioner Family; ATTEND Hospitalist
PROC: 5A1D70Z Performance of Urinary Filtration, Intermittent, Less than 6 Hours Per Day (ICD-10-PCS; principal; 2022-06-13)
DX: N17.9 Acute kidney failure, unspecified (principal); I21.4 Non-ST elevation (NSTEMI) myocardial infarction; G93.41 Metabolic encephalopathy; I13.2 Hypertensive heart and chronic kidney disease with heart failure and with stage 5 chronic kidney disease, or end stage renal disease; E44.1 Mild protein-calorie malnutrition; D63.1 Anemia in chronic kidney disease; I95.9 Hypotension, unspecified; E88.09 Other disorders of plasma-protein metabolism, not elsewhere classified; E11.22 Type 2 diabetes mellitus with diabetic chronic kidney disease; I50.22 Chronic systolic (congestive) heart failure; N18.6 End stage renal disease; E86.0 Dehydration; R62.7 Adult failure to thrive; E78.5 Hyperlipidemia, unspecified; I25.10 Atherosclerotic heart disease of native coronary artery without angina pectoris; Z20.822 Contact with and (suspected) exposure to COVID-19; I25.2 Old myocardial infarction; Z79.02 Long term (current) use of antithrombotics/antiplatelets; Z83.3 Family history of diabetes mellitus; Z90.710 Acquired absence of both cervix and uterus; Z95.1 Presence of aortocoronary bypass graft; Z95.5 Presence of coronary angioplasty implant and graft; Z98.891 History of uterine scar from previous surgery; Z99.2 Dependence on renal dialysis; Z88.1 Allergy status to other antibiotic agents; Z88.5 Allergy status to narcotic agent; Z79.4 Long term (current) use of insulin; Z68.20 Body mass index [BMI] 20.0-20.9, adult
CPT/HCPCS: 36415; 70450; 71045; 80053; 82270; 82962; 83735; 83880; 84100; 84484; 85025; 85048; 85610; 85730; 87040; 87045; 87081; 87427; 87493; 90935; 93005; 96361; 96365; 96372; 97163; G0378; J1642; P9047

== ENCOUNTER 2022-06-25 21:36 | Inpatient (IN) | payer MEDICAID ==
[~2022-06-25] VITALS: Ht 160 cm; Wt 48.6 kg
[2022-06-25 21:40] VITALS: BP 55/32
[2022-06-25] MEDS ORDERED: NOREPINEPHRINE 8 MG/250ML KIT 250 ML IV ONE (21:44)
[2022-06-25] MEDS ORDERED: CALCIUM GLUC 1,000mg/50ml-NS 50 ML IV ONE (21:45)
[2022-06-25] MEDS ORDERED: SODIUM BICARBONATE 8.4 % INJ 50ML VIAL IV ONE (21:45)
[2022-06-25] MEDS ORDERED: SODIUM CHLORIDE 0.9% 1,000 ML IV ONE (21:45)
[2022-06-25] MEDS ORDERED: MIDAZOLAM DRIP 50 mg/50mL 50 ML IV ONE (22:11)
[2022-06-25 22:21] LABS: Basophils # (auto) 0 10 ^3/uL (0-0.2); Basophils % (auto) 0.1 % (0.0-2.0); Eosinophils # (auto) 0 10 ^3/uL (0-0.8); Hematocrit 34.7 % (36.0-46.0); Hemoglobin 10.1 g/dL (12.2-16.2); Lymphocytes # (auto) 0.8 10 ^3/uL (0.4-5.4); Lymphocytes % (auto) 8.6 % (10.0-50.0); Mean Corpuscular Hemoglobin 30.9 pg (28.0-32.0); Mean Corpuscular Hgb Conc. 29.1 g/dL (32.0-36.0); Mean Corpuscular Volume 106.1 fL (80.0-100.0); Monocytes # (auto) 0.3 10 ^3/uL (0-1.3); Monocytes % (auto) 3.7 % (0.0-12.0); Neutrophils # (auto) 7.8 10 ^3/uL (1.6-8.6); Neutrophils % (auto) 87.6 % (37.0-80.0); Red Blood Cells 3.27 10^6/uL (4.0-5.20); White Blood Cell 8.9 10^3/uL (4.4-10.8)
[2022-06-25 22:22] LABS: Nucleated Red Blood Cells % 3.9 %; Red Cell Distribution Width 22.4 % (11.8-14.3)
[2022-06-25] MEDS: NOREPINEPHRINE 8 MG/250ML KIT 250 ML IV SCH (22:29)
[2022-06-25] MEDS ORDERED: MIDAZOLAM DRIP 50 mg/50mL 50 ML IV SCH (22:30)
[2022-06-25] MEDS: MIDAZOLAM DRIP 50 mg/50mL 50 ML IV SCH (22:30)
[2022-06-25 22:37] LABS: Alanine Aminotransferase 11 U/L (13-56); Albumin 2.6 g/dL (3.4-5.0); Anion Gap 21 (5-15); Aspartate Aminotransferase 8 U/L (15-37); BUN/Creatinine Ratio 5.7; Blood Alcohol < 3.0 mg/dL (0-5); Calcium 8.2 mg/dL (8.5-10.1); Chloride 113 mmol/L (98-107); GFR African American 4 mL/min; GFR Non-African American 3 mL/min; Glucose 110 mg/dL (74-106); Magnesium 3.2 mg/dL (1.6-2.6); Potassium 4.1 mmol/L (3.5-5.1); Sodium 141 mmol/L (136-145)
[2022-06-25 22:40] LABS: Alkaline Phosphatase 121 U/L (45-117); Bilirubin, Total 0.3 mg/dL (0.2-1.0); Total Protein 7.2 g/dL (6.4-8.2)
[2022-06-25 22:42] VITALS: BP 55/32
[2022-06-25 22:45] LABS: Carbon Dioxide 7 mmol/L (21-32)
[2022-06-25 22:46] LABS: Blood Urea Nitrogen 80 mg/dL (7-18)
[2022-06-25] MEDS ORDERED: SODIUM CHLORIDE 0.9% 2,000 ML IV ONE (23:15)
[2022-06-25] MEDS ORDERED: fentaNYL Drip 2500mCg/250mlNS 250 ML IV ONE (23:22)
[2022-06-25] MEDS ORDERED: fentaNYL Drip 2500mCg/250mlNS 250 ML IV SCH ×2 (23:30→23:45)
[2022-06-25 23:34] LABS: Urine Bacteria NONE SEEN /hpf (None Seen); Urine WBC 14270 /hpf (0 - 5); Urine WBC Clumps PRESENT /hpf (None Seen)
[2022-06-25 23:38] LABS: Amphetamine Screen, Urine NEGATIVE (NEGATIVE); Barbiturate Scree,Urine NEGATIVE (NEGATIVE); Benzodiazephine Screen, Urine NEGATIVE (NEGATIVE); Cannabinoid Screen, Urine NEGATIVE (NEGATIVE); Cocaine Screen, Urine NEGATIVE (NEGATIVE); Opiate Scree,Urine NEGATIVE (NEGATIVE); Phencyclidine Screen, Urine NEGATIVE (NEGATIVE); Urine Blood 3+ /uL (Negative)
[2022-06-26] VITALS (33 sets, daily range): BP systolic 67–118; BP diastolic 32–75
[2022-06-26] MEDS: MIDAZOLAM DRIP 50 mg/50mL 50 ML IV SCH ×2 (01:10→08:24)
[2022-06-26] MEDS ORDERED: SODIUM BICARBONATE 8.4 % INJ 50ML VIAL IV ONE ×6 (01:30→08:45)
[2022-06-26] MEDS ORDERED: SODIUM BICARB 50ML SYR 150 ML in SODIUM CHLORIDE 0.9% 1,000 ML IV ONE (01:45)
[2022-06-26] MEDS ORDERED: MAGNESIUM SULFATE 1GM/100ML 100 ML IV ONE (02:12)
[2022-06-26] MEDS ORDERED: VANCOMYCIN 1GM/250ML 250 ML IV ONE (02:45)
[2022-06-26] MEDS ORDERED: PIPERACILLIN-TAZO 4.5GM 100 ML IV ONE (02:45)
[2022-06-26] MEDS ORDERED: PHENYLEPHRINE IV 250 ML IV ONE ×2 (02:49→03:45)
[2022-06-26] MEDS ORDERED: DOPamine 1600MCG/ML D5W 250 ML IV ONE (03:00)
[2022-06-26] MEDS ORDERED: VASOPRESSIN 50 UNITS in D5W 5% 247.5 ML IV SCH ×2 (03:00→06:15)
[2022-06-26] MEDS ORDERED: PHENYLEPHRINE IV 250 ML IV SCH (03:30)
[2022-06-26 03:40] LABS: Lactic Acid w/Reflex 6.3 mmol/L (0.4-2.0)
[2022-06-26 03:43] LABS: INR 1.24 (0.9-1.15); Partial Thromboplastin Time 60.9 sec (24.6-33.4)
[2022-06-26] MEDS ORDERED: ALBUMIN 25% 50 ML IV ONE (04:15)
[2022-06-26] MEDS ORDERED: VANCOMYCIN PER PHARMACY 0 MG IV SCH (04:15)
[2022-06-26] MEDS ORDERED: NITROGLYCERIN 0.4 MG SL TAB SL PRN (04:15)
[2022-06-26] MEDS ORDERED: PIPERACILLIN-TAZOB 2.25GM 0.75 GM in D5W 5% 50 ML IV SCH (04:15)
[2022-06-26] MEDS ORDERED: DEXTROSE (50%) 50ML SYRG IV PRN (04:15)
[2022-06-26] MEDS ORDERED: MORPHINE SULFATE INJ 2 MG/ml SYRG IV PRN (04:15)
[2022-06-26] MEDS ORDERED: ONDANSETRON HCL 4 MG/2 ML VIAL IV PRN (04:15)
[2022-06-26] MEDS ORDERED: SODIUM BICARBONATE 50ML VIAL 100 ML in SOD CHL 0.45% 1,000 ML IV SCH (05:45)
[2022-06-26] MEDS ORDERED: VASOPRESSIN 20 UNIT/ML ONE (05:52)
[2022-06-26] MEDS ORDERED: InsuLIN REG 1unit/0.01ml Soln (100units/ml) SC SCH (06:00)
[2022-06-26] MEDS ORDERED: ACCU-CHEK COMFORT CURVE STRIP VI SCH (06:00)
[2022-06-26] MEDS ORDERED: EPINEPHrine HCL 250 ML IV SCH (06:15)
[2022-06-26] MEDS: NOREPINEPHRINE 8 MG/250ML KIT 250 ML IV SCH (06:38)
[2022-06-26] MEDS ORDERED: NOREPINEPHRINE BITARTRATE 32 MG in SODIUM CHL 0.9% 218 ML IV SCH (07:45)
[2022-06-26] MEDS ORDERED: PHENYLEPHRINE INJ 80 MG in SODIUM CHL 0.9% 242 ML IV SCH (07:45)
[2022-06-26] MEDS ORDERED: SODIUM BICARBONATE 50ML VIAL 150 ML in SOD CHL 0.45% 1,000 ML IV SCH ×2 (08:00→08:30)
[2022-06-26] MEDS ORDERED: PANTOPRAZOLE 40 MG/10 ML VIAL INJ IV SCH (10:00)
[2022-06-26] MEDS ORDERED: PIPERACILLIN-TAZOB 2.25GM 50 ML IV SCH (10:00)
[2022-06-26] MEDS ORDERED: POTASSIUM CHL 20MEQ/100ML 100 ML IV SCH (11:15)
[2022-06-26] MEDS ORDERED: SODIUM BICARBONATE 8.4% INJ 50ML SYRINGE IV ONE (12:11)
[2022-06-26] MEDS ORDERED: MAGNESIUM SULF 50% 40 MEQ/10 ML VL IV ONE (12:11)
[2022-06-26] MEDS ORDERED: AMIODARONE HCL (50 MG/ ML) 3 ML VIAL IV ONE (12:11)
[2022-06-26] MEDS ORDERED: EPINEPHrine HCL 1 MG/10 ML SYRG IV ONE (12:11)
[2022-06-26 12:13] LABS: Sodium 162 mmol/L (136-145)
[2022-06-26 12:14] LABS: Alanine Aminotransferase 10 U/L (13-56); Albumin 1.6 g/dL (3.4-5.0); Alkaline Phosphatase 68 U/L (45-117); Anion Gap 16 (5-15); Aspartate Aminotransferase 24 U/L (15-37); BUN/Creatinine Ratio 6.2; Blood Urea Nitrogen 62 mg/dL (7-18); Calcium 6.4 mg/dL (8.5-10.1); Carbon Dioxide 22 mmol/L (21-32); Chloride 124 mmol/L (98-107); GFR African American 5 mL/min; GFR Non-African American 4 mL/min; Glucose 106 mg/dL (74-106); Potassium 1.9 mmol/L (3.5-5.1); Total Protein 4.4 g/dL (6.4-8.2)
== END 2022-06-26 14:27 | DRG 720 ==
LOC: EDBD 21:36 → ER 21:37 → OVERFLOW 06-26 04:09 → ICU WEST 06-26 04:58
PROVIDERS: ADMIT Nurse Practitioner; ATTEND Internal Medicine Pulmonary Disease
PROC: 5A1935Z Respiratory Ventilation, Less than 24 Consecutive Hours (ICD-10-PCS; principal; 2022-06-26)
PROC: 5A12012 Performance of Cardiac Output, Single, Manual (ICD-10-PCS; 2022-06-26)
PROC: 0BH17EZ Insertion of Endotracheal Airway into Trachea, Via Natural or Artificial Opening (ICD-10-PCS; 2022-06-26)
DX: A41.9 Sepsis, unspecified organism (principal); J96.01 Acute respiratory failure with hypoxia; I46.9 Cardiac arrest, cause unspecified; R65.21 Severe sepsis with septic shock; G93.40 Encephalopathy, unspecified; E43 Unspecified severe protein-calorie malnutrition; E86.0 Dehydration; Z66 Do not resuscitate; E87.21 Acute metabolic acidosis; E11.22 Type 2 diabetes mellitus with diabetic chronic kidney disease; I12.0 Hypertensive chronic kidney disease with stage 5 chronic kidney disease or end stage renal disease; E78.5 Hyperlipidemia, unspecified; N39.0 Urinary tract infection, site not specified; N18.6 End stage renal disease; Z83.3 Family history of diabetes mellitus; Z90.710 Acquired absence of both cervix and uterus; Z91.15 Patient's noncompliance with renal dialysis; Z99.11 Dependence on respirator [ventilator] status; Z99.2 Dependence on renal dialysis; Z68.1 Body mass index [BMI] 19.9 or less, adult; I25.2 Old myocardial infarction; Z88.8 Allergy status to other drugs, medicaments and biological substances
CPT/HCPCS: 36415; 36600; 70450; 71045; 71250; 72125; 74176; 80053; 80307; 80320; 81001; 82805; 82962; 83605; 83735; 84484; 85025; 85379; 85610; 85730; 86850; 86900; 86901; 87040; 87070; 87077; 87081; 87086; 87186; 87205; 92950; 93005; 94003; 96365; 96366; 96367; 96368; 96375; 99291; C9113; G0378; J0171; J2250; J2543; J7060